=== PATIENT | female | born 1935 | race Caucasian/White ===

== ENCOUNTER → 2017-01-10 | Outpatient (REF) | payer MEDICARE, OTHER ==
[~2017-01-10] MED LIST: ALPR0.5T3 PO; ASPI81TA85 PO; ATOR1TAB19 PO; CELL250C PO; CITRTAB15 PO; CLON0.5T PO; CYCL10TA PO; EXEL4.6D TD; FOLI1TAB4 PO; FURO40TA2 PO; GABA-279 PO; ICAPCAP PO; KETO0.5S15 OD; META1TAB19 PO; MULT1TAB8 PO; PANT40TA2 PO; PIOG15TA3 PO; POLYOPD OU; SERT25TA PO; TRAM50TA2 PO
[2017-01-10 12:25] LABS: BASO % 0.7 % (0.0-1.0); EOS # 0.1 K/mm3 (0.0-0.50); EOS % 3.2 % (0.0-3.0); LARGE UNSTAINED CELL # 0.1 K/mm3 (0.0-0.4); LARGE UNSTAINED CELL % 1.7 % (0.0-4.0); LYMPH # 1.3 K/mm3 (1.5-4.5); LYMPH % 29.2 % (24.0-44.0); MEAN CORPUSCULAR HEMOGLOBIN 29.5 pg (27.0-33.0); MEAN CORPUSCULAR HGB CONC 32.2 g/dl (32.0-36.5); MEAN CORPUSCULAR VOLUME 91.7 fl (80.0-96.0); MONO # 0.4 K/mm3 (0.0-0.8); MONO % 8.1 % (0.0-5.0); NEUTROPHILS # 2.5 K/mm3 (1.8-7.7); NEUTROPHILS % 57.1 % (36.0-66.0); PLATELET COUNT, AUTOMATED 200 k/mm3 (150-450); RED CELL DISTRIBUTION WIDTH 13.8 % (11.5-14.5); WHITE BLOOD COUNT 4.3 K/mm3 (4.0-10.0)
[2017-01-10 14:49] LABS: ALBUMIN 3.8 GM/DL (3.2-5.2); ALBUMIN/GLOBULIN RATIO 1.06 (1.00-1.93); BILIRUBIN,TOTAL 0.4 MG/DL (0.2-1.0); CALCIUM LEVEL 8.9 MG/DL (8.8-10.2); CREATININE FOR GFR 1.25 MG/DL (0.55-1.02); GLOMERULAR FILTRATION RATE 43.7 (>32); POTASSIUM SERUM 3.9 MEQ/L (3.5-5.1); TOTAL PROTEIN 7.4 GM/DL (6.4-8.2)
== END ==
LOC: M SFHCADAM 08:13
PROVIDERS: ATTEND Physician Assistant Medical
DX: K21.9 Gastro-esophageal reflux disease without esophagitis (principal); E78.2 Mixed hyperlipidemia; E11.9 Type 2 diabetes mellitus without complications

== ENCOUNTER 2017-03-02 16:59 | Emergency (ER) | payer MEDICARE, BC, OTHER ==
[~2017-03-02 16:59] MED LIST changes: -CELL250C PO; -CLON0.5T PO; -META1TAB19 PO; -SERT25TA PO
[2017-03-02] MEDS ORDERED: CLON0.5T PO (17:38)
[2017-03-02] MEDS ORDERED: SERT25TA PO (17:38)
[2017-03-02] MEDS ORDERED: CELL250C PO (17:39)
[2017-03-02] MEDS ORDERED: META1TAB19 PO (17:40)
--- NOTE | 2017-03-02 18:04 | REP ---
CT Head without contrast HISTORY: Fall COMPARISON: 05/16/2015 Areas of decreased attenuation are present in the periventricular white matter. This represents small-vessel ischemic disease. There is no intraparenchymal hemorrhage, acute infarct, mass or midline shift. The ventricular system and cortical sulci are dilated consistent with moderate volume loss. There is no extra cerebral collection. There is no fracture. The visualized sinuses are clear. IMPRESSION: 1. Small vessel ischemic disease. 2. Moderate volume loss. Signed by Ernesto Son MD 03/02/2017 05:55 P
--- NOTE | 2017-03-02 18:12 | REP ---
CT CERVICAL SPINE WITHOUT CONTRAST: HISTORY: Fall. There is no acute fracture. Disc bulges are present at the C3-4 and C4-5 levels. Disc bulges with associated osteophyte formation are present at the C5-6 and C6-7 levels. There is minimal narrowing of the spinal canal. Uncinate process and or facet hypertrophy are present at the C3-4 through C7-T1 levels. These findings produce minimal to moderate narrowing of the neural foramina. The C5-6 through C7-T1 intervertebral discs are decreased in height consistent with disc degeneration. There are 2 mm of anterior subluxation of C7 on T1. IMPRESSION: 1. There is no acute fracture. 2. There is cervical spondylosis at the C3-4 through C7-T1 levels. Signed by Ernesto Son MD 03/02/2017 06:25 P
--- NOTE | 2017-03-02 18:57 | REP ---
THORACIC SPINE, THREE VIEWS: HISTORY: Fall. There is no acute fracture or subluxation. There is loss of height at several lower thoracic intervertebral discs. Osteophytes are present throughout the lumbar spine. The bony structure is osteopenic. IMPRESSION: There is no acute fracture or subluxation. Signed by Ernesto Son MD 03/02/2017 07:01 P
--- NOTE | 2017-03-02 18:59 | REP ---
PARTIAL LUMBAR SPINE, THREE VIEWS: HISTORY: Fall. There is no acute fracture. The intervertebral discs are decreased in height consistent with disc degeneration. Osteophytes are present throughout the lumbar spine. There is sclerosis of the L3-4 through L5-S1 facets. There are 8 mm of grade 1 spondylolisthesis of L4 on L5. IMPRESSION: Degenerative change as described above. Signed by Ernesto Son MD 03/02/2017 07:01 P
--- NOTE | 2017-03-02 19:00 | REP ---
RIGHT ELBOW, FOUR VIEWS: HISTORY: Fall. There is no acute fracture or dislocation. The joint space is normal in appearance. Osteophytes are present on the ulna. IMPRESSION: Degenerative change as described above. Signed by Ernesto Son MD 03/02/2017 07:01 P
[2017-03-02] MEDS ORDERED: NORCO 5/325MG TABLET (BULK FOR ED) PO ONE (19:15)
[2017-03-02 19:32] VITALS: BP 170/86
== END 2017-03-02 19:44 | disposition home or self-care (01) ==
LOC: M ED 16:59
DX: S09.90XA Unspecified injury of head, initial encounter (principal); S40.022A Contusion of left upper arm, initial encounter; S50.02XA Contusion of left elbow, initial encounter; W19.XXXA Unspecified fall, initial encounter; Y92.099 Unspecified place in other non-institutional residence as the place of occurrence of the external cause; Y93.9 Activity, unspecified; Y99.9 Unspecified external cause status; M47.812 Spondylosis without myelopathy or radiculopathy, cervical region; M47.813 Spondylosis without myelopathy or radiculopathy, cervicothoracic region; M51.36 Other intervertebral disc degeneration, lumbar region; M43.16 Spondylolisthesis, lumbar region; M25.78 Osteophyte, vertebrae; I25.2 Old myocardial infarction; Z86.73 Personal history of transient ischemic attack (TIA), and cerebral infarction without residual deficits; M19.90 Unspecified osteoarthritis, unspecified site; M32.9 Systemic lupus erythematosus, unspecified; Z79.82 Long term (current) use of aspirin; Z79.899 Other long term (current) drug therapy; Z88.2 Allergy status to sulfonamides

== ENCOUNTER → 2017-07-12 | Outpatient (REF) | payer MEDICARE, OTHER ==
[2017-07-12 20:07] LABS: ALBUMIN 3.6 GM/DL (3.2-5.2); ALBUMIN/GLOBULIN RATIO 1.03 (1.00-1.93); ALKALINE PHOSPHATASE 74 U/L (45-117); ALT/SGPT 21 U/L (12-78); ANION GAP 8 MEQ/L (8-16); AST/SGOT 22 U/L (7-37); BILIRUBIN,TOTAL 0.4 MG/DL (0.2-1.0); BLOOD UREA NITROGEN 16 MG/DL (7-18); CALCIUM LEVEL 8.5 MG/DL (8.8-10.2); CARBON DIOXIDE LEVEL 30 MEQ/L (21-32); CHLORIDE LEVEL 104 MEQ/L (98-107); CHOLESTEROL LEVEL 190 MG/DL (<200); CREATININE FOR GFR 1.05 MG/DL (0.55-1.02); GLOMERULAR FILTRATION RATE 53.3 (>32); GLUCOSE, FASTING 81 MG/DL (83-110); HDL CHOLESTEROL 50 MG/DL (>40); LDL CHOLESTEROL 104.6 MG/DL (<100); NON-HDL-C 140 MG/DL; POTASSIUM SERUM 3.8 MEQ/L (3.5-5.1); SODIUM LEVEL 142 MEQ/L (136-145); TOTAL PROTEIN 7.1 GM/DL (6.4-8.2); TRIGLYCERIDES LEVEL 177 MG/DL (<150)
[2017-07-12 20:24] LABS: ESTIMATED AVERAGE GLUCOSE 117 MG/DL (60-110); HEMOGLOBIN A1c 5.7 %
== END ==
LOC: M SFHCADAM 11:47
DX: E11.9 Type 2 diabetes mellitus without complications (principal); E78.2 Mixed hyperlipidemia; E03.9 Hypothyroidism, unspecified
CPT/HCPCS: 84443

== ENCOUNTER 2018-02-22 18:26 | Emergency (ER) | payer MEDICARE, BC, OTHER, MEDICAID ==
[2018-02-22 19:13] LABS: BASO # 0.1 10^3/uL (0.0-0.2); BASO % 0.9 % (0.0-1.0); EOS # 0.1 10^3/uL (0.0-0.50); EOS % 2.2 % (0.0-3.0); HEMOGLOBIN 10.8 g/dl (12.0-15.5); IMMATURE GRANULOCYTE % 0.4 % (0-3.0); LYMPH # 1.4 10^3/uL (1.5-4.5); LYMPH % 25.3 % (24.0-44.0); MEAN CORPUSCULAR HEMOGLOBIN 29.3 pg (27.0-33.0); MEAN CORPUSCULAR HGB CONC 31.8 g/dl (32.0-36.5); MEAN CORPUSCULAR VOLUME 92.4 fl (80.0-96.0); MONO # 0.5 10^3/uL (0.0-0.8); MONO % 8.3 % (0.0-5.0); NEUTROPHILS # 3.5 10^3/uL (1.8-7.7); NEUTROPHILS % 62.9 % (36.0-66.0); PLATELET COUNT, AUTOMATED 184 10^3/uL (150-450); RED BLOOD COUNT 3.68 10^6/uL (4.00-5.40); RED CELL DISTRIBUTION WIDTH 13.8 % (11.5-14.5); WHITE BLOOD COUNT 5.6 10^3/uL (4.0-10.0)
[2018-02-22 19:24] LABS: INR 0.98; PROTHROMBIN TIME 13.1 SECONDS (12.1-14.4)
[2018-02-22 19:25] LABS: PARTIAL THROMBOPLASTIN TIME 27.9 SECONDS (25.4-37.6)
[2018-02-22 19:37] LABS: ALBUMIN 3.7 GM/DL (3.2-5.2); ALBUMIN/GLOBULIN RATIO 1.03 (1.00-1.93); ALKALINE PHOSPHATASE 76 U/L (45-117); ALT/SGPT 23 U/L (12-78); ANION GAP 7 MEQ/L (8-16); AST/SGOT 20 U/L (7-37); BILIRUBIN,DIRECT 0.1 MG/DL (0.0-0.2); BILIRUBIN,TOTAL 0.3 MG/DL (0.2-1.0); BLOOD UREA NITROGEN 30 MG/DL (7-18); CALCIUM LEVEL 8.7 MG/DL (8.8-10.2); CARBON DIOXIDE LEVEL 29 MEQ/L (21-32); CHLORIDE LEVEL 107 MEQ/L (98-107); CK-MB VALUE MASS 5.4 NG/ML (<3.6); CPK CREATINE PHOSPHOKINASE 171 U/L (26-192); CREATININE FOR GFR 1.31 MG/DL (0.55-1.30); GLOMERULAR FILTRATION RATE 41.3 (>32); GLUCOSE, FASTING 99 MG/DL (70-100); LIPASE 83 U/L (73-393); MB/CK RELATIVE INDEX 3.15 (< OR =4); POTASSIUM SERUM 3.8 MEQ/L (3.5-5.1); SODIUM LEVEL 143 MEQ/L (136-145); TOTAL PROTEIN 7.3 GM/DL (6.4-8.2); TROPONIN I < 0.02 NG/ML (< 0.10)
== END 2018-02-22 21:43 | disposition home or self-care (01) ==
LOC: M ED 18:26
DX: R07.89 Other chest pain (principal); R29.6 Repeated falls; E11.9 Type 2 diabetes mellitus without complications; I10 Essential (primary) hypertension; K21.9 Gastro-esophageal reflux disease without esophagitis; F41.9 Anxiety disorder, unspecified; E03.9 Hypothyroidism, unspecified; F03.90 Unspecified dementia, unspecified severity, without behavioral disturbance, psychotic disturbance, mood disturbance, and anxiety; R56.9 Unspecified convulsions; M06.9 Rheumatoid arthritis, unspecified; Z79.82 Long term (current) use of aspirin; Z88.2 Allergy status to sulfonamides
CPT/HCPCS: 71046

== ENCOUNTER → 2018-04-14 | Outpatient (CLI) | payer MEDICARE, OTHER | LOC: M RAD 11:04 | DX: I73.9 Peripheral vascular disease, unspecified (principal); R29.6 Repeated falls; S09.0XXA Injury of blood vessels of head, not elsewhere classified, initial encounter; F02.80 Dementia in other diseases classified elsewhere, unspecified severity, without behavioral disturbance, psychotic disturbance, mood disturbance, and anxiety; X58.XXXA Exposure to other specified factors, initial encounter; Y93.89 Activity, other specified | CPT/HCPCS: 70450 ==

== ENCOUNTER 2018-05-16 15:01 | Inpatient (IN) | payer MEDICARE, OTHER ==
[2018-05-16 18:57] LABS: BASO % 0.3 % (0.0-1.0); EOS # 0.2 10^3/uL (0.0-0.50); EOS % 1.7 % (0.0-3.0); HEMATOCRIT 33.9 % (36.0-47.0); HEMOGLOBIN 10.8 g/dl (12.0-15.5); IMMATURE GRANULOCYTE % 0.3 % (0-3.0); LYMPH # 0.5 10^3/uL (1.5-4.5); LYMPH % 6.3 % (24.0-44.0); MEAN CORPUSCULAR HEMOGLOBIN 29.6 pg (27.0-33.0); MEAN CORPUSCULAR HGB CONC 31.9 g/dl (32.0-36.5); MEAN CORPUSCULAR VOLUME 92.9 fl (80.0-96.0); MONO # 0.6 10^3/uL (0.0-0.8); MONO % 6.5 % (0.0-5.0); NEUTROPHILS # 7.3 10^3/uL (1.8-7.7); NEUTROPHILS % 84.9 % (36.0-66.0); PLATELET COUNT, AUTOMATED 214 10^3/uL (150-450); RED BLOOD COUNT 3.65 10^6/uL (4.00-5.40); RED CELL DISTRIBUTION WIDTH 14.2 % (11.5-14.5); WHITE BLOOD COUNT 8.6 10^3/uL (4.0-10.0)
[2018-05-16 19:35] LABS: ALBUMIN 3.3 GM/DL (3.2-5.2); ALBUMIN/GLOBULIN RATIO 0.83 (1.00-1.93); ALKALINE PHOSPHATASE 79 U/L (45-117); ALT/SGPT 20 U/L (12-78); ANION GAP 11 MEQ/L (8-16); AST/SGOT 22 U/L (7-37); BILIRUBIN,DIRECT 0.2 MG/DL (0.0-0.2); BILIRUBIN,TOTAL 0.5 MG/DL (0.2-1.0); BLOOD UREA NITROGEN 24 MG/DL (7-18); CALCIUM LEVEL 8.6 MG/DL (8.8-10.2); CARBON DIOXIDE LEVEL 28 MEQ/L (21-32); CHLORIDE LEVEL 99 MEQ/L (98-107); CPK CREATINE PHOSPHOKINASE 76 U/L (26-192); CREATININE FOR GFR 1.26 MG/DL (0.55-1.30); FREE T4 1.06 NG/DL (0.76-1.46); GLOMERULAR FILTRATION RATE 43.1 (>32); GLUCOSE, FASTING 102 MG/DL (70-100); LIPASE 1270 U/L (73-393); MB/CK RELATIVE INDEX 1.84 (< OR =4); NT-PRO BNP 1473 PG/ML (<450); POTASSIUM SERUM 3.4 MEQ/L (3.5-5.1); SODIUM LEVEL 138 MEQ/L (136-145); TOTAL PROTEIN 7.3 GM/DL (6.4-8.2); TROPONIN I < 0.02 NG/ML (< 0.10)
[2018-05-16] MEDS: NS 500 ML IV (20:15)
[2018-05-16] MEDS ORDERED: ISOVUE-370 76% 100ML VIAL (Q9967) As Ordered (20:31)
[2018-05-16 20:38] LABS: KETONE, URINE AUTO RFX NEGATIVE (NEGATIVE); LEUKOCYTE ESTERASE UR AUTO RFX NEGATIVE (NEGATIVE); NITRITE, URINE AUTO RFX NEGATIVE (NEGATIVE); RBC, URINE AUTO RFX 2 /HPF (0-3); SPECIFIC GRAVITY UR AUTO RFX 1.009 (1.002-1.035); SQUAM EPITHELIAL CELL UR AURFX 0 /HPF (0-6); WBC, URINE AUTO RFX 0 /HPF (0-3)
[2018-05-16] MEDS ORDERED: ACETAMINOPHEN 500 MG TAB PO (21:00)
[2018-05-16] MEDS: ACETAMINOPHEN 325 MG TAB PO (21:02)
[2018-05-16 21:34] LABS: INFLUENZA A AMPLIFICATION NEGATIVE (NEGATIVE); INFLUENZA B AMPLIFICATION NEGATIVE (NEGATIVE)
[2018-05-16] MEDS ORDERED: MORPHINE 4 MG/ML 1ML VIAL/SYRINGE (J2270) IV (23:45)
[2018-05-17 00:28] LABS: ANION GAP 10 MEQ/L (8-16); BLOOD UREA NITROGEN 21 MG/DL (7-18); CALCIUM LEVEL 8.1 MG/DL (8.8-10.2); CARBON DIOXIDE LEVEL 25 MEQ/L (21-32); CHLORIDE LEVEL 103 MEQ/L (98-107); CREATININE FOR GFR 1.21 MG/DL (0.55-1.30); GLOMERULAR FILTRATION RATE 45.1 (>32); GLUCOSE, FASTING 103 MG/DL (70-100); POTASSIUM SERUM 3.1 MEQ/L (3.5-5.1); SODIUM LEVEL 138 MEQ/L (136-145)
[2018-05-17] MEDS: clonazePAM 1 MG TAB PO ×2 (01:06→20:40)
[2018-05-17] MEDS: GABAPENTIN 100 MG CAP PO ×2 (01:06→20:40)
[2018-05-17] MEDS ORDERED: DEXTROSE 50% 50 ML SYRINGE IV (01:15)
[2018-05-17] MEDS ORDERED: GLUCAGON FOR INJ 1 MG VIAL (J1610) SC (01:15)
[2018-05-17] MEDS ORDERED: GLUCOSE 4 GM CHEW TABLET PO (01:15)
[2018-05-17 05:32] LABS: BASO % 0.5 % (0.0-1.0); EOS # 0.1 10^3/uL (0.0-0.50); EOS % 1.8 % (0.0-3.0); HEMOGLOBIN 9.4 g/dl (12.0-15.5); IMMATURE GRANULOCYTE % 0.2 % (0-3.0); LYMPH # 0.8 10^3/uL (1.5-4.5); LYMPH % 12.3 % (24.0-44.0); MEAN CORPUSCULAR HEMOGLOBIN 29.5 pg (27.0-33.0); MEAN CORPUSCULAR HGB CONC 32.4 g/dl (32.0-36.5); MEAN CORPUSCULAR VOLUME 90.9 fl (80.0-96.0); MONO # 0.5 10^3/uL (0.0-0.8); MONO % 8.4 % (0.0-5.0); NEUTROPHILS # 4.7 10^3/uL (1.8-7.7); NEUTROPHILS % 76.8 % (36.0-66.0); PLATELET COUNT, AUTOMATED 200 10^3/uL (150-450); RED BLOOD COUNT 3.19 10^6/uL (4.00-5.40); RED CELL DISTRIBUTION WIDTH 14.2 % (11.5-14.5); WHITE BLOOD COUNT 6.2 10^3/uL (4.0-10.0)
[2018-05-17 05:51] LABS: ANION GAP 8 MEQ/L (8-16); BLOOD UREA NITROGEN 20 MG/DL (7-18); CALCIUM LEVEL 8.4 MG/DL (8.8-10.2); CARBON DIOXIDE LEVEL 28 MEQ/L (21-32); CHLORIDE LEVEL 103 MEQ/L (98-107); CREATININE FOR GFR 1.09 MG/DL (0.55-1.30); GLOMERULAR FILTRATION RATE 50.9 (>32); GLUCOSE, FASTING 90 MG/DL (70-100); POTASSIUM SERUM 3.2 MEQ/L (3.5-5.1); SODIUM LEVEL 139 MEQ/L (136-145)
[2018-05-17] MEDS: HumaLOG INSULIN (NovoLOG) PER UNIT SC ×4 (07:30→20:05)
[2018-05-17] MEDS: ACETAMINOPHEN TAB 650MG DOSE (2X325MG) PO (08:29)
[2018-05-17] MEDS: SERTRALINE HCL 25 MG TABLET PO ×3 (09:00→20:40)
[2018-05-17] MEDS: PROPRANOLOL 60 MG LA CAP PO (09:00)
[2018-05-17] MEDS: ENOXAPARIN 30 MG/0.3 ML SYR (J1650) SC (09:31)
[2018-05-17] MEDS: FOLIC ACID 1 MG TAB PO (09:31)
[2018-05-17] MEDS: METAXALONE 400 MG 1/2 TAB PO (09:31)
[2018-05-17] MEDS: ATORVASTATIN 10 MG TAB PO (09:31)
[2018-05-17] MEDS: clonazePAM 0.5 MG TAB PO (09:35)
[2018-05-17] MEDS: FUROSEMIDE 40 MG TAB PO (09:35)
[2018-05-17] MEDS: CALCIUM/VITAMIN D 500 MG TAB PO ×2 (09:35→20:39)
[2018-05-17] MEDS: SENOKOT S TAB PO ×2 (09:35→19:42)
[2018-05-17] MEDS: PANTOPRAZOLE 40MG TAB (PROTONIX) PO (09:36)
[2018-05-17 11:29] LABS: ANION GAP 10 MEQ/L (8-16); BLOOD UREA NITROGEN 21 MG/DL (7-18); CALCIUM LEVEL 8.6 MG/DL (8.8-10.2); CARBON DIOXIDE LEVEL 27 MEQ/L (21-32); CHLORIDE LEVEL 103 MEQ/L (98-107); GLOMERULAR FILTRATION RATE 45.6 (>32); GLUCOSE, FASTING 104 MG/DL (70-100); LIPASE 1108 U/L (73-393); POTASSIUM SERUM 3.3 MEQ/L (3.5-5.1); SODIUM LEVEL 140 MEQ/L (136-145)
[2018-05-17 12:41] LABS: BEDSIDE GLUCOSE 115 MG/DL (83-110)
[2018-05-17] MEDS: POTASSIUM CHLORIDE 10 MEQ SR TABLET PO (13:03)
[2018-05-17] MEDS: FLUBLOK(EGG FREE)(QUAD)INFLUENZA VACC 0.5ML SYRINGE (90682)18YRS&OLDER IM (15:42)
[2018-05-17 16:47] LABS: BEDSIDE GLUCOSE 116 MG/DL (83-110)
[2018-05-17 18:21] LABS: ANION GAP 9 MEQ/L (8-16); BLOOD UREA NITROGEN 20 MG/DL (7-18); CALCIUM LEVEL 8.8 MG/DL (8.8-10.2); CARBON DIOXIDE LEVEL 28 MEQ/L (21-32); CHLORIDE LEVEL 103 MEQ/L (98-107); CREATININE FOR GFR 1.29 MG/DL (0.55-1.30); GLOMERULAR FILTRATION RATE 41.9 (>32); GLUCOSE, FASTING 123 MG/DL (70-100); POTASSIUM SERUM 3.7 MEQ/L (3.5-5.1); SODIUM LEVEL 140 MEQ/L (136-145)
[2018-05-17] MEDS: ONDANSETRON 4MG/2ML VIAL (J2405) IV (20:00)
[2018-05-17 20:03] LABS: BEDSIDE GLUCOSE 126 MG/DL (83-110)
[2018-05-17] MEDS: METAXALONE 800 MG TABLET PO (20:39)
[2018-05-17] MEDS: RIVASTIGMINE 13.3 MG/24 HR TD (20:39)
[2018-05-17] MEDS: DYAZIDE 37.5/25 CAP (TRIAM/HCTZ) PO (20:41)
[2018-05-17] MEDS: ACETAMINOPHEN 500 MG TAB PO (20:47)
[2018-05-18] MEDS: ACETAMINOPHEN TAB 650MG DOSE (2X325MG) PO ×2 (00:40→09:33)
[2018-05-18] MEDS: HumaLOG INSULIN (NovoLOG) PER UNIT SC ×4 (06:41→19:58)
[2018-05-18 06:42] LABS: BEDSIDE GLUCOSE 98 MG/DL (83-110)
[2018-05-18 07:05] LABS: BASO % 0.6 % (0.0-1.0); EOS # 0.1 10^3/uL (0.0-0.50); EOS % 2.4 % (0.0-3.0); HEMATOCRIT 29.4 % (36.0-47.0); HEMOGLOBIN 9.3 g/dl (12.0-15.5); IMMATURE GRANULOCYTE % 0.6 % (0-3.0); LYMPH # 1.1 10^3/uL (1.5-4.5); LYMPH % 21.7 % (24.0-44.0); MEAN CORPUSCULAR HEMOGLOBIN 29.4 pg (27.0-33.0); MEAN CORPUSCULAR HGB CONC 31.6 g/dl (32.0-36.5); MONO # 0.4 10^3/uL (0.0-0.8); MONO % 8.9 % (0.0-5.0); NEUTROPHILS # 3.3 10^3/uL (1.8-7.7); NEUTROPHILS % 65.8 % (36.0-66.0); PLATELET COUNT, AUTOMATED 242 10^3/uL (150-450); RED BLOOD COUNT 3.16 10^6/uL (4.00-5.40); RED CELL DISTRIBUTION WIDTH 14.1 % (11.5-14.5); WHITE BLOOD COUNT 4.9 10^3/uL (4.0-10.0)
[2018-05-18 07:31] LABS: ALBUMIN 2.5 GM/DL (3.2-5.2); ALBUMIN/GLOBULIN RATIO 0.63 (1.00-1.93); ALKALINE PHOSPHATASE 70 U/L (45-117); ALT/SGPT 17 U/L (12-78); ANION GAP 8 MEQ/L (8-16); AST/SGOT 18 U/L (7-37); BILIRUBIN,TOTAL 0.2 MG/DL (0.2-1.0); BLOOD UREA NITROGEN 19 MG/DL (7-18); CALCIUM LEVEL 8.4 MG/DL (8.8-10.2); CARBON DIOXIDE LEVEL 27 MEQ/L (21-32); CHLORIDE LEVEL 108 MEQ/L (98-107); CREATININE FOR GFR 1.17 MG/DL (0.55-1.30); GLOMERULAR FILTRATION RATE 46.9 (>32); GLUCOSE, FASTING 95 MG/DL (70-100); LIPASE 969 U/L (73-393); POTASSIUM SERUM 3.7 MEQ/L (3.5-5.1); SODIUM LEVEL 143 MEQ/L (136-145); TOTAL PROTEIN 6.5 GM/DL (6.4-8.2)
[2018-05-18] MEDS: SENOKOT S TAB PO ×2 (09:00→19:53)
[2018-05-18] MEDS: FUROSEMIDE 40 MG TAB PO (09:31)
[2018-05-18] MEDS: PANTOPRAZOLE 40MG TAB (PROTONIX) PO (09:31)
[2018-05-18] MEDS: CALCIUM/VITAMIN D 500 MG TAB PO ×2 (09:31→19:52)
[2018-05-18] MEDS: SERTRALINE HCL 25 MG TABLET PO ×3 (09:32→19:53)
[2018-05-18] MEDS: clonazePAM 0.5 MG TAB PO (09:32)
[2018-05-18] MEDS: FOLIC ACID 1 MG TAB PO (09:32)
[2018-05-18] MEDS: ATORVASTATIN 10 MG TAB PO (09:32)
[2018-05-18] MEDS: METAXALONE 400 MG 1/2 TAB PO (09:33)
[2018-05-18] MEDS: PROPRANOLOL 60 MG LA CAP PO (09:36)
[2018-05-18] MEDS: ENOXAPARIN 30 MG/0.3 ML SYR (J1650) SC (09:37)
[2018-05-18 12:20] LABS: BEDSIDE GLUCOSE 120 MG/DL (83-110)
[2018-05-18] MEDS ORDERED: traMADol 50 MG TAB As Ordered (12:44)
[2018-05-18] MEDS: traMADol 50 MG TAB PO (12:52)
[2018-05-18 16:19] LABS: BEDSIDE GLUCOSE 116 MG/DL (83-110)
[2018-05-18 19:41] LABS: BEDSIDE GLUCOSE 147 MG/DL (83-110)
[2018-05-18] MEDS: DYAZIDE 37.5/25 CAP (TRIAM/HCTZ) PO (19:52)
[2018-05-18] MEDS: GABAPENTIN 100 MG CAP PO (19:52)
[2018-05-18] MEDS: clonazePAM 1 MG TAB PO (19:52)
[2018-05-18] MEDS: ACETAMINOPHEN 500 MG TAB PO (19:53)
[2018-05-18] MEDS: METAXALONE 800 MG TABLET PO (19:53)
[2018-05-18] MEDS: RIVASTIGMINE 13.3 MG/24 HR TD (19:54)
[2018-05-19] MEDS: ACETAMINOPHEN TAB 650MG DOSE (2X325MG) PO (06:19)
[2018-05-19 06:21] LABS: BEDSIDE GLUCOSE 88 MG/DL (83-110)
[2018-05-19] MEDS: HumaLOG INSULIN (NovoLOG) PER UNIT SC ×4 (06:46→21:00)
[2018-05-19 08:19] LABS: BASO % 0.9 % (0.0-1.0); EOS # 0.2 10^3/uL (0.0-0.50); EOS % 3.8 % (0.0-3.0); HEMATOCRIT 32.3 % (36.0-47.0); HEMOGLOBIN 10.2 g/dl (12.0-15.5); IMMATURE GRANULOCYTE % 0.4 % (0-3.0); LYMPH % 21.1 % (24.0-44.0); MEAN CORPUSCULAR HEMOGLOBIN 29.6 pg (27.0-33.0); MEAN CORPUSCULAR HGB CONC 31.6 g/dl (32.0-36.5); MEAN CORPUSCULAR VOLUME 93.6 fl (80.0-96.0); MONO # 0.4 10^3/uL (0.0-0.8); MONO % 7.8 % (0.0-5.0); PLATELET COUNT, AUTOMATED 311 10^3/uL (150-450); RED BLOOD COUNT 3.45 10^6/uL (4.00-5.40); RED CELL DISTRIBUTION WIDTH 13.9 % (11.5-14.5); WHITE BLOOD COUNT 4.5 10^3/uL (4.0-10.0)
[2018-05-19 08:40] LABS: LIPASE 1048 U/L (73-393)
[2018-05-19] MEDS: SENOKOT S TAB PO ×2 (09:00→21:00)
[2018-05-19] MEDS ORDERED: traMADol 50 MG TAB PO (09:00)
[2018-05-19] MEDS: PROPRANOLOL 60 MG LA CAP PO (09:00)
[2018-05-19] MEDS: ENOXAPARIN 30 MG/0.3 ML SYR (J1650) SC (10:07)
[2018-05-19] MEDS: METAXALONE 400 MG 1/2 TAB PO (10:08)
[2018-05-19] MEDS: FUROSEMIDE 40 MG TAB PO (10:09)
[2018-05-19] MEDS: ATORVASTATIN 10 MG TAB PO (10:09)
[2018-05-19] MEDS: SERTRALINE HCL 25 MG TABLET PO ×3 (10:09→21:07)
[2018-05-19] MEDS: CALCIUM/VITAMIN D 500 MG TAB PO ×2 (10:09→21:00)
[2018-05-19] MEDS: FOLIC ACID 1 MG TAB PO (10:10)
[2018-05-19] MEDS: PANTOPRAZOLE 40MG TAB (PROTONIX) PO (10:10)
[2018-05-19] MEDS: clonazePAM 0.5 MG TAB PO (10:11)
[2018-05-19] MEDS: traMADol 50 MG TAB PO (10:12)
[2018-05-19 11:48] LABS: BEDSIDE GLUCOSE 88 MG/DL (83-110)
[2018-05-19 16:44] LABS: BEDSIDE GLUCOSE 102 MG/DL (83-110)
[2018-05-19 20:53] LABS: BEDSIDE GLUCOSE 132 MG/DL (83-110)
[2018-05-19] MEDS: DYAZIDE 37.5/25 CAP (TRIAM/HCTZ) PO (20:59)
[2018-05-19] MEDS: GABAPENTIN 100 MG CAP PO (21:00)
[2018-05-19] MEDS: clonazePAM 1 MG TAB PO (21:00)
[2018-05-19] MEDS: ACETAMINOPHEN 500 MG TAB PO (21:01)
[2018-05-19] MEDS: METAXALONE 800 MG TABLET PO (21:06)
[2018-05-19] MEDS: RIVASTIGMINE 13.3 MG/24 HR TD (21:09)
[2018-05-20 07:14] LABS: BASO % 0.7 % (0.0-1.0); EOS # 0.2 10^3/uL (0.0-0.50); EOS % 4.1 % (0.0-3.0); HEMATOCRIT 33.4 % (36.0-47.0); HEMOGLOBIN 10.5 g/dl (12.0-15.5); IMMATURE GRANULOCYTE % 0.4 % (0-3.0); LYMPH # 1.1 10^3/uL (1.5-4.5); LYMPH % 24.9 % (24.0-44.0); MEAN CORPUSCULAR HEMOGLOBIN 28.9 pg (27.0-33.0); MEAN CORPUSCULAR HGB CONC 31.4 g/dl (32.0-36.5); MONO # 0.3 10^3/uL (0.0-0.8); MONO % 6.6 % (0.0-5.0); NEUTROPHILS # 2.9 10^3/uL (1.8-7.7); NEUTROPHILS % 63.3 % (36.0-66.0); PLATELET COUNT, AUTOMATED 315 10^3/uL (150-450); RED BLOOD COUNT 3.63 10^6/uL (4.00-5.40); RED CELL DISTRIBUTION WIDTH 13.7 % (11.5-14.5); WHITE BLOOD COUNT 4.6 10^3/uL (4.0-10.0)
[2018-05-20 07:37] LABS: ALKALINE PHOSPHATASE 74 U/L (45-117); ALT/SGPT 18 U/L (12-78); ANION GAP 7 MEQ/L (8-16); AST/SGOT 16 U/L (7-37); BILIRUBIN,TOTAL 0.3 MG/DL (0.2-1.0); BLOOD UREA NITROGEN 23 MG/DL (7-18); CALCIUM LEVEL 9.1 MG/DL (8.8-10.2); CARBON DIOXIDE LEVEL 30 MEQ/L (21-32); CHLORIDE LEVEL 103 MEQ/L (98-107); CREATININE FOR GFR 1.06 MG/DL (0.55-1.30); GLOMERULAR FILTRATION RATE 52.6 (>32); GLUCOSE, FASTING 103 MG/DL (70-100); POTASSIUM SERUM 3.6 MEQ/L (3.5-5.1); SODIUM LEVEL 140 MEQ/L (136-145)
[2018-05-20 07:38] LABS: ALBUMIN 2.8 GM/DL (3.2-5.2); ALBUMIN/GLOBULIN RATIO 0.62 (1.00-1.93); LIPASE 930 U/L (73-393); TOTAL PROTEIN 7.3 GM/DL (6.4-8.2)
[2018-05-20] MEDS: SENOKOT S TAB PO (09:00)
[2018-05-20] MEDS: ATORVASTATIN 10 MG TAB PO (09:35)
[2018-05-20] MEDS: PROPRANOLOL 60 MG LA CAP PO (09:35)
[2018-05-20] MEDS: clonazePAM 0.5 MG TAB PO (09:35)
[2018-05-20] MEDS: SERTRALINE HCL 25 MG TABLET PO ×2 (09:36→15:17)
[2018-05-20] MEDS: METAXALONE 400 MG 1/2 TAB PO (09:36)
[2018-05-20] MEDS: traMADol 50 MG TAB PO (09:36)
[2018-05-20] MEDS: PANTOPRAZOLE 40MG TAB (PROTONIX) PO (09:36)
[2018-05-20] MEDS: FUROSEMIDE 40 MG TAB PO (09:38)
[2018-05-20] MEDS: FOLIC ACID 1 MG TAB PO (09:38)
[2018-05-20] MEDS: ENOXAPARIN 30 MG/0.3 ML SYR (J1650) SC (09:38)
[2018-05-20] MEDS: CALCIUM/VITAMIN D 500 MG TAB PO (09:38)
[2018-05-20] MEDS: HumaLOG INSULIN (NovoLOG) PER UNIT SC ×2 (09:39→13:31)
[2018-05-20 11:36] LABS: BEDSIDE GLUCOSE 104 MG/DL (83-110)
[2018-05-20] MEDS: ACETAMINOPHEN TAB 650MG DOSE (2X325MG) PO (15:17)
[2018-05-20 16:50] LABS: BEDSIDE GLUCOSE 118 MG/DL (83-110)
== END 2018-05-20 17:10 | disposition home or self-care (01) | DRG 440 ==
LOC: M MS4PR 05-17 02:45 → M ED 15:01 → M ED INP 22:56
PROVIDERS: Hospitalist
DX: K85.90 Acute pancreatitis without necrosis or infection, unspecified (principal); M32.9 Systemic lupus erythematosus, unspecified; I10 Essential (primary) hypertension; F32.9 Major depressive disorder, single episode, unspecified; E78.5 Hyperlipidemia, unspecified; G25.0 Essential tremor; R29.6 Repeated falls; E11.9 Type 2 diabetes mellitus without complications; E78.00 Pure hypercholesterolemia, unspecified; F03.90 Unspecified dementia, unspecified severity, without behavioral disturbance, psychotic disturbance, mood disturbance, and anxiety; Z90.710 Acquired absence of both cervix and uterus; Z90.49 Acquired absence of other specified parts of digestive tract; Z85.51 Personal history of malignant neoplasm of bladder; Z79.82 Long term (current) use of aspirin; Z79.891 Long term (current) use of opiate analgesic; Z79.899 Other long term (current) drug therapy; Z88.2 Allergy status to sulfonamides

== ENCOUNTER → 2018-07-13 | Outpatient (CLI) | payer MEDICARE, OTHER, BC ==
[~2018-07-13] MED LIST changes: +ACET500T15 PO; +ARTI99.0 OU; +AZAT50TA2 PO; +CALC600T3 PO; +CALCD50TA PO; +CELL250C PO; +CLON0.5T8 PO; +FOLI1TAB11 PO; -FOLI1TAB4 PO; +GABA-1171 PO; -GABA-279 PO; +MECL-68 PO; +META1TAB19 PO; +NAME5TAB13 PO; -PANT40TA2 PO; +PANT40TA3 PO; -PIOG15TA3 PO; +PIOG1TAB36 PO; +PROP60CA PO; +PROP60TA14 PO; +RIVA1DIS3 TD; +SERT25TA PO; +TRIA37.5 PO
[2018-07-13 19:50] LABS: ALBUMIN 3.9 GM/DL (3.2-5.2); ALT/SGPT 23 U/L (12-78); AMYLASE 51 U/L (25-115); BILIRUBIN,TOTAL 0.3 MG/DL (0.2-1.0); BLOOD UREA NITROGEN 24 MG/DL (7-18); C REACTIVE PROTEIN QUANTITATIV < 0.30 MG/DL (0.00-0.30); CALCIUM LEVEL 9.1 MG/DL (8.8-10.2); CARBON DIOXIDE LEVEL 32 MEQ/L (21-32); CHLORIDE LEVEL 103 MEQ/L (98-107); CREATININE FOR GFR 1.29 MG/DL (0.55-1.30); GLOMERULAR FILTRATION RATE 41.9 (>32); GLUCOSE, FASTING 109 MG/DL (70-100); LIPASE 108 U/L (73-393); POTASSIUM SERUM 3.9 MEQ/L (3.5-5.1); RHEUMATOID FACTOR QUANT < 10.0 IU/ML (<15.0); SODIUM LEVEL 140 MEQ/L (136-145); TOTAL PROTEIN 7.7 GM/DL (6.4-8.2); URIC ACID 7.1 MG/DL (2.6-6.0)
[2018-07-13 19:55] LABS: BASO # 0.1 10^3/uL (0.0-0.2); BASO % 0.9 % (0.0-1.0); EOS # 0.2 10^3/uL (0.0-0.50); EOS % 2.8 % (0.0-3.0); HEMATOCRIT 37.5 % (36.0-47.0); HEMOGLOBIN 11.5 g/dl (12.0-15.5); LYMPH # 1.6 10^3/uL (1.5-4.5); MEAN CORPUSCULAR HEMOGLOBIN 28.8 pg (27.0-33.0); MEAN CORPUSCULAR HGB CONC 30.7 g/dl (32.0-36.5); MONO # 0.6 10^3/uL (0.0-0.8); MONO % 10.1 % (0.0-5.0); NEUTROPHILS # 3.9 10^3/uL (1.8-7.7); NEUTROPHILS % 60.9 % (36.0-66.0); PLATELET COUNT, AUTOMATED 225 10^3/uL (150-450); RED BLOOD COUNT 3.99 10^6/uL (4.00-5.40); WHITE BLOOD COUNT 6.4 10^3/uL (4.0-10.0)
[2018-07-13 20:46] LABS: ERYTHROCYTE SEDIMENTATION RATE 38 mm/hr (0-30)
[2018-07-18 00:07] LABS: ANTI DOUBLE STRAND-DNA AB >300 IU/mL (0-9); ANTINUCLEAR ANTIBODIES DIRECT Positive (Negative); CYCLIC CITRULLINATED PEPTIDE 9 units (0-19); RNP ANTIBODIES <0.2 AI (0.0-0.9); SJOGREN'S ANTI SS-A <0.2 AI (0.0-0.9); SJOGREN'S ANTI SS-B <0.2 AI (0.0-0.9); SMITH ANTIBODIES <0.2 AI (0.0-0.9)
== END ==
LOC: M LABDRWAD 15:26
PROVIDERS: ATTEND Internal Medicine Rheumatology
DX: K85.30 Drug induced acute pancreatitis without necrosis or infection (principal); M32.19 Other organ or system involvement in systemic lupus erythematosus

== ENCOUNTER → 2018-08-15 | Outpatient (REF) | payer MEDICARE, OTHER, BC ==
[2018-08-15 09:58] LABS: BASO % 0.9 % (0.0-1.0); EOS # 0.1 10^3/uL (0.0-0.50); EOS % 2.1 % (0.0-3.0); HEMATOCRIT 36.2 % (36.0-47.0); HEMOGLOBIN 11.1 g/dl (12.0-15.5); LYMPH % 21.9 % (24.0-44.0); MEAN CORPUSCULAR HEMOGLOBIN 28.8 pg (27.0-33.0); MEAN CORPUSCULAR HGB CONC 30.7 g/dl (32.0-36.5); MONO # 0.3 10^3/uL (0.0-0.8); MONO % 7.6 % (0.0-5.0); NEUTROPHILS # 2.9 10^3/uL (1.8-7.7); NEUTROPHILS % 67.3 % (36.0-66.0); PLATELET COUNT, AUTOMATED 189 10^3/uL (150-450); RED BLOOD COUNT 3.85 10^6/uL (4.00-5.40); WHITE BLOOD COUNT 4.3 10^3/uL (4.0-10.0)
[2018-08-15 10:43] LABS: ALBUMIN 3.7 GM/DL (3.2-5.2); BILIRUBIN,TOTAL 0.4 MG/DL (0.2-1.0); CALCIUM LEVEL 9.1 MG/DL (8.8-10.2); CREATININE FOR GFR 1.06 MG/DL (0.55-1.30); FREE T4 0.79 NG/DL (0.76-1.46); GLOMERULAR FILTRATION RATE 52.6 (>32); POTASSIUM SERUM 3.7 MEQ/L (3.5-5.1); THYROID STIMULATING HORMONE 3.7 uIU/ML (0.358-3.740); TOTAL 25(OH) VITAMIN D 27.3 NG/ML (30.0-100.0)
== END ==
PROVIDERS: ATTEND Physician Assistant Medical
DX: E03.9 Hypothyroidism, unspecified (principal); E11.9 Type 2 diabetes mellitus without complications; E66.01 Morbid (severe) obesity due to excess calories; E78.2 Mixed hyperlipidemia

== ENCOUNTER → 2018-08-22 | Outpatient (REF) | payer MEDICARE, OTHER, BC ==
[2018-08-22 12:10] LABS: BASO # 0.1 10^3/uL (0.0-0.2); BASO % 1.3 % (0.0-1.0); EOS # 0.1 10^3/uL (0.0-0.50); HEMATOCRIT 35.6 % (36.0-47.0); LYMPH # 1.3 10^3/uL (1.5-4.5); LYMPH % 27.9 % (24.0-44.0); MEAN CORPUSCULAR HEMOGLOBIN 28.7 pg (27.0-33.0); MEAN CORPUSCULAR HGB CONC 30.9 g/dl (32.0-36.5); MONO # 0.5 10^3/uL (0.0-0.8); MONO % 9.9 % (0.0-5.0); NEUTROPHILS # 2.7 10^3/uL (1.8-7.7); NEUTROPHILS % 57.7 % (36.0-66.0); PLATELET COUNT, AUTOMATED 199 10^3/uL (150-450); RED BLOOD COUNT 3.83 10^6/uL (4.00-5.40); WHITE BLOOD COUNT 4.7 10^3/uL (4.0-10.0)
[2018-08-22 12:43] LABS: HEMOGLOBIN A1c 6.1 %
[2018-08-22 12:56] LABS: ALBUMIN 3.7 GM/DL (3.2-5.2); BILIRUBIN,TOTAL 0.5 MG/DL (0.2-1.0); CALCIUM LEVEL 8.9 MG/DL (8.8-10.2); CHOLESTEROL RISK RATIO 2.611 (<5); CREATININE FOR GFR 1.08 MG/DL (0.55-1.30); FREE T4 0.82 NG/DL (0.76-1.46); GLOMERULAR FILTRATION RATE 51.5 (>32); POTASSIUM SERUM 3.9 MEQ/L (3.5-5.1); THYROID STIMULATING HORMONE 3.87 uIU/ML (0.358-3.740); TOTAL 25(OH) VITAMIN D 30.5 NG/ML (30.0-100.0); TOTAL PROTEIN 7.2 GM/DL (6.4-8.2)
== END ==
PROVIDERS: ATTEND Physician Assistant Medical
DX: F03.90 Unspecified dementia, unspecified severity, without behavioral disturbance, psychotic disturbance, mood disturbance, and anxiety (principal); E11.9 Type 2 diabetes mellitus without complications; E66.01 Morbid (severe) obesity due to excess calories; E55.9 Vitamin D deficiency, unspecified; E78.2 Mixed hyperlipidemia

== ENCOUNTER 2018-10-08 11:37 | Inpatient (IN) | payer MEDICARE, BC, OTHER, MEDICAID ==
[~2018-10-08] VITALS: Ht 160 cm; Wt 79.4 kg
[~2018-10-08 11:37] MED LIST changes: -META1TAB19 PO; +META400T PO; -SERT25TA PO; +SERT25TA85 PO
[2018-10-08] MEDS ORDERED: NS 1,000 ML IV SCH (11:41)
[2018-10-08] MEDS ORDERED: NS 500 ML IV ONE ×2 (11:45→13:00)
[2018-10-08 12:07] LABS: BASO % 0.1 % (0.0-1.0); EOS % 0.1 % (0.0-3.0); HEMATOCRIT 37.7 % (36.0-47.0); LYMPH % 2.2 % (24.0-44.0); MEAN CORPUSCULAR HEMOGLOBIN 28.9 pg (27.0-33.0); MEAN CORPUSCULAR HGB CONC 31.8 g/dl (32.0-36.5); MEAN CORPUSCULAR VOLUME 90.8 fl (80.0-96.0); MONO # 0.4 10^3/uL (0.0-0.8); MONO % 4.2 % (0.0-5.0); NEUTROPHILS % 93.1 % (36.0-66.0); PLATELET COUNT, AUTOMATED 202 10^3/uL (150-450); RED BLOOD COUNT 4.15 10^6/uL (4.00-5.40); WHITE BLOOD COUNT 9.7 10^3/uL (4.0-10.0)
[2018-10-08] MEDS ORDERED: ONDANSETRON 4MG/2ML VIAL (J2405) IV ONE (12:15)
[2018-10-08 12:32] LABS: LYMPH # 0.2 10^3/uL (1.5-4.5)
[2018-10-08 12:48] LABS: ALBUMIN 4.1 GM/DL (3.2-5.2); BILIRUBIN,DIRECT 0.2 MG/DL (0.0-0.2); BILIRUBIN,TOTAL 0.5 MG/DL (0.2-1.0); CALCIUM LEVEL 9.4 MG/DL (8.8-10.2); CREATININE FOR GFR 1.44 MG/DL (0.55-1.30); GLOMERULAR FILTRATION RATE 36.9 (>32); POTASSIUM SERUM 4.1 MEQ/L (3.5-5.1); TOTAL PROTEIN 7.7 GM/DL (6.4-8.2)
[2018-10-08] MEDS ORDERED: CALC600T2 PO (13:20)
[2018-10-08] MEDS ORDERED: PRESCAP6 PO (13:20)
[2018-10-08] MEDS ORDERED: ACET1TAB55 PO (13:20)
[2018-10-08] MEDS ORDERED: TYLE325T5 PO (13:20)
[2018-10-08] MEDS ORDERED: GABA-843 PO (13:20)
[2018-10-08] MEDS ORDERED: WOMETAB4 PO (13:20)
[2018-10-08] MEDS ORDERED: ASPI81CH48 PO (13:20)
[2018-10-08] MEDS ORDERED: ONDANSETRON 4MG/2ML VIAL (J2405) IV PRN (18:00)
--- NOTE | 2018-10-08 18:07 | ECGEPIP ---
Stationary ECG Study [facility] - ED Test Date: 2018-10-08 Pat Name: JASEN CLEMONS Department: Room: - Gender: F Button Reclaimer: alysia : 1935 Requested By: Karime Davies Order Number: [id number] Reading MD: Karime Davies Measurements Intervals [place] Rate: 107 P: 35 WA: 173 QRS: -68 QRSD: 65 T: 34 QT: 330 QTc: 441 Interpretive Statements SINUS TACHYCARDIA PATTERN CONSISTENT WITH PULMONARY DISEASE LEFT ANTERIOR FASCICULAR BLOCK INFERIOR MYOCARDIAL INFARCTION, PROBABLY OLD INCREASED RATE 05/16/18 Electronically Signed On 10-08-2018 18:06:49 EDT by Karime Davies
[2018-10-08] MEDS: LR 1,000 ML IV SCH (18:30)
[2018-10-08 20:05] VITALS: BP 158/73
[2018-10-08] MEDS: GABAPENTIN 300 MG CAP PO SCH (20:34)
[2018-10-08] MEDS: clonazePAM 0.5 MG TAB PO SCH (20:34)
[2018-10-08] MEDS: SERTRALINE HCL 25 MG TABLET PO SCH (20:34)
[2018-10-08] MEDS: ACETAMINOPHEN 325 MG TAB PO SCH (22:26)
[2018-10-09] MEDS: LR 1,000 ML IV SCH ×2 (01:42→08:54)
[2018-10-09 06:00] VITALS: BP 131/59
[2018-10-09] MEDS: ACETAMINOPHEN 325 MG TAB PO PRN (06:17)
[2018-10-09 06:21] LABS: HEMATOCRIT 33.3 % (36.0-47.0); HEMOGLOBIN 10.1 g/dl (12.0-15.5); MEAN CORPUSCULAR HEMOGLOBIN 28.4 pg (27.0-33.0); MEAN CORPUSCULAR HGB CONC 30.3 g/dl (32.0-36.5); MEAN CORPUSCULAR VOLUME 93.5 fl (80.0-96.0); PLATELET COUNT, AUTOMATED 159 10^3/uL (150-450); RED BLOOD COUNT 3.56 10^6/uL (4.00-5.40); WHITE BLOOD COUNT 5.2 10^3/uL (4.0-10.0)
[2018-10-09 06:45] LABS: BILIRUBIN,TOTAL 0.3 MG/DL (0.2-1.0); CALCIUM LEVEL 8.5 MG/DL (8.8-10.2); CREATININE FOR GFR 1.23 MG/DL (0.55-1.30); GLOMERULAR FILTRATION RATE 44.3 (>32); POTASSIUM SERUM 3.8 MEQ/L (3.5-5.1); TOTAL PROTEIN 6.4 GM/DL (6.4-8.2)
[2018-10-09] MEDS: clonazePAM 0.5 MG TAB PO SCH ×3 (08:53→21:22)
[2018-10-09] MEDS: ATORVASTATIN 10 MG TAB PO SCH (08:53)
[2018-10-09] MEDS: SERTRALINE HCL 25 MG TABLET PO SCH ×3 (08:53→21:22)
[2018-10-09] MEDS: PANTOPRAZOLE 40MG INJ (PROTONIX) (C9113) IV SCH (08:54)
[2018-10-09] MEDS: ENOXAPARIN 30 MG/0.3 ML SYR (J1650) SC SCH (08:55)
[2018-10-09] MEDS ORDERED: PROPRANOLOL 60 MG LA CAP PO SCH (09:00)
--- NOTE | 2018-10-09 10:22 | IPNPDOC ---
Subjective Date Seen The patient was seen on 10/09/18. Subjective Chief Complaint/HPI Pts dgt at bedside. Pt tolerating clears, sleeping now. She has no had any loose stools since being in the ED. General: Reports: ROS Unobtainable Objective Physical Examination General Exam: Positive: No Acute Distress (asleep) Chest Exam: Positive: Clear to auscultation, Normal air movement Heart Exam: Positive: Rate Normal, Normal S1, Normal S2 Abdomen Exam: Positive: Normal bowel sounds, Soft Extremity Exam: Negative: Edema Assessment /Plan Problems (1) Norovirus Status: Acute Response to Treatment: Stable, Improving Discussed With: Nurse, Patient Problem Specific Plan: Monitor Clinically, Repeat Labs Problem Text: Will advance diet as tolerated, d/c IVF if tolerate diet. Anticipate d/c back to [facility] tomorrow. (2) Dehydration Status: Acute Response to Treatment: Stable, Improving Problem Specific Plan: Monitor Clinically, Repeat Labs Problem Text: Cont IVF, d/c if cont to tolerate diet with advancing. Plan/VTE VTE Prophylaxis Ordered?: Yes VS, I&O, 24H, [facility] Vital Signs/I&O Vital Signs Date Time Temp Pulse Resp B/P (MAP) Pulse Ox O2 Delivery O2 Flow Rate FiO2 10/09/18 06:00 97.8 76 18 131/59 (83) 94 10/08/18 19:46 Room Air I&O- Last 24 Hours up to 6 AM 10/09/18 06:00 Intake Total 2730 ml Output Total 300 ml Balance 2430 ml Laboratory Data 24H LABS Laboratory Tests 2 10/08/18 11:55: Immature Granulocyte % (Auto) 0.3, White Blood Count 9.7, Red Blood Count 4.15, Hemoglobin 12.0, Hematocrit 37.7, Mean Corpuscular Volume 90.8, Mean Corpuscular Hemoglobin 28.9, Mean Corpuscular Hemoglobin Concent 31.8L, Red Cell Distribution Width 14.4, Platelet Count 202, Neutrophils (%) (Auto) 93.1H, Lymphocytes (%) (Auto) 2.2L, Monocytes (%) (Auto) 4.2, Eosinophils (%) (Auto) 0.1, Basophils (%) (Auto) 0.1, Neutrophils # (Auto) 9.0H, Lymphocytes # (Auto) 0.2L, Monocytes # (Auto) 0.4, Eosinophils # (Auto) 0.0, Basophils # (Auto) 0.0, Nucleated Red Blood Cells % (auto) 0.0, Anion Gap 9, Glomerular Filtration Rate 36.9, Calcium Level 9.4, Aspartate Amino Transf (AST/SGOT) 25, Alanine Aminotr ansferase (ALT/SGPT) 21, Alkaline Phosphatase 75, Total Bilirubin 0.5, Direct Bilirubin 0.2, Total Protein 7.7, Albumin 4.1, Albumin/Globulin Ratio 1.14, Lipase 116 10/09/18 06:01: Nucleated Red Blood Cells % (auto) 0.0, Anion Gap 5L, Glomerular Filtration Rate 44.3, Calcium Level 8.5L, Aspartate Amino Transf (AST/SGOT) 23, Alanine Aminotransferase (ALT/SGPT) 17, Alkaline Phosphatase 58, Total Bilirubin 0.3, Total Protein 6.4, Albumin 3.0#L, Albumin/Globulin Ratio 0.88L, Blood Urea Nitrogen 20H, Creatinine 1.23, Sodium Level 143, Potassium Level 3.8, Chloride Level 109H, Carbon Dioxide Level 29 CBC/BMP Laboratory Tests 10/08/18 11:55 Red Blood Count 4.15, Mean Corpuscular Volume 90.8, Mean Corpuscular Hemoglobin 28.9, Mean Corpuscular Hemoglobin Concent 31.8 L, Red Cell Distribution Width 14.4, Neutrophils (%) (Auto) 93.1 H, Lymphocytes (%) (Auto) 2.2 L, Monocytes (%) (Auto) 4.2, Eosinophils (%) (Auto) 0.1, Basophils (%) (Auto) 0.1, Neutrophils # (Auto) 9.0 H, Lymphocytes # (Auto) 0.2 L, Monocytes # (Auto) 0.4, Eosinophils # (Auto) 0.0, Basophils # (Auto) 0.0 10/09/18 06:01 Red Blood Count 3.56 L, Mean Corpuscular Volume 93.5, Mean Corpuscular Hemoglobin 28.4, Mean Corpuscular Hemoglobin Concent 30.3 L, Red Cell Distr ibution Width 14.6 H, Calcium Level 8.5 L, Aspartate Amino Transf (AST/SGOT) 23, Alanine Aminotransferase (ALT/SGPT) 17, Alkaline Phosphatase 58, Total Bilirubin 0.3, Total Protein 6.4, Albumin 3.0 #L Microbiology Microbiology 10/08/18 Gastrointestinal Tract Panel (PCR) - Final, Complete Norovirus CHENG DIAS PA-C Oct 09, 2018 10:22
[2018-10-09 14:00] VITALS: BP 128/61
[2018-10-09] MEDS ORDERED: FUROSEMIDE 20 MG TAB PO ONE (18:45)
[2018-10-09] MEDS ORDERED: METOPROLOL TART 25 MG TABLET PO ONE (18:45)
[2018-10-09] MEDS: GABAPENTIN 300 MG CAP PO SCH (21:23)
[2018-10-09] MEDS: ACETAMINOPHEN 325 MG TAB PO SCH (21:23)
[2018-10-10 02:00] VITALS: BP 130/63
[2018-10-10 06:00] VITALS: BP 159/89
[2018-10-10] MEDS: ENOXAPARIN 30 MG/0.3 ML SYR (J1650) SC SCH (09:32)
[2018-10-10] MEDS: ACETAMINOPHEN 325 MG TAB PO PRN (09:34)
[2018-10-10] MEDS: ATORVASTATIN 10 MG TAB PO SCH (09:34)
[2018-10-10] MEDS: SERTRALINE HCL 25 MG TABLET PO SCH (09:34)
[2018-10-10] MEDS: PANTOPRAZOLE 40MG INJ (PROTONIX) (C9113) IV SCH (09:34)
[2018-10-10] MEDS: clonazePAM 0.5 MG TAB PO SCH (09:34)
--- NOTE | 2018-10-10 09:47 | DSES ---
DATE OF ADMISSION: 10/08/2018 DATE OF DISCHARGE: 10/10/18 PRIMARY CARE PROVIDER: Jocelyn Sanchez PA-C HISTORY: This is an 83-year-old female patient a resident of [facility] who presented to [facility] emergency room after suffering from loose stools. She was admitted to the hospital for norovirus with dehydration. During her hospitalization, she has remained medically stable. Her diarrhea has resolved. She is tolerating a regular diet. Her IV fluids have been discontinued. She has been seen by physical therapy who feels as though she safe to return to her previous living situation. DISCHARGE DIAGNOSES: 1. Norovirus. 2. Dehydration. DISCHARGE MEDICATIONS: - acetaminophen 325 mg before bed. - acetaminophen 325 mg every 4 hours as needed for pain - aspirin 81 mg daily - atorvastatin 10 mg daily - calcium 600 mg, vitamin D 200, one tablet twice a day. - clonazepam 0.5 mg by mouth three times a day - folic acid 1 mg by mouth daily - furosemide 40 mg daily - gabapentin 300 mg by mouth nightly - meclizine 25 mg by mouth three times a day as needed for dizziness. - metaxalone 400 mg by mouth three times a day - multivitamin one tablet daily - Protonix 40 mg daily - artifical tears, one drop each eye every 4 hours as needed for dry eyes. - Pressor Vision two capsules by mouth daily. - Rivastigmine 13.3 mg topically daily at night. - sertraline 25 mg by mouth three times a day - tramadol 50 mg by mouth daily as needed for pain. DISCHARGE PLAN: Followup as previously scheduled with her primary care provider. Her activity should be as tolerated. Her diet should be regular. MTDD
== END 2018-10-10 12:50 | DRG 392 ==
LOC: EDBD 11:37 → M ED 11:37 → M ED INP 17:42 → M MS5PR 20:00
PROVIDERS: ADMIT Family Medicine; ATTEND Family Medicine
DX: A08.11 Acute gastroenteropathy due to Norwalk agent (principal); E86.0 Dehydration; Z79.899 Other long term (current) drug therapy; Z79.82 Long term (current) use of aspirin; E11.9 Type 2 diabetes mellitus without complications; I10 Essential (primary) hypertension; E66.01 Morbid (severe) obesity due to excess calories; F03.90 Unspecified dementia, unspecified severity, without behavioral disturbance, psychotic disturbance, mood disturbance, and anxiety; K21.9 Gastro-esophageal reflux disease without esophagitis; F41.9 Anxiety disorder, unspecified; E78.5 Hyperlipidemia, unspecified; M06.9 Rheumatoid arthritis, unspecified; E55.9 Vitamin D deficiency, unspecified; E03.9 Hypothyroidism, unspecified

== ENCOUNTER → 2019-02-07 | Outpatient (CLI) | payer MEDICARE, BC, OTHER, MEDICAID ==
[~2019-02-07] MED LIST changes: +ACET-907 PO; +ACET-908 PO; +ACET1TAB55 PO; -ARTI99.0 OU; +ARTIDRO2 OU; +ASPI1CHW3 PO; +ASPI81CH48 PO; +CALC-239 PO; +CALC600T2 PO; +CLON0.5T17 PO; +CLON0.5T2 PO; -CLON0.5T8 PO; +GABA-843 PO; +LASI40TA9 PO; -MECL-68 PO; +MECL-86 PO; +MECL1TAB31 PO; +MILKSUS3 PO; +MULTCAP PO; +OCUVTAB4 PO; +PERCOCET PO; +PRESCAP6 PO; +PROTPAK PO; +SERT-138 PO; +TYLE325T5 PO; +WOMETAB4 PO; +[UNRECOGNIZED DRUG - CODE] TD
--- NOTE | 2019-02-12 18:25 | SLEEP ---
DATE OF PROCEDURE: 02/07/2019 REFERRING PHYSICIAN: Dr. Bradford INTERPRETATION: Overnight polysomnography was performed for evaluation of suspected obstructive sleep apnea syndrome. A total of 8 hours and 23 minutes of data was reviewed with total sleep time 419.5 minutes with reduced sleep efficiency. No stage N3 sleep was recorded. EEG remained normal throughout. EKG revealed frequent premature ventricular contractions (PVCs) and premature atrial contractions (PACs). Mean heart rate during sleep was 60 beats per minute. Severe snoring was observed. Respiratory disturbance index was 26 per hour. The mean oxygen saturation during the study was 89% with minimum oxygen saturation 80% during respiratory events. Respiratory effort related arousal index was 16.4 per hour, but there were no significant periodic limb movements of sleep. CONCLUSION: Moderately severe obstructive sleep apnea syndrome. RECOMMENDATIONS: Overnight polysomnography for titration of positive airway pressure is recommended. Exercise caution while operating motor vehicles and heavy machinery. Avoid sedatives and alcohol intake.
== END ==
LOC: M SLEEP 19:09
PROVIDERS: ATTEND Psychiatry & Neurology Neurology
DX: G47.30 Sleep apnea, unspecified (principal)

== ENCOUNTER → 2019-03-20 | Outpatient (CLI) | payer MEDICARE, BC, OTHER, MEDICAID ==
--- NOTE | 2019-04-09 09:19 | SLEEP ---
DATE OF STUDY: 03/20/2019 REFERRING PHYSICIAN: Dr. Wes Bradford INTERPRETATION: Overnight polysomnography was performed for titration of positive airway pressure for obstructive sleep apnea syndrome. A total 7 hours and 34 minutes of data was reviewed with excellent sleep efficiency and short sleep onset latency. Electroencephalogram (EEG) remained normal throughout. Suppression of stage N3 sleep was noted and capital rapid eye movement (REM) sleep was decreased. Respiratory disturbance index was 1.9 per hour and the mean oxygen saturation was 90% throughout this study. Before the study, the patient was fit with a ResMed Mirage standard size nasal mask and C-PAP titration was initiated at 4 cm of water pressure and titrated to 6 cm of water pressure which was sufficient for the patient's obstructive sleep apnea syndrome. There were no significant respiratory effort related arousals, respiratory events or periodic limb movements of sleep during the study. Snoring resolved. CONCLUSIONS: 1. Obstructive sleep apnea syndrome. 2. Successful trial of C-PAP at 6 cm of water pressure with suggested mask. RECOMMENDATION: Nightly use of C-PAP at 6 cm of water pressure with suggested mask.
== END ==
LOC: M SLEEP 19:18
PROVIDERS: ATTEND Psychiatry & Neurology Neurology
DX: G47.33 Obstructive sleep apnea (adult) (pediatric) (principal)

== ENCOUNTER 2019-03-26 22:38 | Emergency (ER) | payer MEDICARE, BC, OTHER, MEDICAID ==
[~2019-03-26] VITALS: Ht 157.5 cm; Wt 81.8 kg
[~2019-03-26 22:38] MED LIST changes: -ACET-907 PO; -ACET-908 PO; -ASPI1CHW3 PO; -CALC-239 PO; -CLON0.5T17 PO; -CLON0.5T2 PO; +CLON0.5T8 PO; -LASI40TA9 PO; +MECL-68 PO; -MECL-86 PO; -MECL1TAB31 PO; -MILKSUS3 PO; -MULTCAP PO; -OCUVTAB4 PO; -PERCOCET PO; -PROTPAK PO; -SERT-138 PO; -[UNRECOGNIZED DRUG - CODE] TD
[2019-03-27 00:19] LABS: BASO % 0.6 % (0.0-1.0); EOS # 0.1 10^3/uL (0.0-0.5); EOS % 2.1 % (0.0-3.0); HEMATOCRIT 33.5 % (36.0-47.0); HEMOGLOBIN 10.6 g/dl (12.0-15.5); LYMPH # 1.2 10^3/uL (1.5-5.0); LYMPH % 18.6 % (24.0-44.0); MEAN CORPUSCULAR HEMOGLOBIN 29.1 pg (27.0-33.0); MEAN CORPUSCULAR HGB CONC 31.6 g/dl (32.0-36.5); MONO # 0.6 10^3/uL (0.0-0.8); MONO % 10.3 % (0.0-5.0); NEUTROPHILS # 4.2 10^3/uL (1.5-8.5); NEUTROPHILS % 67.6 % (36.0-66.0); PLATELET COUNT, AUTOMATED 199 10^3/uL (150-450); RED BLOOD COUNT 3.64 10^6/uL (4.00-5.40); WHITE BLOOD COUNT 6.2 10^3/uL (4.0-10.0)
[2019-03-27 00:22] LABS: INR 1.1; PARTIAL THROMBOPLASTIN TIME 24.7 SECONDS (25.0-38.4); PROTHROMBIN TIME 13.9 SECONDS (11.8-14.0)
--- NOTE | 2019-03-27 00:36 | REPVR ---
PROCEDURE INFORMATION: Exam: CT Head Without Contrast Exam date and time: 03/26/2019 11:24 PM Clinical history: 83 years old, female; Injury or trauma; Fall; Initial encounter; Concussion / head injury; Additional info: Syncope TECHNIQUE: Imaging protocol: Computed tomography of the head without contrast. Axial, coronal and sagittal reformatted images were created and reviewed. Radiation optimization: All CT scans at this facility use at least one of these dose optimization techniques: automated exposure control; mA and/or kV adjustment per patient size (includes targeted exams where dose is matched to clinical indication); or iterative reconstruction. COMPARISON: CT Head without contrast 04/14/2018 11:16 AM FINDINGS: Brain: Patchy areas of hypoattenuation in the periventricular and subcortical white matter, consistent with chronic small vessel ischemic disease. No CT evidence of acute intracranial hemorrhage or acute territorial infarction. No significant mass effect or midline shift. Basal cisterns patent. Ventricles: Prominence of the cortical sulci, cisterns and ventricular system, consistent with cerebral and cerebellar volume loss. Bones/joints: No acute osseous abnormality. Sinuses: Minimal ethmoid mucosal thickening. Mastoid air cells: Minimal opacification of the right mastoid air cells. Soft tissues: Grossly unremarkable. Vasculature: Calcific atherosclerotic disease in the cavernous internal carotid arteries, as well as the vertebro-basilar system. IMPRESSION: 1. No CT evidence of acute intracranial pathology. 2. Additional findings, as above. Electronically signed by: Arnav Golden On 03/27/2019 00:36:37 AM
[2019-03-27 00:40] LABS: BLOOD UREA NITROGEN 36 MG/DL (7-18); CALCIUM LEVEL 8.9 MG/DL (8.8-10.2); CARBON DIOXIDE LEVEL 27 MEQ/L (21-32); CHLORIDE LEVEL 104 MEQ/L (98-107); CK-MB VALUE MASS 4.3 NG/ML (<3.6); CPK CREATINE PHOSPHOKINASE 207 U/L (26-192); CREATININE FOR GFR 1.62 MG/DL (0.55-1.30); GLOMERULAR FILTRATION RATE 32.2 (>32); GLUCOSE, FASTING 118 MG/DL (70-100); MB/CK RELATIVE INDEX 2.08 (< OR =4); SODIUM LEVEL 141 MEQ/L (136-145); TROPONIN I < 0.02 NG/ML (< 0.10)
--- NOTE | 2019-03-27 00:44 | REPVR ---
PROCEDURE INFORMATION: Exam: CT Cervical Spine Without Contrast Exam date and time: 03/26/2019 11:24 PM Clinical history: 83 years old, female; Injury or trauma; Fall; Initial encounter; Concussion /head injury; Additional info: Syncope TECHNIQUE: Imaging protocol: Computed tomography images of the cervical spine without contrast. Axial, coronal and sagittal reformatted images were created and reviewed. Radiation optimization: All CT scans at this facility use at least one of these dose optimization techniques: automated exposure control; mA and/or kV adjustment per patient size (includes targeted exams where dose is matched to clinical indication); or iterative reconstruction. COMPARISON: CT Spine,cervical w/o contrast 03/02/2017 5:40 PM FINDINGS: Vertebrae: Osteopenia. Exaggeration of the normal cervical lordosis. Mild retrolisthesis of C5 on C6 and anterolisthesis of C7 on T1. Alignment otherwise anatomic. Dextroscoliosis. No CT evidence of acute fracture, dislocation or subluxation. Vertebral body heights maintained. Discs/Spinal canal/Neural foramina: Multilevel degenerative changes, characterized by disc space narrowing, osteophytosis and uncovertebral and facet joint hypertrophy. Multilevel spinal canal and neural foraminal narrowing. Soft tissues: Grossly unremarkable. Lungs: Grossly unremarkable. IMPRESSION: 1. No CT evidence of acute cervical spine traumatic injury. 2. Additional findings, as above. Electronically signed by: Arnav Golden On 03/27/2019 00:44:02 AM
[2019-03-27 02:30] VITALS: BP 148/68
--- NOTE | 2019-03-27 07:54 | REP ---
Portable chest, 12:00 a.m., single AP view with the patient semi upright: Comparison is 05/16/2018. The lung baum are clear. The cardiac size is normal. The valerio, mediastinum, and skeletal structures are unremarkable. Impression: Negative portable chest. Electronically Signed by Grupo Cline MD 03/27/2019 07:45 A
--- NOTE | 2019-03-27 17:39 | ECGEPIP ---
[facility] - ED Test Date: 2019-03-26 Pat Name: JASEN CLEMONS Department: Room: - Gender: Female Research Intern: myra : 1935 Requested By: MINDY Marr Order Number: [id number] Reading MD: Karime Davies Measurements Intervals [place] Rate: 74 P: 22 MD: 183 QRS: -43 QRSD: 76 T: 29 QT: 387 QTc: 432 Interpretive Statements SINUS RHYTHM WITH SINUS ARRHYTHMIA MARKED LEFT AXIS DEVIATION LOW QRS VOLTAGE IN PRECORDIAL LEADS POSSIBLE ANTERIOR MYOCARDIAL INFARCTION, PROBABLY OLD LAFB DECREASED RATE 10/08/18 Electronically Signed on 03-27-2019 17:39:13 EDT by Karime Davies
== END 2019-03-27 03:28 | disposition home or self-care (01) ==
LOC: M ED 22:38
DX: F03.90 Unspecified dementia, unspecified severity, without behavioral disturbance, psychotic disturbance, mood disturbance, and anxiety (principal); W19.XXXA Unspecified fall, initial encounter; Y92.129 Unspecified place in nursing home as the place of occurrence of the external cause; Z88.2 Allergy status to sulfonamides; Z91.018 Allergy to other foods; Z79.899 Other long term (current) drug therapy

== ENCOUNTER → 2019-04-12 | Outpatient (CLI) | payer MEDICARE, BC, OTHER, MEDICAID ==
--- NOTE | 2019-04-12 17:03 | REP ---
Lumbar spine five views: There are no comparisons. There is grade 1 compression deformity of the L1 vertebral body. No retropulsed fragments are identified. There is degenerative disc disease throughout the lumbar spine. Vertebral body heights are otherwise normal. There is no spondylolysis. There is grade 1 anterolisthesis of the L4 vertebral body, likely degenerative. There is facet osteoarthritis. The sacroiliac articulations are unremarkable. Impression: Grade 1 L1 vertebral body compression without retropulsed fragments. Degenerative disc disease throughout the lumbar spine. Degenerative grade 1 L4 anterolisthesis. Facet osteoarthritis. Electronically Signed by Grupo Cline MD 04/12/2019 04:54 P
--- NOTE | 2019-04-12 17:05 | REP ---
AP pelvis: Mineralization is normal. The sacroiliac articulations are unremarkable. There is bilateral hip osteoarthritis. There is no fracture or dislocation. Right hip two views: There is osteoarthritis. Mineralization is normal. There are no calcifications. There is no femoral head deformity. Left hip two views: There is osteoarthritis, more advanced than on the right. There is no fracture or dislocation. No femoral head deformity. Mineralization is normal. Electronically Signed by Grupo Cline MD 04/12/2019 04:57 P
== END ==
LOC: M RAD 15:40
PROVIDERS: ATTEND Family Medicine
DX: M16.0 Bilateral primary osteoarthritis of hip (principal); M51.36 Other intervertebral disc degeneration, lumbar region; M25.551 Pain in right hip; M25.552 Pain in left hip; R29.898 Other symptoms and signs involving the musculoskeletal system

== ENCOUNTER → 2019-04-12 | Outpatient (REF) | payer MEDICARE, OTHER, MEDICAID ==
[~2019-04-12] MED LIST changes: +ACET-907 PO; +ACET-908 PO; +ASPI81CH44 PO; +CALC-239 PO; +LASI40TA9 PO; +MULTCAP PO; +OCUVTAB4 PO; +PERCOCET PO; +PROTPAK PO; +SERT-138 PO; +[UNRECOGNIZED DRUG - CODE] TD
[2019-04-12 17:31] LABS: BASO # 0.1 10^3/uL (0.0-0.2); BASO % 0.9 % (0.0-1.0); EOS # 0.1 10^3/uL (0.0-0.5); EOS % 1.6 % (0.0-3.0); HEMATOCRIT 34.4 % (36.0-47.0); HEMOGLOBIN 10.7 g/dl (12.0-15.5); LYMPH # 0.9 10^3/uL (1.5-5.0); LYMPH % 13.6 % (24.0-44.0); MEAN CORPUSCULAR HEMOGLOBIN 28.5 pg (27.0-33.0); MEAN CORPUSCULAR HGB CONC 31.1 g/dl (32.0-36.5); MEAN CORPUSCULAR VOLUME 91.5 fl (80.0-96.0); MONO # 0.7 10^3/uL (0.0-0.8); MONO % 9.6 % (0.0-5.0); NEUTROPHILS % 73.7 % (36.0-66.0); PLATELET COUNT, AUTOMATED 283 10^3/uL (150-450); RED BLOOD COUNT 3.76 10^6/uL (4.00-5.40); WHITE BLOOD COUNT 6.8 10^3/uL (4.0-10.0)
[2019-04-12 17:41] LABS: C REACTIVE PROTEIN QUANTITATIV 3.92 MG/DL (0.00-0.30); CALCIUM LEVEL 9.1 MG/DL (8.8-10.2); CREATININE FOR GFR 1.17 MG/DL (0.55-1.30); GLOMERULAR FILTRATION RATE 46.8 (>32); MAGNESIUM LEVEL 2.2 MG/DL (1.8-2.4); POTASSIUM SERUM 4.1 MEQ/L (3.5-5.1)
[2019-04-12 18:11] LABS: APPEARANCE, URINE CLEAR (CLEAR); BACTERIA, URINE AUTO NEGATIVE (NEGATIVE); BILIRUBIN, URINE AUTO NEGATIVE (NEGATIVE); BLOOD, URINE BLOOD NEGATIVE (NEGATIVE); COLOR, URINE STRAW (YELLOW); GLUCOSE, URINE (UA) AUTO NEGATIVE (NEGATIVE); KETONE, URINE AUTO NEGATIVE (NEGATIVE); LEUKOCYTE ESTERASE, URINE AUTO NEGATIVE (NEGATIVE); NITRITE, URINE AUTO NEGATIVE (NEGATIVE); PROTEIN, URINE AUTO NEGATIVE (NEGATIVE); RBC, URINE AUTO 0 /HPF (0-3); SPECIFIC GRAVITY URINE AUTO 1.006 (1.002-1.035); SQUAMOUS EPITHELIAL CELL UR AU 0 /HPF (0-6); UROBILINOGEN, URINE AUTO 0.2 mg/dL (0.0-2.0); WBC, URINE AUTO 0 /HPF (0-3)
[2019-04-12 18:34] LABS: ERYTHROCYTE SEDIMENTATION RATE 63 mm/hr (0-30)
== END ==
LOC: M SFHCPLAZ 14:53
PROVIDERS: ATTEND Family Medicine
DX: M79.10 Myalgia, unspecified site (principal); R29.6 Repeated falls; R29.898 Other symptoms and signs involving the musculoskeletal system; N39.0 Urinary tract infection, site not specified; E11.9 Type 2 diabetes mellitus without complications; Z23 Encounter for immunization
CPT/HCPCS: 36415; 80048; 81001; 82550; 82607; 83735; 85025; 85652; 86140; 90471; 90682; G0463

== ENCOUNTER 2019-04-16 17:03 | Inpatient (IN) | payer MEDICARE, BC, OTHER, MEDICAID ==
[~2019-04-16] VITALS: Ht 160 cm; Wt 78.4 kg
[~2019-04-16 17:03] MED LIST changes: -ACET-907 PO; -ACET-908 PO; -ASPI81CH44 PO; -CALC-239 PO; -LASI40TA9 PO; -MULTCAP PO; -OCUVTAB4 PO; -PERCOCET PO; -PROTPAK PO; -SERT-138 PO; -[UNRECOGNIZED DRUG - CODE] TD
[2019-04-16] MEDS ORDERED: CALC-239 PO (18:27)
[2019-04-16] MEDS ORDERED: META400T PO (18:27)
[2019-04-16] MEDS ORDERED: MULTCAP PO (18:27)
[2019-04-16] MEDS ORDERED: SERT-138 PO (18:27)
[2019-04-16] MEDS ORDERED: ACET-907 PO (18:27)
[2019-04-16] MEDS ORDERED: LASI40TA9 PO (18:27)
[2019-04-16] MEDS ORDERED: ATOR1TAB19 PO (18:27)
[2019-04-16] MEDS ORDERED: PROTPAK PO (18:27)
[2019-04-16] MEDS ORDERED: TRAM50TA2 PO (18:27)
[2019-04-16] MEDS ORDERED: ACET-908 PO (18:27)
[2019-04-16] MEDS ORDERED: GABA-843 PO (18:27)
[2019-04-16] MEDS ORDERED: CLON0.5T8 PO (18:27)
[2019-04-16] MEDS ORDERED: MECL-68 PO (18:27)
[2019-04-16] MEDS ORDERED: ASPI81CH44 PO (18:27)
[2019-04-16] MEDS ORDERED: [UNRECOGNIZED DRUG - CODE] TD (18:27)
[2019-04-16] MEDS ORDERED: FOLI1TAB11 PO (18:30)
[2019-04-16] MEDS ORDERED: ARTIDRO2 OU (18:34)
[2019-04-16] MEDS ORDERED: OCUVTAB4 PO (18:34)
[2019-04-16] MEDS ORDERED: traMADol 50 MG TAB PO ONE (19:45)
[2019-04-16 19:57] LABS: BASO # 0.1 10^3/uL (0.0-0.2); BASO % 0.9 % (0.0-1.0); EOS # 0.2 10^3/uL (0.0-0.5); HEMATOCRIT 32.9 % (36.0-47.0); HEMOGLOBIN 10.2 g/dl (12.0-15.5); LYMPH # 1.1 10^3/uL (1.5-5.0); LYMPH % 20.1 % (24.0-44.0); MEAN CORPUSCULAR HEMOGLOBIN 28.2 pg (27.0-33.0); MEAN CORPUSCULAR VOLUME 90.9 fl (80.0-96.0); MONO # 0.5 10^3/uL (0.0-0.8); MONO % 9.1 % (0.0-5.0); NEUTROPHILS # 3.5 10^3/uL (1.5-8.5); NEUTROPHILS % 66.5 % (36.0-66.0); PLATELET COUNT, AUTOMATED 290 10^3/uL (150-450); RED BLOOD COUNT 3.62 10^6/uL (4.00-5.40); WHITE BLOOD COUNT 5.3 10^3/uL (4.0-10.0)
[2019-04-16 20:03] LABS: CALCIUM LEVEL 8.9 MG/DL (8.8-10.2); CREATININE FOR GFR 1.1 MG/DL (0.55-1.30); GLOMERULAR FILTRATION RATE 50.3 (>32); POTASSIUM SERUM 4.1 MEQ/L (3.5-5.1)
[2019-04-16] MEDS ORDERED: MAALOX 30 ML SUSP *UDC PO PRN (21:30)
[2019-04-16] MEDS ORDERED: POLYVINYL ALCOHOL OPHTH SOLN 15 ML(LIQUITEARS) OU PRN (21:30)
[2019-04-16] MEDS ORDERED: ACETAMINOPHEN TAB 650MG DOSE (2X325MG) PO PRN (21:30)
[2019-04-16] MEDS ORDERED: MOM 30ML SUSPENSION UDC PO PRN (21:30)
[2019-04-16] MEDS ORDERED: MECLIZINE 25 MG TABLET PO PRN (21:30)
--- NOTE | 2019-04-16 21:40 | HPEPDOC ---
General Date of Admission 04/16/19 Date of Service: Apr 16, 2019 Primary Care Physician: CHENG DIAS PA-C Chief Complaint The patient is a 84-year-old female admitted with a reason for visit of Back Pain. Source: Patient, Family Exam Limitations: No limitations Timing/Duration: Other (since yesterday) Severity: Severe Associated Symptoms: Other (, difficulty ambulation, back pain) Home Medications Scheduled Aspirin (Aspirin) 81 Mg Tab.chew, 81 MG PO DAILY, (Reported) Atorvastatin Calcium (Atorvastatin Calcium) 10 Mg Tablet, 10 MG PO DAILY, (Reported) Calcium Carbonate/Vitamin D3 (Calcium 600-Vit D3 200 Tablet) 1 Each Tablet, 1 TAB PO BID, (Reported) Clonazepam (Clonazepam) 0.5 Mg Tablet, 0.5 MG PO TID, (Reported) Folic Acid (Folic Acid) 1 Mg Tablet, 1 MG PO DAILY, (Reported) Furosemide (Lasix) 40 Mg Tablet, 40 MG PO DAILY, (Reported) Gabapentin (Gabapentin) 300 Mg Capsule, 300 MG PO QHS, (Reported) Metaxalone (Metaxalone) 400 Mg Tablet, 400 MG PO TID, (Reported) Multivitamin (Multivitamins) 1 Each Capsule, 1 CAP PO DAILY, (Reported) Pantoprazole Sodium (Protonix) 40 Mg Granpkt.dr, 40 MG PO DAILY, (Reported) Rivastigmine (Exelon) 13.3 Mg/24 Hr Patch.td24, 13.3 MG TD QHS, (Reported) Sertraline HCl (Sertraline HCl) 100 Mg Tablet, 100 MG PO QHS, (Reported) Vit A/Vit C/Vit E/Zinc/Copper (Preservision Areds Tablet) 1 Each Tablet, 1 TAB PO DAILY, (Reported) Scheduled PRN Acetaminophen (Tylenol) 325 Mg Tablet, 650 MG PO Q4H PRN for PAIN, (Reported) Meclizine HCl (Meclizine HCl) 25 Mg Tablet, 25 MG PO TID PRN for DIZZINESS, (Reported) Polyvinyl Alcohol (Artificial Tears) 15 Ml Drops, 1 DROP OU Q4H PRN for DRY EYES, (Reported) Tramadol HCl (Tramadol HCl) 50 Mg Tablet, 50 MG PO DAILY PRN for PAIN, (Reported) Allergies Coded Allergies: Sulfa (Sulfonamide Antibiotics) (Verified Allergy, Unknown, 10/08/18) Lettuce (Verified Adverse Reaction, Mild, diarrhea, 10/08/18) Past Medical History Medical History Type 2 diabetes mellitus, hyperlipidemia, SLE bladder cancer, dementia Surgical History Appendectomy, hysterectomy, cholecystectomy, oriented, cystectomy Family History Significant Family History: No pertinent family hx Social History * Smoker: Denies Alcohol: Denies Drugs: denies A-FIB/CHADSVASC A-FIB History Current/History of A-Fib/PAF?: No Review of Systems Constitutional: Denies: Chills, Fever, Malaise, Night Sweats, Weakness, Fatigue, Weight Loss, Lethargy, Other Eyes: Denies: Pain, Vision change, Conjunctivae inflammation, Eyelid inflammation, Redness, Other ENT: Denies: Head Aches, Ear Pain, Dysphagia, Sinus Congestion, Post Nasal Drip, Sore Throat, Epistaxis, Other Symptoms Skin: Denies: Rash, Lesions, Jaundice, Bruising, Itching, Dry, Breakdown, Nail Changes, Other Pulmonary: Denies: Dyspnea, Cough, Pleuritic Chest Pain, Other Symptoms Cardiovascular: Denies: Chest Pain, Palpitations, Orthopnea, Paroxysmal Noc. Dyspnea, Edema, Lt Headedness, Other Symptoms Gastrointestinal: Denies: Nausea, Vomiting, Abdominal Pain, Diarrhea, Constip ation, Melena, Hematochezia, Other Symptoms Genitourinary: Denies: Dysuria, Frequency, Incontinence, Hematuria, Retention, Other Symptoms Hematologic: Denies: Bruising, Bleeding Excessively, Petecchia, Purpura, Enlarged Lymph Nodes, Other Hematologic Musculoskeletal: Reports: Back Pain, Other Symptoms Neurological: Denies: Weakness, Numbness, Incoordination, Change in speech, Confusion, Seizures, Other Symptoms Psych: Denies: Mood Normal, Anxiety, Depression, Memory Issues, Thoughts of Self Harm, Anger, Thoughts of Harming Other, Other Psych Physical Examination General Exam: Positive: Alert, Cooperative Eye Exam: Positive: PERRLA, Conjunctiva & lids normal ENT Exam: Positive: Atraumatic, Mucous membr. moist/pink Neck Exam: Positive: Supple Chest Exam: Positive: Clear to auscultation, Normal air movement Heart Exam: Positive: Rate Normal, Normal S1, Normal S2 Abdomen Exam: Positive: Normal bowel sounds, Soft Extremity Exam: Positive: Normal pulses Skin Exam: Positive: Nl turgor and temperature Neuro Exam: Positive: Strength at 5/5 X4 ext, Sensation Intact Psych Exam: Positive: Mental status NL, Mood NL, Oriented x 3 Vital Signs Vital Signs Date Time Temp Pulse Resp B/P (MAP) Pulse Ox O2 Delivery O2 Flow Rate FiO2 04/16/19 20:18 61 16 169/72 (104) 95 Room Air 04/16/19 17:25 98.1 Laboratory Data Labs 24H Laboratory Tests 2 04/16/19 18:14: Immature Granulocyte % (Auto) 0.4, White Blood Count 5.3, Red Blood Count 3.62L, Hemoglobin 10.2L, Hematocrit 32.9L, Mean Corpuscular Volume 90.9, Mean Corpu scular Hemoglobin 28.2, Mean Corpuscular Hemoglobin Concent 31.0L, Red Cell Distribution Width 14.6H, Platelet Count 290, Neutrophils (%) (Auto) 66.5H, Lymphocytes (%) (Auto) 20.1L, Monocytes (%) (Auto) 9.1H, Eosinophils (%) (Auto) 3.0, Basophils (%) (Auto) 0.9, Neutrophils # (Auto) 3.5, Lymphocytes # (Auto) 1.1L, Monocytes # (Auto) 0.5, Eosinophils # (Auto) 0.2, Basophils # (Auto) 0.1, Nucleated Red Blood Cells % (auto) 0.0, Anion Gap 6L, Glomerular Filtration Rate 50.3, Blood Urea Nitrogen 17, Creatinine 1.10, Sodium Level 140, Potassium Level 4.1, Chloride Level 103, Carbon Dioxide Level 31, Calcium Level 8.9 CBC/BMP Laboratory Tests 04/16/19 18:14 Red Blood Count 3.62 L, Mean Corpuscular Volume 90.9, Mean Corpuscular Hemoglobin 28.2, Mean Corpuscular Hemoglobin Concent 31.0 L, Red Cell Distribution Width 14.6 H, Neutrophils (%) (Auto) 66.5 H, Lymphocytes (%) (Auto) 20.1 L, Monocytes (%) (Auto) 9.1 H, Eosinophils (%) (Auto) 3.0, Basophils (%) (Auto) 0.9, Neutrophils # (Auto) 3.5, Lymphocytes # (Auto) 1.1 L, Monocytes # (Auto) 0.5, Eosinophils # (Auto) 0.2, Basophils # (Auto) 0.1, Calcium Level 8.9 Problems (1) Vertebral compression fracture Status: Acute Problem Text: 84 years old white female who resides at [facility] assisted- living facility, but lately she has developed severe back pain and has been unable to take care of for activities of daily living secondary to back pain. She is has difficulty ambulation and was brought in by family for possible admission to higher level of care facility. Patient offers only complains of back pain, no nausea, vomiting, chest pain, shortness of breath, etc. Admit to [facility] floor CT LS spine without contrast Continue all home meds Social work consult for placement in her level of care Discussed with patient and patient's family at the bedside and I agree with the plan DVT prophylaxis with Lovenox Carb consistent diet (2) Diabetes Status: Chronic Problem Text: Diabetes mellitus by history Ingested blood sugar every before meals and at bedtime with coverage (3) Hyperlipidemia Status: Chronic Problem Text: Continue home meds Plan / VTE VTE Prophylaxis Ordered?: Yes VITOR STEWART MD Apr 16, 2019 21:40
[2019-04-16] MEDS ORDERED: GLUCOSE 4 GM CHEW TABLET PO PRN (21:45)
[2019-04-16] MEDS ORDERED: DEXTROSE 50% 50 ML SYRINGE IV PRN (21:45)
[2019-04-16] MEDS ORDERED: GLUCAGON FOR INJ 1 MG VIAL (J1610) SC PRN (21:45)
--- NOTE | 2019-04-16 22:45 | REPVR ---
PROCEDURE INFORMATION: Exam: CT Lumbar Spine Without Contrast Exam date and time: 04/16/2019 9:42 PM Clinical history: 84 years old, female; Low back pain TECHNIQUE: Imaging protocol: Computed tomography images of the lumbar spine without contrast. Radiation optimization: All CT scans at this facility use at least one of these dose optimization techniques: automated exposure control; mA and/or kV adjustment per patient size (includes targeted exams where dose is matched to clinical indication); or iterative reconstruction. COMPARISON: CR Spine. Lumbosacral, complete 04/12/2019 3:57 PM FINDINGS: Vertebrae: Moderate L1 compression fracture, likely chronic. Grade 1 anterolisthesis of L4 on L5. Remainder demonstrate preserved height and AP alignment. Moderate prevertebral osteophytosis. There are bilateral facet joint degenerative changes Discs/Spinal canal/Neural foramina: Central canal stenosis greatest at L4-L5, severe. Soft tissues: Unremarkable. IMPRESSION: 1. Moderate L1 compression fracture is most likely chronic. 2. Central canal stenosis greatest at L4-L5, severe. MRI may be considered. Electronically signed by: Papo Flores On 04/16/2019 22:44:39 PM
[2019-04-16 22:59] VITALS: BP 140/79
[2019-04-17] MEDS ORDERED: PERCOCET 5MG/325MG TAB PO ONE (00:15)
[2019-04-17] MEDS ORDERED: BACLOFEN 10 MG TAB PO ONE (02:45)
[2019-04-17] MEDS ORDERED: MORPHINE 10 MG/ML 1ML VIAL (J2270) IV ONE (05:15)
[2019-04-17 06:00] VITALS: BP 131/79
[2019-04-17] MEDS: HumaLOG INSULIN (NovoLOG) PER UNIT SC SCH ×4 (07:30→21:00)
--- NOTE | 2019-04-17 08:20 | REP ---
Single view chest: 04/17/2019. Indication: Chest pain. Comparison: 02/22/2019. Findings: The lungs are clear. There is no pneumothorax or significant pleural effusion. Atherosclerotic tortuous aorta is redemonstrated. Heart size remains stable and borderline prominent. Impression: No acute cardiopulmonary process. Electronically Signed by Geraldo Nunez DO 04/17/2019 08:11 A
[2019-04-17 08:41] LABS: HEMATOCRIT 33.1 % (36.0-47.0); HEMOGLOBIN 10.5 g/dl (12.0-15.5); MEAN CORPUSCULAR HEMOGLOBIN 28.4 pg (27.0-33.0); MEAN CORPUSCULAR HGB CONC 31.7 g/dl (32.0-36.5); MEAN CORPUSCULAR VOLUME 89.5 fl (80.0-96.0); PLATELET COUNT, AUTOMATED 276 10^3/uL (150-450); WHITE BLOOD COUNT 5.5 10^3/uL (4.0-10.0)
[2019-04-17] MEDS: OCUVITE 1 TAB PO SCH (09:00)
[2019-04-17] MEDS: ASPIRIN 81 MG CHEW TABLET PO SCH (09:00)
[2019-04-17] MEDS: FUROSEMIDE 40 MG TAB PO SCH (09:00)
[2019-04-17] MEDS: clonazePAM 0.5 MG TAB PO SCH ×3 (09:00→21:56)
[2019-04-17] MEDS: DOCUSATE SODIUM 100 MG CAP PO SCH ×2 (09:00→21:56)
[2019-04-17] MEDS: FOLIC ACID 1 MG TAB PO SCH (09:00)
[2019-04-17] MEDS: ATORVASTATIN 10 MG TAB PO SCH (09:01)
[2019-04-17] MEDS: ENOXAPARIN 30 MG/0.3 ML SYR (J1650) SC SCH (09:01)
[2019-04-17] MEDS: PANTOPRAZOLE 40MG TAB (PROTONIX) PO SCH (09:01)
[2019-04-17 09:26] LABS: CALCIUM LEVEL 9.2 MG/DL (8.8-10.2); CHOLESTEROL RISK RATIO 3.288 (<5); CREATININE FOR GFR 1.03 MG/DL (0.55-1.30); GLOMERULAR FILTRATION RATE 54.2 (>32); POTASSIUM SERUM 3.5 MEQ/L (3.5-5.1); THYROID STIMULATING HORMONE 6.85 uIU/ML (0.358-3.740)
[2019-04-17 10:43] LABS: FREE T4 0.97 NG/DL (0.76-1.46)
[2019-04-17] MEDS: traMADol 50 MG TAB PO PRN (12:18)
[2019-04-17 14:00] VITALS: BP 156/88
[2019-04-17] MEDS: PERCOCET 5MG/325MG TAB PO PRN ×2 (15:58→23:29)
--- NOTE | 2019-04-17 18:34 | CR ---
DATE OF CONSULTATION: 04/17/2019 REASON FOR CONSULTATION: Compression fracture of the lumbar spine. HISTORY OF PRESENT ILLNESS: She is an 84-year-old female who complains of back pain, admitted through the emergency room as was transferred from [facility]. She describes the onset of pain and soreness from a fall. She says it was about three weeks ago or so. Going back in the record, you can see that there is a emergency room visit on 03/26/2019 and they did x-rays and CAT scans of her neck and her head. They did not address her lumbar spine according to the patient. She had significant discomfort, pain and soreness in her back, and difficulty to ambulate. She was just using a rolling walker, trying to get to her living room from the bed at the [place] but had persisting troubles with pain and soreness and then had an x-ray done again 04/12/2019 of the lumbar spine and that x-ray showed a compression fracture of L1 and some spondylolisthesis of L4-5 grade 1, quite a bit of degenerative changes in the posterior facet joints. Because of the persistent soreness, she represented to the emergency room again yesterday. A lumbar spine CT scan showed what appears to be again the compression fracture as noted at L1 and the radiologist felt that it looked chronic and not acute. There was still some listhesis noted at L4-5. Because of the pain and soreness and the fracture, she was admitted to the hospital and orthopedics was consulted. She complains of soreness and pain at the base of the lumbar spine ever since her fall. She does not complain of tingling or numbness into her lower extremities, although she says sometimes her feet feel like ice cubes and there is some achiness into both of her buttocks and outside aspects of both of her hips. She has been moving her bowels and has been voiding. No loss of bowel or bladder function has been noted. So I was asked to see her for this issue. Her other medical history is significant for some mild dementia and a history of type 2 diabetes, hypercholesterolemia, lupus, and a history of bladder cancer. PAST SURGICAL HISTORY: Appendectomy, hysterectomy, cholecystectomy, and ovarian cystectomy. Her medications are atorvastatin, clonazepam, folate, furosemide, gabapentin, metaxalone, multivitamin, pantoprazole, rivastigmine, sertraline, and vitamins. ALLERGIES: SULFA and LETTUCE. SOCIAL HISTORY: She does not smoke or drink alcohol excessively. Again, she lives at [facility]. She has a supportive family. REVIEW OF SYSTEMS: Otherwise per the history of present illness. When I examined her, an elderly, pleasant female lying in her bed when I examine her today. Her vital signs show a temperature of 98.3, a pulse of 77, respirations of 19, blood pressure 156/88, pulse oximetry of 94%. HEENT examination is benign. She can elevate her arms up overhead without obvious deformity, pain or soreness to her upper extremities. Lumbar spine examination on logrolling, I could palpate base of the lumbar spine tenderness. She could do a straight leg raise bilaterally. She could flex and extend her hips and I could flex and extend and internally and externally rotate her hips without obvious irritability or pain into her groins. She could flex and extend her knees, dorsiflex and plantar flex her ankles, and sensory testing was intact to light touch and I could palpate pulses. There was no obvious motor weakness noted in her lower extremities. LABORATORY STUDIES: Showed a white blood count of 5.5, hematocrit of 33.1, and platelets of 276. Her chemistries were unremarkable. She had an elevated TSH. Urinalysis on 04/12/2019 was benign. She had remote immunology back in July of 2018 that was positive for an TOVA. IMAGING STUDIES: I reviewed her x-rays of the lumbar spine showing the compression fracture of L1, some listhesis of L4-5. This was confirmed with a CT scan and compared to x-rays of the lumbar spine going back in her record 03/02/2017, I am not seeing a superior end-plate fracture of L1 back two years ago. IMPRESSION: This is an elderly, pleasant female with an acute onset of back pain with what appears to be an acute onset of back pain from a fall with x-rays showing an L1 superior end-plate compression fracture. It was not evident there on x-rays done two years earlier. Associated with her acute lumbar fracture is lower down severe stenosis of L4-5 with some listhesis. I would recommend we obtain a lumbar corset brace and have the therapist try to mobilize her, but we should get an MR scan with stir imaging to understand the acuity of this fracture as whether or not she would be amenable to any other treatment if it is a relatively acute fracture. So we will order an MR with stir images, a brace, and have the therapist work with her. She did mention to me that she is not interested in any surgical intervention at all regarding her back, but she may be a candidate for potential pain service visit and possibly an epidural may relieve some of the symptoms if they are due to the spinal stenosis that may be have been exacerbated from her fall. We will evaluate that after we get the other studies.
[2019-04-17] MEDS: MORPHINE 4 MG/ML 1ML VIAL/SYRINGE (J2270) IV PRN ×2 (18:36→21:57)
--- NOTE | 2019-04-17 19:16 | IPNPDOC ---
Date Seen The patient was seen on 04/17/19. Progress Note SUBJECTIVE: Patient appeared comfortable at rest but reported significant lower back pain with any movement. Afebrile overnight. Stated that she did not sleep well due to pain. IV morphine added in AM. OBJECTIVE PHYSICAL EXAMINATION: VITAL SIGNS: Please see below. General: No acute distress, Alert Eyes: Normal sclera, EOMI, BERNICE HENT: Atraumatic, neck supple, moist mucous membranes Cardiovascular: Normal rate, normal rhythm. No murmurs appreciated. Pulmonary: Clear to auscultation b/l, no wheezing GI: Soft, nontender, nondistended Skin: Warm and dry Neuro: CN grossly intact. No focal deficits. Strengths equal b/l. Psych: oriented x 3 LABORATORY DATA, IMAGING STUDIES, MICROBIOLOGY: Please see below. DVT prophylaxis ordered?: Antoniox ASSESSMENT AND PLAN: 1. L1 compression fracture - s/p Fall several weeks prior. - Ortho consulted. to get MR with stir image to evaluate acuity. - Appreciated assistance. To also get a lumbar corset brace and c/w PT. - Patient does not wish to undergo surgical intervention at this time. - Consider pain management consult for possible epidural if pain is still uncontrolled. 2. Central canal stenosis, worst at L4/L5 - To get MR of spine. Ortho following. - Consider pain management with possible epidural. 3. DM - diabetic diet. - ISS coverage. 4. HLD - c/w statin DISPOSITION: Was at assisted living facility but may need higher level of care. To be determine with CW following PT evaluation. VS, I&O, 24H, Fishbone Vital Signs/I&O Vital Signs Date Time Temp Pulse Resp B/P (MAP) Pulse Ox O2 Delivery O2 Flow Rate FiO2 04/17/19 18:36 17 04/17/19 14:00 98.3 77 156/88 (110) 94 04/16/19 22:55 Room Air I&O- Last 24 Hours up to 6 AM 04/17/19 06:00 Intake Total 250 ml Output Total 300 ml Balance -50 ml Laboratory Data 24H LABS Laboratory Tests 2 04/17/19 07:45: Nucleated Red Blood Cells % (auto) 0.0, Anion Gap 5L, Glomerular Filtration Rate 54.2, Calcium Level 9.2, Triglycerides Level 128, LDL Cholesterol 93, Total Cholesterol 171, Non-HDL Cholesterol (LDL + VLDL) 119, Total HDL Cholesterol 52, Cholesterol/HDL Ratio 3.288, Thyroid Stimulating Hormone (TSH) 6.850H, Free Thyroxine 0.97 04/17/19 11:26: Bedside Glucose (Misc Panel) 122H 04/17/19 16:27: Bedside Glucose (Misc Panel) 82L CBC/BMP Laboratory Tests 04/17/19 07:45 Red Blood Count 3.70 L, Mean Corpuscular Volume 89.5, Mean Corpuscular Hemoglobin 28.4, Mean Corpuscular Hemoglobin Concent 31.7 L, Red Cell Dist ribution Width 14.6 H TYESHA GOMEZ MD Apr 17, 2019 19:16
--- NOTE | 2019-04-17 21:44 | REPVR ---
PROCEDURE INFORMATION: Exam: MR Lumbar Spine Without Contrast. Exam date and time: 04/17/2019 9:00 PM Clinical history: 84 years old, female; Injury or trauma; Fall; Follow-up exam; Fracture, traumatic injury; Not specified; First lumbar vertebra; Injury date: Unknown; Additional info: With stir; Evaluate l1 FX for acuity TECHNIQUE: Imaging protocol: Multiplanar magnetic resonance images of the lumbar spine without intravenous contrast. COMPARISON: CT Spine, lumbar w/o contrast 04/16/2019 9:34 PM FINDINGS: Vertebrae: There is minimal edema signal within the superior and inferior endplates of L1 that are likely associated with degenerative disc disease. The anterior wedge fracture deformity of L1 with approximately 50% loss of vertebral body height appears chronic. There is mild posterior protrusion of the L1 superior endplate resulting in minimal effacement of the anterior thecal sac. No impingement of the lower thoracic spinal cord is present. The conus terminates at the level of the L1 inferior endplate. Spinal cord: The there is an indeterminate low signal focus, measuring 3.5 mm within the anterior epidural space at the level of the T11 mid body on sagittal image 9 of series 301 that abuts and slightly indents the anterior surface of the lower thoracic cord. The lesion is indeterminate and may represent an extruded disc fragment or other extra medullary spinal lesions. Levels: T11-T12: Mild posterior broad-based disc bulge. T12-L1: Mild posterior broad-based disc bulge. L1-L2: Mild posterior broad-based disc bulge and bilateral facet hypertrophy. L2-L3: Posterior broad-based disc protrusion, bilateral facet hypertrophy and ligamentum flavum thickening resulting in mild spinal stenosis. No focal disc protrusion or nerve impingement. L3-L4: Disc space height loss. Minimal anterolisthesis of L3. Posterior broad-based disc protrusion, bilateral facet hypertrophy and ligamentum flavum thickening resulting in moderate spinal stenosis. Mild bilateral lateral recess stenosis. L4-L5: Decreased disc signal. Posterior broad-based disc bulge. Grade 1 anterolisthesis of L4 with disc uncovering. Bilateral facet hypertrophy. No focal disc protrusion seen on sagittal images. Axial scans were not obtained through the L4-L5 disc space level. L5-S1: Mild posterior broad-based disc bulge and bilateral facet hypertrophy. No focal disc protrusion seen on sagittal images. Axial scans were not obtained at the L5-S1 disc space. Sacrum/coccyx: Bone marrow edema signal is present in the region of the visualized portions of the right first and second sacral segments (sagittal STIR images 12 and 13). Consider MRI of the sacrum as clinically indicated. Other bones/joints: No acute fracture. Soft tissues: Unremarkable. IMPRESSION: 1. Chronic anterior wedge fracture deformity of the L1 with approximately 50% loss of anterior vertebral body height and mild retropulsion of the superior endplate resulting in minimal effacement of the anterior thecal sac. 2. Degenerative spondylosis of the lower thoracic and lumbar spine. 3. Indeterminate bone marrow edema signal within the visualized portions of the right first and second sacral segments. This may be secondary to trauma, infection, neoplasm, or edema associated with sacroiliac joint arthritis. Consider MRI of the sacrum as clinically indicated. 4. Tiny indeterminate low signal lesion within the anterior epidural space, abutting and indenting the anterior surface of the lower thoracic spinal cord at the level of the T11 vertebral body. This may represent a tiny extruded disc fragment or other extra medullary spinal lesion. Electronically signed by: Adolfo Barros On 04/17/2019 21:44:37 PM
[2019-04-17] MEDS: GABAPENTIN 300 MG CAP PO SCH (21:56)
[2019-04-17] MEDS: SERTRALINE 100 MG TAB PO SCH (21:56)
[2019-04-17 22:00] VITALS: BP 150/78
[2019-04-17] MEDS: RIVASTIGMINE TD SCH (22:37)
[2019-04-17] MEDS ORDERED: ONDANSETRON 4MG/2ML VIAL (J2405) IV ONE (23:30)
[2019-04-18 06:00] VITALS: BP 145/78
[2019-04-18 06:33] LABS: HEMATOCRIT 33.7 % (36.0-47.0); HEMOGLOBIN 10.6 g/dl (12.0-15.5); MEAN CORPUSCULAR HEMOGLOBIN 27.7 pg (27.0-33.0); MEAN CORPUSCULAR HGB CONC 31.5 g/dl (32.0-36.5); MEAN CORPUSCULAR VOLUME 88.2 fl (80.0-96.0); PLATELET COUNT, AUTOMATED 285 10^3/uL (150-450); RED BLOOD COUNT 3.82 10^6/uL (4.00-5.40); WHITE BLOOD COUNT 6.1 10^3/uL (4.0-10.0)
[2019-04-18 06:55] LABS: CALCIUM LEVEL 8.8 MG/DL (8.8-10.2); CREATININE FOR GFR 1.09 MG/DL (0.55-1.30); GLOMERULAR FILTRATION RATE 50.8 (>32); POTASSIUM SERUM 3.6 MEQ/L (3.5-5.1)
[2019-04-18] MEDS: HumaLOG INSULIN (NovoLOG) PER UNIT SC SCH ×4 (07:30→21:16)
[2019-04-18] MEDS: DOCUSATE SODIUM 100 MG CAP PO SCH ×3 (09:00→21:15)
[2019-04-18] MEDS: FUROSEMIDE 40 MG TAB PO SCH (09:25)
[2019-04-18] MEDS: ASPIRIN 81 MG CHEW TABLET PO SCH (09:25)
[2019-04-18] MEDS: OCUVITE 1 TAB PO SCH (09:25)
[2019-04-18] MEDS: PANTOPRAZOLE 40MG TAB (PROTONIX) PO SCH (09:26)
[2019-04-18] MEDS: clonazePAM 0.5 MG TAB PO SCH ×3 (09:26→21:15)
[2019-04-18] MEDS: ENOXAPARIN 30 MG/0.3 ML SYR (J1650) SC SCH (09:26)
[2019-04-18] MEDS: ATORVASTATIN 10 MG TAB PO SCH (09:26)
[2019-04-18] MEDS: FOLIC ACID 1 MG TAB PO SCH (09:26)
[2019-04-18] MEDS: PERCOCET 5MG/325MG TAB PO PRN ×3 (09:35→21:28)
[2019-04-18] MEDS: traMADol 50 MG TAB PO PRN (11:40)
[2019-04-18 14:00] VITALS: BP 136/74
--- NOTE | 2019-04-18 15:49 | IPNPDOC ---
Date Seen The patient was seen on 04/18/19. Progress Note SUBJECTIVE: Patient still appear uncomfortable but think that her pain is slightly better controlled with the morphine. Waiting for back brace to work with PT today. No other complaints apart from persistent pain. Sleeping better reportedly. OBJECTIVE PHYSICAL EXAMINATION: VITAL SIGNS: Please see below. General: Mild distress, Alert Eyes: Normal sclera, EOMI, BERNICE HENT: Atraumatic, neck supple Cardiovascular: Normal rate, normal rhythm. Pulmonary: Clear to auscultation b/l, no wheezing GI: Soft, nontender, nondistended MSK: tenderness to palpation mid lower lumbar. reduced ROM due to pain. Skin: Warm and dry Neuro: CN grossly intact. No focal deficits. Strengths equal b/l. Psych: oriented x 3 LABORATORY DATA, IMAGING STUDIES, MICROBIOLOGY: Please see below. DVT prophylaxis ordered?: Lovenox Lumbar spine MRI- IMPRESSION: 1. Chronic anterior wedge fracture deformity of the L1 with approximately 50% loss of anterior vertebral body height and mild retropulsion of the superior endplate resulting in minimal effacement of the anterior thecal sac. 2. Degenerative spondylosis of the lower thoracic and lumbar spine. 3. Indeterminate bone marrow edema signal within the visualized portions of the right first and second sacral segments. This may be secondary to trauma, infection, neoplasm, or edema associated with sacroiliac joint arthritis. Consider MRI of the sacrum as clinically indicated. 4. Tiny indeterminate low signal lesion within the anterior epidural space, abutting and indenting the anterior surface of the lower thoracic spinal cord at the level of the T11 vertebral body. This may represent a tiny extruded disc fragment or other extra medullary spinal lesion. Sacral MRI- Pending ASSESSMENT AND PLAN: 1. L1 compression fracture - s/p Fall several weeks prior. - Ortho following. - Lumbar MRI noted, appear to be chronic wedge fracture. - Appreciated assistance. To also get a lumbar corset brace and c/w PT. - Pain management consult for possible epidural or medication adjustment. 2. Central canal stenosis, worst at L4/L5 - To get MR of spine. Ortho following. - Consider pain management with possible epidural. 3. DM - diabetic diet. - ISS coverage. 4. HLD - c/w statin 5. Sacral edema - noted in lumbar spine MRI. - MRI of lower spine to assess sacrum pending. DISPOSITION: Was at assisted living facility but may need higher level of care. To be determine with CW following PT evaluation. VS, I&O, 24H, Fishbone Vital Signs/I&O Vital Signs Date Time Temp Pulse Resp B/P (MAP) Pulse Ox O2 Delivery O2 Flow Rate FiO2 04/18/19 14:00 98.0 81 17 136/74 (94) 96 2.0 04/16/19 22:55 Room Air I&O- Last 24 Hours up to 6 AM 04/18/19 06:00 Intake Total 780 ml Output Total 1325 ml Balance -545 ml Laboratory Data 24H LABS Laboratory Tests 2 04/17/19 16:27: Bedside Glucose (Misc Panel) 82L 04/18/19 06:23: Nucleated Red Blood Cells % (auto) 0.0, Anion Gap 5L, Glomerular Filtration Rate 50.8, Calcium Level 8.8 CBC/BMP Laboratory Tests 04/18/19 06:23 TYESHA GOMEZ MD Apr 18, 2019 15:49
[2019-04-18] MEDS: SERTRALINE 100 MG TAB PO SCH (21:15)
[2019-04-18] MEDS: GABAPENTIN 300 MG CAP PO SCH (21:15)
[2019-04-18] MEDS: RIVASTIGMINE TD SCH (21:17)
[2019-04-18] MEDS ORDERED: PROHANCE 279.3MG/ML 5ML VIAL (A9576) As Ordered ONE (21:47)
[2019-04-18 22:00] VITALS: BP 131/78
[2019-04-19 06:00] VITALS: BP 119/81
[2019-04-19] MEDS: ASPIRIN 81 MG CHEW TABLET PO SCH (08:11)
[2019-04-19] MEDS: ENOXAPARIN 30 MG/0.3 ML SYR (J1650) SC SCH (08:11)
[2019-04-19] MEDS: HumaLOG INSULIN (NovoLOG) PER UNIT SC SCH ×4 (08:11→21:00)
[2019-04-19] MEDS: clonazePAM 0.5 MG TAB PO SCH ×3 (08:11→21:26)
[2019-04-19] MEDS: OCUVITE 1 TAB PO SCH (08:12)
[2019-04-19] MEDS: DOCUSATE SODIUM 100 MG CAP PO SCH ×2 (08:12→21:27)
[2019-04-19] MEDS: FUROSEMIDE 40 MG TAB PO SCH (08:13)
[2019-04-19] MEDS: PANTOPRAZOLE 40MG TAB (PROTONIX) PO SCH (08:13)
[2019-04-19] MEDS: traMADol 50 MG TAB PO PRN (08:13)
[2019-04-19] MEDS: ATORVASTATIN 10 MG TAB PO SCH (08:13)
[2019-04-19] MEDS: FOLIC ACID 1 MG TAB PO SCH (08:13)
--- NOTE | 2019-04-19 09:35 | REP ---
MRI sacrum: 04/18/2019. Indication: Sacral pain. Comparison: None. Technique: Multiplanar short and long TR sequences of the sacrum were performed without IV IV contrast. Findings: Diminished T1 and elevated T2 signal is present within the bilateral sacral ala. There is corresponding gadolinium enhancement. Sacrococcygeal alignment remains stable. The sacral plexus is unremarkable. Impression: Findings most consistent with bilateral sacral ala fractures. Nuclear medicine study could be performed for further evaluation. Electronically Signed by Geraldo Nunez DO 04/19/2019 09:27 A
[2019-04-19] MEDS: PERCOCET 5MG/325MG TAB PO PRN ×2 (11:49→21:29)
[2019-04-19 14:00] VITALS: BP 128/63
--- NOTE | 2019-04-19 15:29 | CR.PDOC ---
[facility] Pain Clinic Consultation General Date of Consultation: 04/19/19 Chief Complaint The patient is a 84-year-old female admitted with a reason for visit of Vertebral Compression Fracture. History of Present Illness 84-year-old female with a history of compression fracture and head pain. Cur rently being treated with Percocet 05/325 one tablet every 4 hours as needed for pain, morphine 1 mg IV every 3 hours as needed. Per patient report this is been ineffective in relieving her pain. She reports increased pain with movement of her head. Home Medications Scheduled Aspirin (Aspirin) 81 Mg Tab.chew, 81 MG PO DAILY, (Reported) Atorvastatin Calcium (Atorvastatin Calcium) 10 Mg Tablet, 10 MG PO DAILY, (Reported) Calcium Carbonate/Vitamin D3 (Calcium 600-Vit D3 200 Tablet) 1 Each Tablet, 1 TAB PO BID, (Reported) Clonazepam (Clonazepam) 0.5 Mg Tablet, 0.5 MG PO TID, (Reported) Folic Acid (Folic Acid) 1 Mg Tablet, 1 MG PO DAILY, (Reported) Furosemide (Lasix) 40 Mg Tablet, 40 MG PO DAILY, (Reported) Gabapentin (Gabapentin) 300 Mg Capsule, 300 MG PO QHS, (Reported) Metaxalone (Metaxalone) 400 Mg Tablet, 400 MG PO TID, (Reported) Multivitamin (Multivitamins) 1 Each Capsule, 1 CAP PO DAILY, (Reported) Pantoprazole Sodium (Protonix) 40 Mg Granpkt.dr, 40 MG PO DAILY, (Reported) Rivastigmine (Exelon) 13.3 Mg/24 Hr Patch.td24, 13.3 MG TD QHS, (Reported) Sertraline HCl (Sertraline HCl) 100 Mg Tablet, 100 MG PO QHS, (Reported) Vit A/Vit C/Vit E/Zinc/Copper (Preservision Areds Tablet) 1 Each Tablet, 1 TAB PO DAILY, (Reported) Scheduled PRN Acetaminophen (Tylenol) 325 Mg Tablet, 650 MG PO Q4H PRN for PAIN, (Reported) Meclizine HCl (Meclizine HCl) 25 Mg Tablet, 25 MG PO TID PRN for DIZZINESS, (Reported) Polyvinyl Alcohol (Artificial Tears) 15 Ml Drops, 1 DROP OU Q4H PRN for DRY EYES, (Reported) Tramadol HCl (Tramadol HCl) 50 Mg Tablet, 50 MG PO DAILY PRN for PAIN, (Reported) Allergies Coded Allergies: Sulfa (Sulfonamide Antibiotics) (Verified Allergy, Unknown, 04/16/19) Lettuce (Verified Adverse Reaction, Mild, diarrhea, 04/16/19) Social History Social History Denies tobacco, alcohol, or illicit substance abuse. Review of Systems Subjective Constitutional: Denies: chills, fever HEENT: Reports: head aches; Denies: vision problems Pulmonary: Denies: shortness of breath Cardiovascular: Denies: chest pain Gastrointestinal: Reports: normal bowel movements; Denies: abdominal pain, constipation, diarrhea Physical Examination Physical Examination Vital Signs/I&O Vital Signs Date Time Temp Pulse Resp B/P (MAP) Pulse Ox O2 Delivery O2 Flow Rate FiO2 04/19/19 13:09 2.0 04/19/19 12:19 17 04/19/19 11:49 98.7 90 119/81 94 Nasal Cannula I&O- Last 24 Hours up to 6 AM 04/19/19 06:00 Intake Total 220 ml Output Total 700 ml Balance -480 ml General Exam: Positive: alert, attentive Chest Exam: Positive: Clear to auscultation Heart Exam: Positive: Regular rate and rhythm Laboratory Data Labs 24H Laboratory Tests 2 04/18/19 16:30: Bedside Glucose (Misc Panel) 98 04/18/19 20:33: Bedside Glucose (Misc Panel) 285H FSBS Laboratory Tests Test 04/18/19 16:30 04/18/19 20:33 Range/Units Bedside Glucose (Misc Panel) 98 285 83-110 MG/DL Assessment 84-year-old female with compression fractures and a history of chronic head pain. Given presenting symptoms and results of physical examination recommended Percocet 5/325 one or 2 tablets every 4 hours as needed for pain, and orthopedic consult for a potential neck brace and/or cervical collar as patient states she experiences increased head pain with movement. Recommendation and Plan Thank you Dr. Ryder, for allowing us to participate in the care of your patient. Should you have any questions we will be glad to discuss this with you at any time please contact us here at the pain center at [phone]. ABIDA CHUNG Apr 19, 2019 15:29
[2019-04-19] MEDS: MORPHINE 4 MG/ML 1ML VIAL/SYRINGE (J2270) IV PRN ×2 (15:30→19:10)
--- NOTE | 2019-04-19 20:13 | IPNPDOC ---
Date Seen The patient was seen on 04/19/19. Progress Note SUBJECTIVE: Patient has her brace in place this morning. Still in significant pain with any movement. No other complaints apart from pain. Seen by Dr. Lantigua from pain clinic. OBJECTIVE PHYSICAL EXAMINATION: VITAL SIGNS: Please see below. General: Mild distress, Alert Eyes: Normal sclera, EOMI, BERNICE HENT: Atraumatic, neck supple Cardiovascular: Normal rate, normal rhythm. Pulmonary: Clear to auscultation b/l, no wheezing GI: Soft, nontender, nondistended MSK: tenderness to palpation mid lower lumbar. reduced ROM due to pain. Skin: Warm and dry Neuro: CN grossly intact. No focal deficits. Strengths equal b/l. Psych: oriented x 3 LABORATORY DATA, IMAGING STUDIES, MICROBIOLOGY: Please see below. DVT prophylaxis ordered?: Lovenox Lumbar spine MRI- IMPRESSION: 1. Chronic anterior wedge fracture deformity of the L1 with approximately 50% loss of anterior vertebral body height and mild retropulsion of the superior endplate resulting in minimal effacement of the anterior thecal sac. 2. Degenerative spondylosis of the lower thoracic and lumbar spine. 3. Indeterminate bone marrow edema signal within the visualized portions of the right first and second sacral segments. This may be secondary to trauma, infection, neoplasm, or edema associated with sacroiliac joint arthritis. Consider MRI of the sacrum as clinically indicated. 4. Tiny indeterminate low signal lesion within the anterior epidural space, abutting and indenting the anterior surface of the lower thoracic spinal cord at the level of the T11 vertebral body. This may represent a tiny extruded disc fragment or other extra medullary spinal lesion. Sacral MRI- Pending ASSESSMENT AND PLAN: 1. L1 compression fracture - s/p Fall several weeks prior. - Ortho following. - Lumbar MRI noted, appear to be chronic wedge fracture. - Appreciated assistance. To also get a lumbar corset brace and c/w PT. - Pain management consulted. Recommended Percocet PRN for pain along with neck brace and or cervical collar for pain with head movement. 2. Central canal stenosis, worst at L4/L5 - To get MR of spine. Ortho following. - Consider pain management with possible epidural. 3. DM - diabetic diet. - ISS coverage. 4. HLD - c/w statin 5. Sacral ala fractures - Pain control. Ortho also following. DISPOSITION: Was at assisted living facility but may need higher level of care. To be determine with CW following PT evaluation. VS, I&O, 24H, Fishbone Vital Signs/I&O Vital Signs Date Time Temp Pulse Resp B/P (MAP) Pulse Ox O2 Delivery O2 Flow Rate FiO2 04/19/19 19:10 98.4 100 18 128/63 98 Nasal Cannula 2.0 I&O- Last 24 Hours up to 6 AM 04/19/19 05:59 Intake Total 220 ml Output Total 375 ml Balance -155 ml Laboratory Data 24H LABS Laboratory Tests 2 04/18/19 20:33: Bedside Glucose (Misc Panel) 285H 04/19/19 07:39: Bedside Glucose (Misc Panel) 106 04/19/19 12:54: Bedside Glucose (Misc Panel) 106 TYESHA GOMEZ MD Apr 19, 2019 20:12
[2019-04-19] MEDS: SERTRALINE 100 MG TAB PO SCH (21:26)
[2019-04-19] MEDS: GABAPENTIN 300 MG CAP PO SCH (21:26)
[2019-04-19] MEDS: RIVASTIGMINE TD SCH (21:27)
[2019-04-19 22:00] VITALS: BP 104/54
[2019-04-20 06:00] VITALS: BP 126/71
[2019-04-20] MEDS: PERCOCET 5MG/325MG TAB PO PRN ×2 (06:58→18:49)
[2019-04-20 07:03] LABS: HEMATOCRIT 33.8 % (36.0-47.0); HEMOGLOBIN 10.3 g/dl (12.0-15.5); MEAN CORPUSCULAR HEMOGLOBIN 27.8 pg (27.0-33.0); MEAN CORPUSCULAR HGB CONC 30.5 g/dl (32.0-36.5); MEAN CORPUSCULAR VOLUME 91.1 fl (80.0-96.0); PLATELET COUNT, AUTOMATED 247 10^3/uL (150-450); RED BLOOD COUNT 3.71 10^6/uL (4.00-5.40); WHITE BLOOD COUNT 5.9 10^3/uL (4.0-10.0)
[2019-04-20 07:41] LABS: CREATININE FOR GFR 1.25 MG/DL (0.55-1.30); GLOMERULAR FILTRATION RATE 43.4 (>32); POTASSIUM SERUM 3.8 MEQ/L (3.5-5.1)
[2019-04-20] MEDS: DOCUSATE SODIUM 100 MG CAP PO SCH ×2 (10:11→21:48)
[2019-04-20] MEDS: FUROSEMIDE 40 MG TAB PO SCH (10:11)
[2019-04-20] MEDS: ASPIRIN 81 MG CHEW TABLET PO SCH (10:11)
[2019-04-20] MEDS: ATORVASTATIN 10 MG TAB PO SCH (10:11)
[2019-04-20] MEDS: clonazePAM 0.5 MG TAB PO SCH ×3 (10:11→21:48)
[2019-04-20] MEDS: ENOXAPARIN 30 MG/0.3 ML SYR (J1650) SC SCH (10:12)
[2019-04-20] MEDS: FOLIC ACID 1 MG TAB PO SCH (10:12)
[2019-04-20] MEDS: OCUVITE 1 TAB PO SCH (10:15)
[2019-04-20] MEDS: HumaLOG INSULIN (NovoLOG) PER UNIT SC SCH ×4 (10:15→21:00)
[2019-04-20] MEDS: PANTOPRAZOLE 40MG TAB (PROTONIX) PO SCH (10:15)
--- NOTE | 2019-04-20 14:16 | IPNPDOC ---
Date Seen The patient was seen on 04/20/19. Progress Note SUBJECTIVE: Patient think that the new pain regimen has improved her pain but still pers istent with movement. No other complaints apart from pain. OBJECTIVE PHYSICAL EXAMINATION: VITAL SIGNS: Please see below. General: Mild distress, Alert Eyes: Normal sclera, EOMI, BERNICE HENT: Atraumatic, neck supple Cardiovascular: Normal rate, normal rhythm. Pulmonary: Clear to auscultation b/l, no wheezing GI: Soft, nontender, nondistended MSK: tenderness to palpation mid lower lumbar. reduced ROM due to pain, back brace in place. Skin: Warm and dry Neuro: CN grossly intact. No focal deficits. Strengths equal b/l. Psych: oriented x 3 LABORATORY DATA, IMAGING STUDIES, MICROBIOLOGY: Please see below. DVT prophylaxis ordered?: Lovenox Lumbar spine MRI- IMPRESSION: 1. Chronic anterior wedge fracture deformity of the L1 with approximately 50% loss of anterior vertebral body height and mild retropulsion of the superior endplate resulting in minimal effacement of the anterior thecal sac. 2. Degenerative spondylosis of the lower thoracic and lumbar spine. 3. Indeterminate bone marrow edema signal within the visualized portions of the right first and second sacral segments. This may be secondary to trauma, infection, neoplasm, or edema associated with sacroiliac joint arthritis. Consider MRI of the sacrum as clinically indicated. 4. Tiny indeterminate low signal lesion within the anterior epidural space, abutting and indenting the anterior surface of the lower thoracic spinal cord at the level of the T11 vertebral body. This may represent a tiny extruded disc fragment or other extra medullary spinal lesion. Sacral MRI- Pending ASSESSMENT AND PLAN: 1. L1 compression fracture - s/p Fall several weeks prior. - Ortho following. - Lumbar MRI noted, appear to be chronic wedge fracture. - Appreciated assistance. c/w lumbar corset brace and PT. - Pain management consulted. Recommended Percocet PRN for pain along with neck brace and or cervical collar for pain with head movement. 2. Central canal stenosis, worst at L4/L5 - To get MR of spine. Ortho following. - Consider pain management with possible epidural. 3. DM - diabetic diet. - ISS coverage. 4. HLD - c/w statin 5. Sacral ala fractures - Pain control. Ortho also following. DISPOSITION: Was at assisted living facility but may need higher level of care, likely Rehab vs. [facility]. VS, I&O, 24H, Fishbone Vital Signs/I&O Vital Signs Date Time Temp Pulse Resp B/P (MAP) Pulse Ox O2 Delivery O2 Flow Rate FiO2 04/20/19 08:00 2.0 04/20/19 07:28 20 99 Nasal Cannula 04/20/19 06:00 97.9 80 126/71 (89) I&O- Last 24 Hours up to 6 AM 04/20/19 06:00 Intake Total 300 ml Output Total 500 ml Balance -200 ml Laboratory Data 24H LABS Laboratory Tests 2 04/19/19 21:11: Bedside Glucose (Misc Panel) 133H 04/20/19 06:49: Nucleated Red Blood Cells % (auto) 0.0, Anion Gap 5L, Glomerular Filtration Rate 43.4, Calcium Level 9.0 04/20/19 11:49: Bedside Glucose (Misc Panel) 89 CBC/BMP Laboratory Tests 04/20/19 06:49 TYESHA GOMEZ MD Apr 20, 2019 14:16
[2019-04-20 14:24] VITALS: BP 103/48
[2019-04-20] MEDS: SERTRALINE 100 MG TAB PO SCH (21:48)
[2019-04-20] MEDS: MORPHINE 4 MG/ML 1ML VIAL/SYRINGE (J2270) IV PRN (21:48)
[2019-04-20] MEDS: GABAPENTIN 300 MG CAP PO SCH (21:48)
[2019-04-20] MEDS: RIVASTIGMINE TD SCH (21:48)
[2019-04-20 22:00] VITALS: BP 136/62
[2019-04-20] MEDS: traMADol 50 MG TAB PO PRN (23:34)
[2019-04-21 06:00] VITALS: BP 120/58
[2019-04-21] MEDS: MORPHINE 4 MG/ML 1ML VIAL/SYRINGE (J2270) IV PRN (06:27)
[2019-04-21] MEDS: HumaLOG INSULIN (NovoLOG) PER UNIT SC SCH ×4 (07:30→21:00)
[2019-04-21] MEDS: clonazePAM 0.5 MG TAB PO SCH ×3 (08:58→21:40)
[2019-04-21] MEDS: ASPIRIN 81 MG CHEW TABLET PO SCH (08:58)
[2019-04-21] MEDS: DOCUSATE SODIUM 100 MG CAP PO SCH ×2 (08:58→21:40)
[2019-04-21] MEDS: PANTOPRAZOLE 40MG TAB (PROTONIX) PO SCH (08:58)
[2019-04-21] MEDS: FOLIC ACID 1 MG TAB PO SCH (08:58)
[2019-04-21] MEDS: OCUVITE 1 TAB PO SCH (08:58)
[2019-04-21] MEDS: ATORVASTATIN 10 MG TAB PO SCH (08:58)
[2019-04-21] MEDS: FUROSEMIDE 40 MG TAB PO SCH (08:58)
[2019-04-21] MEDS: PERCOCET 5MG/325MG TAB PO PRN ×3 (08:58→21:53)
[2019-04-21] MEDS: ENOXAPARIN 30 MG/0.3 ML SYR (J1650) SC SCH (08:59)
[2019-04-21 14:00] VITALS: BP 122/56
--- NOTE | 2019-04-21 15:43 | IPNPDOC ---
Date Seen The patient was seen on 04/21/19. Progress Note SUBJECTIVE: Patient reports that her back doesn't bother her as much anymore, mostly her neck and head. Although head and neck pain is chronic from previous falls a long time ago, neck seems worse now. Neck brace that was brought did not fit, waiting for a new brace. OBJECTIVE PHYSICAL EXAMINATION: VITAL SIGNS: Please see below. General: Mild distress, Alert Eyes: Normal sclera, EOMI, BERNICE HENT: Atraumatic, neck supple Cardiovascular: Normal rate, normal rhythm. Pulmonary: Clear to auscultation b/l, no wheezing GI: Soft, nontender, nondistended MSK: tenderness to palpation mid lower lumbar. reduced ROM due to pain, back brace in place. Skin: Warm and dry Neuro: CN grossly intact. No focal deficits. Strengths equal b/l. Psych: oriented x 3 LABORATORY DATA, IMAGING STUDIES, MICROBIOLOGY: Please see below. DVT prophylaxis ordered?: Lovenox Lumbar spine MRI- IMPRESSION: 1. Chronic anterior wedge fracture deformity of the L1 with approximately 50% loss of anterior vertebral body height and mild retropulsion of the superior endplate resulting in minimal effacement of the anterior thecal sac. 2. Degenerative spondylosis of the lower thoracic and lumbar spine. 3. Indeterminate bone marrow edema signal within the visualized portions of the right first and second sacral segments. This may be secondary to trauma, infection, neoplasm, or edema associated with sacroiliac joint arthritis. Consider MRI of the sacrum as clinically indicated. 4. Tiny indeterminate low signal lesion within the anterior epidural space, abutting and indenting the anterior surface of the lower thoracic spinal cord at the level of the T11 vertebral body. This may represent a tiny extruded disc fragment or other extra medullary spinal lesion. Sacral MRI- Pending ASSESSMENT AND PLAN: 1. L1 compression fracture - s/p Fall several weeks prior. - Ortho following. - Lumbar MRI noted, appear to be chronic wedge fracture. - Appreciated assistance. c/w lumbar corset brace and PT. - Pain management consulted. Recommended Percocet PRN for pain along with neck brace and or cervical collar for pain with head movement. 2. Central canal stenosis, worst at L4/L5 - Pain control. Seen by pain management. 3. DM - diabetic diet. - ISS coverage. 4. HLD - c/w statin 5. Sacral ala fractures - Pain control. Ortho also following. 6. Neck pain - previous head/neck pain post trauma in the past but neck has been bothering her more in the past few days. - Repeat CT cervical spine. DISPOSITION: Was at assisted living facility but may need higher level of care, likely Rehab vs. [facility]. VS, I&O, 24H, Fishbone Vital Signs/I&O Vital Signs Date Time Temp Pulse Resp B/P (MAP) Pulse Ox O2 Delivery O2 Flow Rate FiO2 04/21/19 14:24 19 Nasal Cannula 1.0 04/21/19 14:00 98.2 88 122/56 (78) 98 I&O- Last 24 Hours up to 6 AM 04/21/19 06:00 Intake Total 600 ml Output Total 500 ml Balance 100 ml Laboratory Data 24H LABS Laboratory Tests 2 04/20/19 16:32: Bedside Glucose (Misc Panel) 91 04/20/19 20:55: Bedside Glucose (Misc Panel) 147H 04/21/19 11:29: Bedside Glucose (Misc Panel) 108 TYESHA GOMEZ MD Apr 21, 2019 15:43
--- NOTE | 2019-04-21 16:25 | REP ---
CT study of the cervical spine without contrast: History: Persistent neck pain. History of trauma. Comparison CT study March 26, 2019. Technique: Helical scanning is acquired and overlapping 2 mm high resolution axial images were generated and reviewed at bone and soft tissue window settings. Coronal and sagittal multiplanar re-formations images are generated. CT findings: There is no evidence of cervical spine element fracture. No skull base fracture is seen. Cervical vertebral body heights are preserved. Alignment is normal. Facet joints are normally aligned bilaterally at each cervical level on multiplanar re-formations images. There is no evidence of intraspinal or paraspinal hematoma. No extra vertebral abnormality is seen. There are fairly extensive degenerative spondylosis changes again noted with degenerative disc disease most pronounced at C5-6 C6-7 and C7-T1. Osteoarthritic facet hypertrophy is noted in the mid cervical spine most pronounced on the left at C4-5 and C5-6. 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 These findings are unchanged. There is mild vascular calcification. Impression: Moderate degenerative spondylosis changes. Otherwise negative CT study of the cervical spine without contrast. No fracture seen. Electronically Signed by Greg Mata MD 04/21/2019 04:16 P
[2019-04-21] MEDS: GABAPENTIN 300 MG CAP PO SCH (21:40)
[2019-04-21] MEDS: RIVASTIGMINE TD SCH (21:40)
[2019-04-21] MEDS: SERTRALINE 100 MG TAB PO SCH (21:40)
[2019-04-21 22:00] VITALS: BP 134/62
[2019-04-22 06:00] VITALS: BP 134/65
[2019-04-22] MEDS: HumaLOG INSULIN (NovoLOG) PER UNIT SC SCH ×4 (07:30→21:00)
[2019-04-22] MEDS: DOCUSATE SODIUM 100 MG CAP PO SCH ×2 (08:52→21:00)
[2019-04-22] MEDS: FUROSEMIDE 40 MG TAB PO SCH (08:53)
[2019-04-22] MEDS: PANTOPRAZOLE 40MG TAB (PROTONIX) PO SCH (08:53)
[2019-04-22] MEDS: ATORVASTATIN 10 MG TAB PO SCH (08:53)
[2019-04-22] MEDS: clonazePAM 0.5 MG TAB PO SCH ×3 (08:53→21:13)
[2019-04-22] MEDS: FOLIC ACID 1 MG TAB PO SCH (08:53)
[2019-04-22] MEDS: ASPIRIN 81 MG CHEW TABLET PO SCH (08:53)
[2019-04-22] MEDS: OCUVITE 1 TAB PO SCH (08:53)
[2019-04-22] MEDS: ENOXAPARIN 30 MG/0.3 ML SYR (J1650) SC SCH (08:54)
[2019-04-22] MEDS: PERCOCET 5MG/325MG TAB PO PRN ×2 (09:09→14:39)
[2019-04-22 10:00] VITALS: BP 130/64
[2019-04-22 14:00] VITALS: BP 129/66
--- NOTE | 2019-04-22 15:45 | IPNPDOC ---
Date Seen The patient was seen on 04/22/19. Progress Note SUBJECTIVE: Patient reports that her back doesn't bother her as much anymore, mostly her neck and head. Although head and neck pain is chronic from previous falls a long time ago, neck seems worse now. Neck brace that was brought did not fit, waiting for a new brace. OBJECTIVE PHYSICAL EXAMINATION: VITAL SIGNS: Please see below. General: Mild distress, Alert Eyes: Normal sclera, EOMI, BERNICE HENT: Atraumatic, neck supple Cardiovascular: Normal rate, normal rhythm. Pulmonary: Clear to auscultation b/l, no wheezing GI: Soft, nontender, nondistended MSK: tenderness to palpation mid lower lumbar. reduced ROM due to pain, back brace in place. Skin: Warm and dry Neuro: CN grossly intact. No focal deficits. Strengths equal b/l. Psych: oriented x 3 LABORATORY DATA, IMAGING STUDIES, MICROBIOLOGY: Please see below. DVT prophylaxis ordered?: Lovenox Lumbar spine MRI- IMPRESSION: 1. Chronic anterior wedge fracture deformity of the L1 with approximately 50% loss of anterior vertebral body height and mild retropulsion of the superior endplate resulting in minimal effacement of the anterior thecal sac. 2. Degenerative spondylosis of the lower thoracic and lumbar spine. 3. Indeterminate bone marrow edema signal within the visualized portions of the right first and second sacral segments. This may be secondary to trauma, infection, neoplasm, or edema associated with sacroiliac joint arthritis. Consider MRI of the sacrum as clinically indicated. 4. Tiny indeterminate low signal lesion within the anterior epidural space, abutting and indenting the anterior surface of the lower thoracic spinal cord at the level of the T11 vertebral body. This may represent a tiny extruded disc fragment or other extra medullary spinal lesion. Sacral MRI- Findings most consistent with bilateral sacral ala fractures. Nuclear medicine study could be performed for further evaluation. ASSESSMENT AND PLAN: 1. L1 compression fracture - s/p Fall several weeks prior. - Ortho following. - Lumbar MRI noted, appear to be chronic wedge fracture. - Appreciated assistance. c/w lumbar corset brace and PT. - Pain management consulted. Recommended Percocet PRN for pain along with neck brace and or cervical collar for pain with head movement. 2. Central canal stenosis, worst at L4/L5 - Pain control. Seen by pain management. 3. DM - diabetic diet. - ISS coverage. 4. HLD - c/w statin 5. Sacral ala fractures - Pain control. Ortho also following. 6. Neck pain - previous head/neck pain post trauma in the past but neck has been bothering her more in the past few days. - Repeat CT cervical spine with moderate degenerative disc disease but no acute fractures. - Cervical collar obtained does not fit and cannot finger any fitting device at this time. Will see if nursing staff can help. DISPOSITION: Was at assisted living facility but may need higher level of care, likely Rehab vs. [facility]. VS, I&O, 24H, Fishbone Vital Signs/I&O Vital Signs Date Time Temp Pulse Resp B/P (MAP) Pulse Ox O2 Delivery O2 Flow Rate FiO2 04/22/19 15:09 19 Room Air 04/22/19 14:00 96.8 62 129/66 (87) 97 2.0 I&O- Last 24 Hours up to 6 AM 04/22/19 06:00 Intake Total 720 ml Balance 720 ml Laboratory Data 24H LABS Laboratory Tests 2 04/21/19 16:54: Bedside Glucose (Misc Panel) 128H 04/21/19 20:58: Bedside Glucose (Misc Panel) 125H 04/22/19 05:59: Bedside Glucose (Misc Panel) 91 04/22/19 11:42: Bedside Glucose (Misc Panel) 110 TYESHA GOMEZ MD Apr 22, 2019 15:45
[2019-04-22] MEDS: GABAPENTIN 300 MG CAP PO SCH (21:13)
[2019-04-22] MEDS: SERTRALINE 100 MG TAB PO SCH (21:13)
[2019-04-22] MEDS: traMADol 50 MG TAB PO PRN (21:14)
[2019-04-22] MEDS: RIVASTIGMINE TD SCH (21:15)
[2019-04-22 22:00] VITALS: BP 124/57
[2019-04-23] MEDS: PERCOCET 5MG/325MG TAB PO PRN ×3 (00:43→21:45)
[2019-04-23 06:00] VITALS: BP 103/62
[2019-04-23] MEDS: HumaLOG INSULIN (NovoLOG) PER UNIT SC SCH ×4 (07:30→21:00)
[2019-04-23] MEDS: ATORVASTATIN 10 MG TAB PO SCH (08:05)
[2019-04-23] MEDS: FOLIC ACID 1 MG TAB PO SCH (08:05)
[2019-04-23] MEDS: PANTOPRAZOLE 40MG TAB (PROTONIX) PO SCH (08:05)
[2019-04-23] MEDS: clonazePAM 0.5 MG TAB PO SCH ×3 (08:05→21:44)
[2019-04-23] MEDS: OCUVITE 1 TAB PO SCH (08:05)
[2019-04-23] MEDS: ASPIRIN 81 MG CHEW TABLET PO SCH (08:05)
[2019-04-23] MEDS: DOCUSATE SODIUM 100 MG CAP PO SCH ×3 (08:05→21:00)
[2019-04-23] MEDS: FUROSEMIDE 40 MG TAB PO SCH (08:05)
[2019-04-23] MEDS: traMADol 50 MG TAB PO PRN (08:07)
[2019-04-23] MEDS: ENOXAPARIN 30 MG/0.3 ML SYR (J1650) SC SCH (08:09)
[2019-04-23] MEDS ORDERED: PERCOCET PO (11:37)
[2019-04-23 14:00] VITALS: BP 108/62
--- NOTE | 2019-04-23 19:13 | IPNPDOC ---
Date Seen The patient was seen on 04/23/19. Progress Note SUBJECTIVE: Patient neck pain persistent. Did not have a neck collar that fit this morning, looking for replacement. No new complaints. OBJECTIVE PHYSICAL EXAMINATION: VITAL SIGNS: Please see below. General: Mild distress, Alert Eyes: Normal sclera, EOMI, BERNICE HENT: Atraumatic, neck supple Cardiovascular: Normal rate, normal rhythm. Pulmonary: Clear to auscultation b/l, no wheezing GI: Soft, nontender, nondistended MSK: tenderness to palpation mid lower lumbar. reduced ROM due to pain, back brace in place. Skin: Warm and dry Neuro: CN grossly intact. No focal deficits. Strengths equal b/l. Psych: oriented x 3 LABORATORY DATA, IMAGING STUDIES, MICROBIOLOGY: Please see below. DVT prophylaxis ordered?: Lovenox Lumbar spine MRI- IMPRESSION: 1. Chronic anterior wedge fracture deformity of the L1 with approximately 50% loss of anterior vertebral body height and mild retropulsion of the superior endplate resulting in minimal effacement of the anterior thecal sac. 2. Degenerative spondylosis of the lower thoracic and lumbar spine. 3. Indeterminate bone marrow edema signal within the visualized portions of the right first and second sacral segments. This may be secondary to trauma, infection, neoplasm, or edema associated with sacroiliac joint arthritis. Consider MRI of the sacrum as clinically indicated. 4. Tiny indeterminate low signal lesion within the anterior epidural space, abutting and indenting the anterior surface of the lower thoracic spinal cord at the level of the T11 vertebral body. This may represent a tiny extruded disc fragment or other extra medullary spinal lesion. Sacral MRI- Findings most consistent with bilateral sacral ala fractures. Nuclear medicine study could be performed for further evaluation. ASSESSMENT AND PLAN: 1. L1 compression fracture - s/p Fall several weeks prior. - Ortho following. - Lumbar MRI noted, appear to be chronic wedge fracture. - Appreciated assistance. c/w lumbar corset brace and PT. - Pain management consulted. Recommended Percocet PRN for pain along with neck brace and or cervical collar for pain with head movement. 2. Central canal stenosis, worst at L4/L5 - Pain control. Seen by pain management. 3. DM - diabetic diet. - ISS coverage. 4. HLD - c/w statin 5. Sacral ala fractures - Pain control. Ortho also following. 6. Neck pain - previous head/neck pain post trauma in the past but neck has been bothering her more in the past few days. - Repeat CT cervical spine with moderate degenerative disc disease but no acute fractures. - Ortho to also evaluate. DISPOSITION: Plan to go to [facility]. VS, I&O, 24H, Fishbone Vital Signs/I&O Vital Signs Date Time Temp Pulse Resp B/P (MAP) Pulse Ox O2 Delivery O2 Flow Rate FiO2 04/23/19 17:00 16 04/23/19 14:00 98.9 71 108/62 (77) 97 Room Air 04/22/19 14:00 2.0 I&O- Last 24 Hours up to 6 AM 04/23/19 05:59 Intake Total 1380 ml Output Total 0 ml Balance 1380 ml Laboratory Data 24H LABS Laboratory Tests 2 04/22/19 20:46: Bedside Glucose (Misc Panel) 127H 04/23/19 06:04: Bedside Glucose (Misc Panel) 86 04/23/19 11:32: Bedside Glucose (Misc Panel) 90 04/23/19 17:43: Bedside Glucose (Misc Panel) 92 TYESHA GOMEZ MD Apr 23, 2019 19:13
[2019-04-23] MEDS: SERTRALINE 100 MG TAB PO SCH (21:44)
[2019-04-23] MEDS: RIVASTIGMINE TD SCH (21:44)
[2019-04-23] MEDS: GABAPENTIN 300 MG CAP PO SCH (21:44)
[2019-04-23 22:00] VITALS: BP 113/63
[2019-04-24 05:45] LABS: MEAN CORPUSCULAR HEMOGLOBIN 27.4 pg (27.0-33.0); MEAN CORPUSCULAR VOLUME 88.1 fl (80.0-96.0); PLATELET COUNT, AUTOMATED 278 10^3/uL (150-450); RED BLOOD COUNT 3.29 10^6/uL (4.00-5.40); WHITE BLOOD COUNT 4.2 10^3/uL (4.0-10.0)
[2019-04-24 06:00] VITALS: BP 125/64
[2019-04-24 06:09] LABS: CALCIUM LEVEL 8.9 MG/DL (8.8-10.2); CREATININE FOR GFR 0.96 MG/DL (0.55-1.30); GLOMERULAR FILTRATION RATE 58.8 (>32); POTASSIUM SERUM 3.6 MEQ/L (3.5-5.1)
[2019-04-24] MEDS: HumaLOG INSULIN (NovoLOG) PER UNIT SC SCH ×2 (07:30→12:00)
[2019-04-24] MEDS: PANTOPRAZOLE 40MG TAB (PROTONIX) PO SCH (08:43)
[2019-04-24] MEDS: FOLIC ACID 1 MG TAB PO SCH (08:43)
[2019-04-24] MEDS: FUROSEMIDE 40 MG TAB PO SCH (08:43)
[2019-04-24] MEDS: ATORVASTATIN 10 MG TAB PO SCH (08:43)
[2019-04-24] MEDS: OCUVITE 1 TAB PO SCH (08:43)
[2019-04-24] MEDS: ENOXAPARIN 30 MG/0.3 ML SYR (J1650) SC SCH (08:43)
[2019-04-24] MEDS: clonazePAM 0.5 MG TAB PO SCH (08:43)
[2019-04-24] MEDS: DOCUSATE SODIUM 100 MG CAP PO SCH (08:44)
[2019-04-24] MEDS: ASPIRIN 81 MG CHEW TABLET PO SCH (08:44)
--- NOTE | 2019-04-24 14:18 | DS.PDOC ---
Discharge Summary General Date of Admission Apr 18, 2019 at 15:45 Date of Discharge 04/24/19 Discharge Summary PROCEDURES PERFORMED DURING STAY: [None]. ADMITTING DIAGNOSES: 1. Vertebral compression fracture 2. DM 3. HLD DISCHARGE DIAGNOSES: 1. Vertebral compression fracture 2. DM 3. HLD 4. Neck pain COMPLICATIONS/CHIEF COMPLAINT: Vertebral Compression Fracture. HISTORY OF PRESENT ILLNESS: " 84 years old white female who resides at [facility] assisted-living facility, but lately she has developed severe back pain and has been unable to take care of for activities of daily living secondary to back pain. She is has difficulty ambulation and was brought in by family for possible admission to higher level of care facility. Patient offers only complains of back pain, no nausea, vomiting, chest pain, shortness of breath, etc." HOSPITAL COURSE: Patient was seen by orthopedic surgery and pain management during course of hospitalization while working with PT. Lower back complaints seem to no longer be an issue, however, she complained of severe neck and head pain. She reported that she has had many falls and the head pain has been on going for a long time, happened after several falls earlier but has been worse over the past few days after she was reportedly moved too quickly. CT scan of cervical spine shows moderate degnerative disc disease but no fracture or acute pathology. A neck collar was placed and patient is to be discharged to [facility] and to follow up with P MD and Ortho as outpatient. DISCHARGE MEDICATIONS: Please see below. ALLERGIES: Please see below. PHYSICAL EXAMINATION ON DISCHARGE: VITAL SIGNS: Please see below. General: Mild distress, Alert Eyes: Normal sclera, EOMI, BERNICE HENT: Atraumatic, neck supple Cardiovascular: Normal rate, normal rhythm. Pulmonary: Clear to auscultation b/l, no wheezing GI: Soft, nontender, nondistended MSK: tenderness to palpation mid lower lumbar. reduced ROM due to pain. Also pain and reduced ROM in cervical spine. Skin: Warm and dry Neuro: CN grossly intact. No focal deficits. Strengths equal b/l. Psych: oriented x 3 LABORATORY DATA: Please see below. IMAGING: Lumbar spine MRI- IMPRESSION: 1. Chronic anterior wedge fracture deformity of the L1 with approximately 50% loss of anterior vertebral body height and mild retropulsion of the superior endplate resulting in minimal effacement of the anterior thecal sac. 2. Degenerative spondylosis of the lower thoracic and lumbar spine. 3. Indeterminate bone marrow edema signal within the visualized portions of the right first and second sacral segments. This may be secondary to trauma, infection, neoplasm, or edema associated with sacroiliac joint arthritis. Consider MRI of the sacrum as clinically indicated. 4. Tiny indeterminate low signal lesion within the anterior epidural space, abutting and indenting the anterior surface of the lower thoracic spinal cord at the level of the T11 vertebral body. This may represent a tiny extruded disc fragment or other extra medullary spinal lesion. Sacral MRI- Findings most consistent with bilateral sacral ala fractures. Nuclear medicine study could be performed for further evaluation. Cervical CT- Impression: Moderate degenerative spondylosis changes. Otherwise negative CT study of the cervical spine without contrast. No fracture seen. ACTIVITY: [As tolerated]. DIET: Regular DISCHARGE PLAN: f/u PMD and Orthopedic surgery c/w neck brace for now DISPOSITION: [facility]. DISCHARGE INSTRUCTIONS: f/u PMD and Orthopedic surgery c/w neck brace for now ITEMS TO FOLLOWUP ON ON OUTPATIENT: None DISCHARGE CONDITION: [Stable]. TIME SPENT ON DISCHARGE: 35 minutes. Vital Signs/I&Os Vital Signs Date Time Temp Pulse Resp B/P (MAP) Pulse Ox O2 Delivery O2 Flow Rate FiO2 04/24/19 06:00 96.8 80 16 125/64 (84) 96 Room Air 04/22/19 14:00 2.0 I&O- Last 24 Hours up to 6 AM 04/24/19 06:00 Intake Total 1505 ml Output Total 150 ml Balance 1355 ml Laboratory Data Labs 24H Laboratory Tests 2 04/23/19 17:43: Bedside Glucose (Misc Panel) 92 04/23/19 20:45: Bedside Glucose (Misc Panel) 123H 04/24/19 05:27: Nucleated Red Blood Cells % (auto) 0.0, Anion Gap 4L, Glomerular Filtration Rate 58.8, Calcium Level 8.9 04/24/19 11:51: Bedside Glucose (Misc Panel) 94 CBC/BMP Laboratory Tests 04/24/19 05:27 FSBS Laboratory Tests Test 04/23/19 17:43 04/23/19 20:45 04/24/19 11:51 Range/Units Bedside Glucose (Misc Panel) 92 123 94 83-110 MG/DL Discharge Medications Scheduled Aspirin (Aspirin) 81 Mg Tab.chew, 81 MG PO DAILY, (Reported) Atorvastatin Calcium (Atorvastatin Calcium) 10 Mg Tablet, 10 MG PO DAILY, (Reported) Calcium Carbonate/Vitamin D3 (Calcium 600-Vit D3 200 Tablet) 1 Each Tablet, 1 TAB PO BID, (Reported) Clonazepam (Clonazepam) 0.5 Mg Tablet, 0.5 MG PO TID, (Reported) Folic Acid (Folic Acid) 1 Mg Tablet, 1 MG PO DAILY, (Reported) Furosemide (Lasix) 40 Mg Tablet, 40 MG PO DAILY, (Reported) Gabapentin (Gabapentin) 300 Mg Capsule, 300 MG PO QHS, (Reported) Metaxalone (Metaxalone) 400 Mg Tablet, 400 MG PO TID, (Reported) Multivitamin (Multivitamins) 1 Each Capsule, 1 CAP PO DAILY, (Reported) Pantoprazole Sodium (Protonix) 40 Mg Granpkt.dr, 40 MG PO DAILY, (Reported) Rivastigmine (Exelon) 13.3 Mg/24 Hr Patch.td24, 13.3 MG TD QHS, (Reported) Sertraline HCl (Sertraline HCl) 100 Mg Tablet, 100 MG PO QHS, (Reported) Vit A/Vit C/Vit E/Zinc/Copper (Preservision Areds Tablet) 1 Each Tablet, 1 TAB PO DAILY, (Reported) Scheduled PRN Acetaminophen (Tylenol) 325 Mg Tablet, 650 MG PO Q4H PRN for PAIN, (Reported) Meclizine HCl (Meclizine HCl) 25 Mg Tablet, 25 MG PO TID PRN for DIZZINESS, (Reported) Oxycodone/Acetaminophen (Oxycodone-Acetaminophen 5-325) 1 Each Tablet, 1 TAB PO Q4HP PRN for PAIN SCALE 6-10 Polyvinyl Alcohol (Artificial Tears) 15 Ml Drops, 1 DROP OU Q4H PRN for DRY EYES, (Reported) Tramadol HCl (Tramadol HCl) 50 Mg Tablet, 50 MG PO DAILY PRN for PAIN, (Reported) Allergies Coded Allergies: Sulfa (Sulfonamide Antibiotics) (Verified Allergy, Unknown, 04/16/19) Lettuce (Verified Adverse Reaction, Mild, diarrhea, 04/16/19) TYESHA GOMEZ MD Apr 24, 2019 14:18
== END 2019-04-24 13:45 | DRG 552 ==
LOC: M ED 17:03 → EDBD 17:03 → EDSEX 17:03 → M ED INP 17:04 → UNDOADMOB 21:21 → M MSPAV 22:58 → OBSVTOIN 04-18 15:45
PROVIDERS: ADMIT Internal Medicine; ATTEND Student in an Organized Health Care Education/Training Program
DX: S32.010A Wedge compression fracture of first lumbar vertebra, initial encounter for closed fracture (principal); E11.9 Type 2 diabetes mellitus without complications; M54.2 Cervicalgia; M50.30 Other cervical disc degeneration, unspecified cervical region; R26.89 Other abnormalities of gait and mobility; Z79.899 Other long term (current) drug therapy; Z79.82 Long term (current) use of aspirin; Z88.2 Allergy status to sulfonamides; Z91.038 Other insect allergy status; E78.5 Hyperlipidemia, unspecified; F03.90 Unspecified dementia, unspecified severity, without behavioral disturbance, psychotic disturbance, mood disturbance, and anxiety; W18.30XA Fall on same level, unspecified, initial encounter; Y92.009 Unspecified place in unspecified non-institutional (private) residence as the place of occurrence of the external cause

== ENCOUNTER 2019-06-13 18:14 | Emergency (ER) | payer MEDICARE, BC, OTHER, MEDICAID ==
[~2019-06-13] VITALS: Ht 160 cm; Wt 78.6 kg
[~2019-06-13 18:14] MED LIST changes: +ACET-907 PO; +ACET-908 PO; +ASPI81CH44 PO; +CALC-239 PO; +CLON0.5T2 PO; -CLON0.5T8 PO; +LASI40TA9 PO; +MULTCAP PO; +OCUVTAB4 PO; +PERCOCET PO; +PROTPAK PO; +SERT-138 PO; +[UNRECOGNIZED DRUG - CODE] TD
[2019-06-13 18:20] VITALS: BP 151/92
--- NOTE | 2019-06-13 20:40 | REPVR ---
PROCEDURE INFORMATION: Exam: CT Head Without Contrast Exam date and time: 06/13/2019 8:15 PM Age: 84 years old Clinical history: Injury or trauma; Fall; Initial encounter; Blunt trauma (contusions or hematomas); Additional info: Fall at [facility] dinner time RT struck on floor-possibly TECHNIQUE: Imaging protocol: Computed tomography of the head without contrast. Radiation optimization: All CT scans at this facility use at least one of these dose optimization techniques: automated exposure control; mA and/or kV adjustment per patient size (includes targeted exams where dose is matched to clinical indication); or iterative reconstruction. COMPARISON: CT Head without contrast 03/26/2019 11:37 PM FINDINGS: Brain: Decreased attenuation of the supratentorial white matter is likely secondary to chronic microvascular ischemia. No acute intracranial hemorrhage. Ventricles: Ventricular and subarachnoid spaces are age appropriate. Bones/joints: Unremarkable. No acute fracture. Sinuses: Visualized sinuses are unremarkable. No fluid levels. Mastoid air cells: Mild partial opacification of the right mastoid air cells. Soft tissues: Unremarkable. Vasculature: Intracranial vascular calcification. IMPRESSION: No acute intracranial abnormality. Electronically signed by: Papo Flores On 06/13/2019 20:40:20 PM
--- NOTE | 2019-06-13 22:23 | REPVR ---
PROCEDURE INFORMATION: Exam: XR Right Femur Exam date and time: 06/13/2019 8:48 PM Age: 84 years old Clinical history: Pain; Thigh; Right; Additional info: Fall in dining room at [facility], reporting RT hip pain TECHNIQUE: Imaging protocol: XR Right femur. Views: 2 views. COMPARISON: CR Tibia, Fibula lower leg 07/28/2012 12:39 PM FINDINGS: Bones/joints: Osteopenia. There are degenerative changes involving the right hip and right knee. No acute fracture or dislocation. Soft tissues: Unremarkable. Vasculature: Vascular calcification. IMPRESSION: No acute osseous abnormality. Electronically signed by: Papo Flores On 06/13/2019 22:23:02 PM
--- NOTE | 2019-06-13 22:23 | REPVR ---
PROCEDURE INFORMATION: Exam: XR Right Hip with Pelvis when Performed Exam date and time: 06/13/2019 8:48 PM Age: 84 years old Clinical history: Hip pain; Right hip; Additional info: Fall in dining room at [facility], reporting RT hip pain TECHNIQUE: Imaging protocol: XR Right hip with pelvis when performed. Views: 2 or 3 views. COMPARISON: CR HIPS BILAT W-AP PELVIS 04/12/2019 3:57 PM FINDINGS: Bones/joints: Osteopenia. There are degenerative changes involving the lumbar spine, hip joints and sacroiliac joints. No definite acute fracture or dislocation. Soft tissues: Unremarkable. IMPRESSION: Osteopenia without definite acute fracture. If clinical concern persists, CT may be considered. Electronically signed by: Papo Flores On 06/13/2019 22:22:56 PM
== END 2019-06-14 | disposition home or self-care (01) ==
LOC: EDBD 18:14 → M ED 18:14
DX: S00.83XA Contusion of other part of head, initial encounter (principal); S70.01XA Contusion of right hip, initial encounter; W18.39XA Other fall on same level, initial encounter; Y92.89 Other specified places as the place of occurrence of the external cause; I10 Essential (primary) hypertension; F03.90 Unspecified dementia, unspecified severity, without behavioral disturbance, psychotic disturbance, mood disturbance, and anxiety; Z79.899 Other long term (current) drug therapy; Z79.82 Long term (current) use of aspirin; Z88.1 Allergy status to other antibiotic agents; Z88.2 Allergy status to sulfonamides; Z91.018 Allergy to other foods

== ENCOUNTER → 2019-06-22 | Outpatient (REF) | payer MEDICARE, OTHER, MEDICAID ==
[~2019-06-22] MED LIST changes: +ASPI1CHW3 PO; -ASPI81CH44 PO; +CLON0.5T17 PO; -MECL-68 PO; +MECL-86 PO; +MECL1TAB31 PO; +MILKSUS3 PO
[2019-06-22 19:40] LABS: BASO % 0.9 % (0.0-1.0); EOS # 0.2 10^3/uL (0.0-0.5); EOS % 3.4 % (0.0-3.0); HEMATOCRIT 33.5 % (36.0-47.0); HEMOGLOBIN 9.8 g/dl (12.0-15.5); LYMPH # 0.9 10^3/uL (1.5-5.0); LYMPH % 19.8 % (24.0-44.0); MEAN CORPUSCULAR HEMOGLOBIN 25.7 pg (27.0-33.0); MEAN CORPUSCULAR HGB CONC 29.3 g/dl (32.0-36.5); MEAN CORPUSCULAR VOLUME 87.9 fl (80.0-96.0); MONO # 0.6 10^3/uL (0.0-0.8); MONO % 12.1 % (0.0-5.0); NEUTROPHILS % 63.4 % (36.0-66.0); PLATELET COUNT, AUTOMATED 253 10^3/uL (150-450); RED BLOOD COUNT 3.81 10^6/uL (4.00-5.40); WHITE BLOOD COUNT 4.7 10^3/uL (4.0-10.0)
[2019-06-22 20:16] LABS: ALBUMIN 3.5 GM/DL (3.2-5.2); BILIRUBIN,TOTAL 0.3 MG/DL (0.2-1.0); CHOLESTEROL RISK RATIO 3.28 (<5); CREATININE FOR GFR 0.99 MG/DL (0.55-1.30); GLOMERULAR FILTRATION RATE 56.8 (>32); MAGNESIUM LEVEL 1.9 MG/DL (1.8-2.4); PERCENT SATURATION 6.9 % (13.2-45.0); POTASSIUM SERUM 3.6 MEQ/L (3.5-5.1); THYROID STIMULATING HORMONE 3.52 uIU/ML (0.358-3.740); TOTAL 25(OH) VITAMIN D 24.3 NG/ML (30.0-100.0); TOTAL PROTEIN 7.4 GM/DL (6.4-8.2)
== END ==
LOC: M SFHCADAM 15:02
PROVIDERS: ATTEND Physician Assistant Medical
DX: R29.6 Repeated falls (principal); K21.9 Gastro-esophageal reflux disease without esophagitis; F41.9 Anxiety disorder, unspecified; G25.0 Essential tremor; E55.9 Vitamin D deficiency, unspecified; E78.2 Mixed hyperlipidemia; E03.9 Hypothyroidism, unspecified; D64.9 Anemia, unspecified
CPT/HCPCS: 80053; 80061; 82306; 82728; 83550; 83735; 84443; 85025; G0463

== ENCOUNTER 2019-07-09 07:25 | Observation (INO) | payer MEDICARE, BC, OTHER, MEDICAID ==
[~2019-07-09] VITALS: Ht 152.4 cm; Wt 79.5 kg
[~2019-07-09 07:25] MED LIST changes: -ASPI1CHW3 PO; +ASPI81CH44 PO; -CLON0.5T17 PO; +MECL-68 PO; -MECL-86 PO; -MECL1TAB31 PO; -MILKSUS3 PO
--- NOTE | 2019-07-09 08:25 | REPVR ---
PROCEDURE INFORMATION: Exam: CT Cervical Spine Without Contrast Exam date and time: 07/09/2019 7:44 AM Age: 84 years old Clinical indication: Injury or trauma; Fall; Initial encounter; Blunt trauma; Additional info: Fall injury TECHNIQUE: Imaging protocol: Computed tomography images of the cervical spine without contrast. Radiation optimization: All CT scans at this facility use at least one of these dose optimization techniques: automated exposure control; mA and/or kV adjustment per patient size (includes targeted exams where dose is matched to clinical indication); or iterative reconstruction. COMPARISON: CT Spine,cervical w/o contrast 04/21/2019 4:06 PM FINDINGS: Vertebrae: There is 2 mm of grade 1 retrolisthesis of C5 with respect C6. Normal vertebral body alignment is otherwise preserved. Vertebral body heights are within normal limits. Discs/Spinal canal/Neural foramina: There is severe intervertebral disc space loss at C6/7 and T1/T2. There is multilevel facet hypertrophy asymmetric to the left. At C3/4, disc osteophyte complex and moderate facet hypertrophy asymmetric to the left contribute to severe left neural foraminal narrowing. At C5/6, diffuse disc osteophyte complex/uncovering and moderate facet hypertrophy contribute to moderate to severe left neural foraminal narrowing. Soft tissues: Unremarkable. Lungs: Lung apices are normal. IMPRESSION: No acute findings. Electronically signed by: Mary Dickens On 07/09/2019 08:24:47 AM
--- NOTE | 2019-07-09 08:38 | REPVR ---
PROCEDURE INFORMATION: Exam: CT Head Without Contrast Exam date and time: 07/09/2019 7:37 AM Age: 84 years old Clinical indication: Injury or trauma; Fall; Initial encounter; Blunt trauma (contusions or hematomas); Additional info: Fall injury TECHNIQUE: Imaging protocol: Computed tomography of the head without contrast. Radiation optimization: All CT scans at this facility use at least one of these dose optimization techniques: automated exposure control; mA and/or kV adjustment per patient size (includes targeted exams where dose is matched to clinical indication); or iterative reconstruction. COMPARISON: CT Head without contrast 06/13/2019 8:13 PM FINDINGS: Brain: There is no acute intracranial hemorrhage or mass effect. Moderate diffuse volume loss is within the range of normal for patient age. There are small vessel ischemic changes within the periventricular and subcortical white matter, but the normal grace-white matter delineation is maintained. Ventricles: Normal. No ventriculomegaly. Bones/joints: Unremarkable. No acute fracture. Sinuses: Visualized sinuses are unremarkable. No fluid levels. Mastoid air cells: Visualized mastoid air cells are well aerated. Soft tissues: There is right frontal soft tissue injury. IMPRESSION: No acute hemorrhage or calvarial fracture. Electronically signed by: Mary Dickens On 07/09/2019 08:38:49 AM
--- NOTE | 2019-07-09 09:07 | REP ---
Right shoulder: Two views. History: Injury in a fall. Findings: There is cortical irregularity at the surgical neck of the proximal humerus in this osteoporotic patient consistent with nondisplaced surgical neck fracture of the proximal humerus. Glenohumeral and acromioclavicular joints are normally aligned. Mild osteoarthritis is seen at the AC joint. Impression: Cortical irregularity consistent with nondisplaced fracture surgical neck right proximal humerus. Electronically Signed by Greg Mata MD 07/09/2019 08:59 A
[2019-07-09] MEDS ORDERED: CLON0.5T17 PO (09:19)
[2019-07-09] MEDS ORDERED: PANT40TA3 PO (09:25)
[2019-07-09] MEDS ORDERED: PERCOCET 5MG/325MG TAB PO ONE (09:30)
[2019-07-09] MEDS ORDERED: MECL-86 PO (09:32)
[2019-07-09] MEDS ORDERED: MILKSUS3 PO (09:40)
[2019-07-09] MEDS ORDERED: MORPHINE 2 MG/ML 1ML VIAL (J2270) IV PRN (10:00)
[2019-07-09] MEDS ORDERED: ONDANSETRON 4MG/2ML VIAL (J2405) IV ONE (10:00)
[2019-07-09 10:11] LABS: HEMATOCRIT 32.5 % (36.0-47.0); HEMOGLOBIN 9.7 g/dl (12.0-15.5); MEAN CORPUSCULAR HEMOGLOBIN 24.8 pg (27.0-33.0); MEAN CORPUSCULAR HGB CONC 29.8 g/dl (32.0-36.5); MEAN CORPUSCULAR VOLUME 83.1 fl (80.0-96.0); PLATELET COUNT, AUTOMATED 219 10^3/uL (150-450); RED BLOOD COUNT 3.91 10^6/uL (4.00-5.40)
[2019-07-09] MEDS ORDERED: ACETAMINOPHEN TAB 650MG DOSE (2X325MG) PO PRN (10:15)
[2019-07-09] MEDS ORDERED: MOM 30ML SUSPENSION UDC PO PRN (10:15)
[2019-07-09] MEDS ORDERED: DEXTROSE 50% 50 ML SYRINGE IV PRN (10:15)
[2019-07-09] MEDS ORDERED: MECLIZINE 25 MG TABLET PO PRN (10:15)
[2019-07-09] MEDS ORDERED: POLYVINYL ALCOHOL OPHTH SOLN 15 ML(LIQUITEARS) OU PRN (10:15)
[2019-07-09] MEDS ORDERED: GLUCAGON FOR INJ 1 MG VIAL (J1610) SC PRN (10:15)
[2019-07-09] MEDS ORDERED: GLUCOSE 4 GM CHEW TABLET PO PRN (10:15)
--- NOTE | 2019-07-09 10:29 | HPEPDOC ---
General Date of Admission 07/09/19 Date of Service: Jul 09, 2019 Chief Complaint The patient is a 84-year-old female admitted with a reason for visit of Head Injury From Fall/Arm Pain. Source: Patient Exam Limitations: No limitations Timing/Duration: 1-3 hours Severity: Mild Associated Symptoms: Mechanical fall History of Present Illness Patient is 84 years old female with past medical history of hyperlipidemia, hypertension, diabetes mellitus, rheumatoid arthritis, dementia presented hospital after mechanical fall. Patient stated that she stood up from the toilet bent over to put something in garbage and flopped over. Patient denied any loss of consciousness. In emergency room patient was found to have a hematoma of her right forehead area, head CT was negative for acute bleeding. Right shoulder x- ray showed Cortical irregularity consistent with nondisplaced fracture surgical neck right proximal humerus. Patient denied fever, chills, nausea, vomiting, chest pain, palpitations diarrhea or dysuria Home Medications Scheduled Aspirin (Aspirin) 81 Mg Tab.chew, 81 MG PO DAILY, (Reported) Atorvastatin Calcium (Atorvastatin Calcium) 10 Mg Tablet, 10 MG PO DAILY, (Reported) Calcium Carbonate/Vitamin D3 (Calcium 600-Vit D3 200 Tablet) 1 Each Tablet, 1 TAB PO BID, (Reported) Clonazepam (Clonazepam) 0.5 Mg Tab.rapdis, 0.5 MG PO TID, (Reported) Folic Acid (Folic Acid) 1 Mg Tablet, 1 MG PO DAILY, (Reported) Furosemide (Lasix) 40 Mg Tablet, 40 MG PO DAILY, (Reported) Gabapentin (Gabapentin) 300 Mg Capsule, 300 MG PO QHS, (Reported) Metaxalone (Metaxalone) 400 Mg Tablet, 400 MG PO TID, (Reported) Pantoprazole Sodium (Pantoprazole Sodium) 40 Mg Tablet.dr, 40 MG PO DAILY, (Reported) Rivastigmine (Exelon) 13.3 Mg/24 Hr Patch.td24, 13.3 MG TD QHS, (Reported) LEFT BICEP ALTERNATES ARMS EVERY NIGHT Sertraline HCl (Sertraline HCl) 100 Mg Tablet, 100 MG PO QHS, (Reported) Vit A/Vit C/Vit E/Zinc/Copper (Preservision Areds Tablet) 1 Each Tablet, 2 TAB PO DAILY, (Reported) Scheduled PRN Acetaminophen (Tylenol) 325 Mg Tablet, 650 MG PO Q4H PRN for PAIN, (Reported) Magnesium Hydroxide (Milk of Magnesia) 400 Mg/5 Ml Oral.susp, 2,400 MG PO DAILY PRN for CONSTIPATION, (Reported) Meclizine HCl (Meclizine HCl) 25 Mg Tablet, 25 MG PO TIDP PRN for DIZZINESS, (Reported) Polyvinyl Alcohol (Artificial Tears) 15 Ml Drops, 1 DROP OU Q4H PRN for DRY EYES, (Reported) Allergies Coded Allergies: Sulfa (Sulfonamide Antibiotics) (Verified Allergy, Unknown, 04/16/19) Lettuce (Verified Adverse Reaction, Mild, diarrhea, 04/16/19) Past Medical History Medical History Includes chronic anxiety, some mild dementia, hyperlipidemia, glucose intolerance, Sjogren's syndrome. She reports at one time they told her she had lupus, gastroesophageal reflux, vitamin D deficiency, subclinical hypothyroidism, essential tremor. Surgical History She has a remote history of a fibular fracture. She has had bilateral ovarian cysts operated on at the age of 14, also an appendectomy at that time. She has had a hysterectomy, cholecystectomy. She had colonoscopy with polyp removal. She had fracture of the left elbow which was repaired surgically. She has had D and C. She had a urethral tumor removed many years ago. She has had some other bladder surgery. She has had some abdominal hernia repairs. She had cataract surgery on the right and says her vision was not any better afterwards. Family History Father at age 54. Mother at the age of 96 of cancer. She had a daughter that at the age 41 of lung cancer, a son who at the age of 49 of esophageal cancer. Social History * Smoker: Denies Alcohol: Denies Drugs: denies She is . She resides at [facility] A-FIB History Current/History of A-Fib/PAF?: No Current PO Anticoag Therapy: No Review of Systems Constitutional: Denies: Chills, Fever Eyes: Denies: Pain, Vision change ENT: Denies: Head Aches Skin: Reports: Bruising (hematoma of right forehead); Denies: Rash Pulmonary: Denies: Dyspnea, Cough Cardiovascular: Denies: Chest Pain, Palpitations Gastrointestinal: Denies: Nausea, Vomiting Genitourinary: Denies: Dysuria, Frequency Hematologic: Reports: Bruising; Denies: Bleeding Excessively Endocrine: Denies: Polydipsia, Polyphagia Musculoskeletal: Reports: Arm Pain (right arm); Denies: Neck Pain, Back Pain Neurological: Denies: Weakness, Change in speech Psych: Reports: Mood Normal Physical Examination General Exam: Positive: Alert, Cooperative Eye Exam: Positive: PERRLA, EOMI ENT Exam: Negative: Atraumatic (right forehead hematoma) Neck Exam: Negative: Supple, JVD Chest Exam: Positive: Clear to auscultation Heart Exam: Positive: Rate Normal Telemetry: Positive: No significant arrhythmia Abdomen Exam: Positive: Normal bowel sounds Extremity Exam: Negative: Clubbing, Cyanosis Skin Exam: Positive: Nl turgor and temperature Neuro Exam: Positive: Cranial Nerves 3-12 NL, Other (significant essential tremors); Negative: Strength at 5/5 X4 ext (right arm in the sling) Psych Exam: Positive: Mental status NL Vital Signs Vital Signs Date Time Temp Pulse Resp B/P (MAP) Pulse Ox O2 Delivery O2 Flow Rate FiO2 07/09/19 10:00 72 167/96 (119) 93 Room Air 07/09/19 09:31 18 07/09/19 07:38 97.5 Laboratory Data Labs 24H Laboratory Tests 2 07/09/19 09:55: Nucleated Red Blood Cells % (auto) 0.0 07/09/19 09:56: CBC/BMP Laboratory Tests 07/09/19 09:55 Assessment/Plan Patient is 84 years old female with past medical history of hyperlipidemia, hypertension, diabetes mellitus, rheumatoid arthritis, dementia presented hospital after mechanical fall. Patient stated that she stood up from the toilet bent over to put something in garbage and flopped over. Patient denied any loss of consciousness. In emergency room patient was found to have a hematoma of her right forehead area, head CT was negative for acute bleeding. Also patient was found to have nondisplaced right humerus fracture Problems (1) Fall Status: Acute Problem Text: Accidental mechanical fall due to loss of balance CT head negative PT/OT evaluation Fall precaution (2) Diabetes Status: Chronic Problem Text: Diabetes diet, Insulin sliding scale (3) Fracture of humeral head, right, closed Status: Acute Problem Text: Orthopedic surgeon recommended sling Pain management Plan / VTE VTE Prophylaxis Ordered?: Yes CAROLINA SNYDER DO Jul 09, 2019 10:29
[2019-07-09] MEDS ORDERED: amLODIPine 10 MG TAB PO ONE (11:00)
[2019-07-09 11:15] VITALS: BP 146/84
[2019-07-09 11:20] LABS: BLOOD UREA NITROGEN 20 MG/DL (7-18); CALCIUM LEVEL 9.2 MG/DL (8.8-10.2); CARBON DIOXIDE LEVEL 28 MEQ/L (21-32); CHLORIDE LEVEL 103 MEQ/L (98-107); CK-MB VALUE MASS 2.9 NG/ML (<3.6); CPK CREATINE PHOSPHOKINASE 168 U/L (26-192); CREATININE FOR GFR 1.09 MG/DL (0.55-1.30); GLOMERULAR FILTRATION RATE 50.8 (>32); GLUCOSE, FASTING 109 MG/DL (70-100); MB/CK RELATIVE INDEX 1.73 (< OR =4); SODIUM LEVEL 141 MEQ/L (136-145); TROPONIN I < 0.02 NG/ML (< 0.10)
[2019-07-09] MEDS: HumaLOG INSULIN (NovoLOG) PER UNIT SC SCH ×2 (12:00→17:02)
[2019-07-09] MEDS: FOLIC ACID 1 MG TAB PO SCH (12:08)
[2019-07-09] MEDS: OCUVITE 1 TAB PO SCH (12:08)
[2019-07-09] MEDS: FUROSEMIDE 40 MG TAB PO SCH (12:08)
[2019-07-09] MEDS: PANTOPRAZOLE 40MG TAB (PROTONIX) PO SCH (12:08)
[2019-07-09] MEDS: ATORVASTATIN 10 MG TAB PO SCH (12:08)
[2019-07-09] MEDS: ASPIRIN 81 MG CHEW TABLET PO SCH (12:09)
[2019-07-09 14:20] VITALS: BP 121/65
[2019-07-09 20:00] VITALS: BP 133/72
[2019-07-09] MEDS ORDERED: HumaLOG INSULIN (NovoLOG) PER UNIT SC SCH (21:00)
[2019-07-09] MEDS ORDERED: SERTRALINE 100 MG TAB PO SCH (21:00)
[2019-07-09] MEDS ORDERED: GABAPENTIN 300 MG CAP PO SCH (21:00)
[2019-07-09] MEDS: HEPARIN SOD (PORCINE) 5000 UNITS/ML VIAL SC SCH (21:15)
[2019-07-10] MEDS: PERCOCET 5MG/325MG TAB PO PRN ×3 (00:08→12:34)
[2019-07-10 06:55] VITALS: BP 134/82
[2019-07-10 06:55] LABS: HEMATOCRIT 28.7 % (36.0-47.0); HEMOGLOBIN 8.6 g/dl (12.0-15.5); MEAN CORPUSCULAR HEMOGLOBIN 24.9 pg (27.0-33.0); MEAN CORPUSCULAR VOLUME 83.2 fl (80.0-96.0); PLATELET COUNT, AUTOMATED 205 10^3/uL (150-450); RED BLOOD COUNT 3.45 10^6/uL (4.00-5.40); WHITE BLOOD COUNT 5.3 10^3/uL (4.0-10.0)
[2019-07-10 07:16] LABS: CALCIUM LEVEL 8.9 MG/DL (8.8-10.2); CREATININE FOR GFR 1.07 MG/DL (0.55-1.30); GLOMERULAR FILTRATION RATE 51.9 (>32); MAGNESIUM LEVEL 2.1 MG/DL (1.8-2.4); POTASSIUM SERUM 3.6 MEQ/L (3.5-5.1)
[2019-07-10] MEDS: HumaLOG INSULIN (NovoLOG) PER UNIT SC SCH ×2 (07:30→11:50)
[2019-07-10] MEDS ORDERED: amLODIPine 10 MG TAB PO SCH (09:00)
[2019-07-10 09:12] VITALS: BP 134/82
[2019-07-10] MEDS: HEPARIN SOD (PORCINE) 5000 UNITS/ML VIAL SC SCH (09:12)
[2019-07-10] MEDS: OCUVITE 1 TAB PO SCH (09:12)
[2019-07-10] MEDS: ASPIRIN 81 MG CHEW TABLET PO SCH (09:12)
[2019-07-10] MEDS: ATORVASTATIN 10 MG TAB PO SCH (09:12)
[2019-07-10] MEDS: FUROSEMIDE 40 MG TAB PO SCH (09:13)
[2019-07-10] MEDS: FOLIC ACID 1 MG TAB PO SCH (09:13)
[2019-07-10] MEDS: PANTOPRAZOLE 40MG TAB (PROTONIX) PO SCH (09:13)
[2019-07-10] MEDS ORDERED: PERCOCET PO (11:11)
--- NOTE | 2019-07-10 12:41 | DSES ---
DATE OF ADMISSION: 07/09/2018 DATE OF DISCHARGE: 07/10/2019 HISTORY OF PRESENT ILLNESS: This is an 84-year-old female who presented to [facility] emergency department from [facility] assisted living after a mechanical fall. The patient did hit her head. She denied loss of consciousness. The patient was found to have a hematoma on her right forehead with a negative head CT for bleeding. Right shoulder x-ray proved positive for nondisplaced fracture of the right proximal humerus. HOSPITAL COURSE: The patient's pain was controlled. She did receive a one time amlodipine due to hypertension. This is most likely secondary to significant pain. The patient's pain has been well controlled with oxycodone and acetaminophen. The patient had been accepted to [facility] nursing [facility] due to recurrent falls and weakness in conjunction with progressive dementia. PHYSICAL EXAMINATION: Vital signs are stable. She is afebrile. HEENT: Neck is supple without lymphadenopathy or jugular venous distention (JVD). CARDIOVASCULAR: Heart rate and rhythm regular. PULMONARY: Lungs are clear. ABDOMEN: Soft, nontender. EXTREMITIES: Bilateral lower extremities are without any edema. GENERAL: The patient does have significant ecchymosis and swelling to the right orbit. She has a sling to the right arm. NEUROLOGIC: The patient is alert to self. She is vague in her responses. Daughter provides most of her history. ASSESSMENT: 1. Mechanical fall. 2. Right proximal humerus fracture, nondisplaced. 3. Right forehead hematoma. 4. Dementia. 5. Hyperlipidemia. 6. Chronic anxiety. 7. Hyperglycemia. 8. Sjogren's disease. PLAN: The patient will be discharged to [facility]. Diet is consistent carbohydrate, 2 gram sodium. Activity is as per physical therapy (PT) recommendations. She is to followup with primary care provider at the nursing facility. MEDICATIONS: - oxycodone with acetaminophen 5/325 mg one tablet by mouth every 6 hours as needed for pain - Tylenol 650 mg by mouth every 4 hours as needed for pain, maximum daily dose of 3 grams - aspirin 81 mg one daily - atorvastatin 10 mg daily - calcium with vitamin D3 one tablet by mouth twice a day - clonazepam 0.5 mg by mouth three times a day - folic acid 1 mg by mouth daily - furosemide 40 mg daily - gabapentin 300 mg by mouth at night - milk of magnesia 30 mL by mouth daily as needed for constipation - meclizine 25 mg one by mouth three times a day as needed for dizziness - metaxalone 400 mg by mouth three times a day - pantoprazole sodium 40 mg by mouth daily - artificial tears 15 mL one drop OU every 4 hours as needed for dry eyes - Exelon patch transdermal at night - sertraline 100 mg by mouth at night - PreserVision tablet two by mouth daily The patient is discharged in stable and satisfactory condition. At the time of discharge, the patient's daughter has no further questions. edited: 07/11/2019 0740 víctorf MTDD
[2019-07-10] MEDS ORDERED: RIVASTIGMINE TD SCH (21:00)
== END 2019-07-10 12:40 ==
LOC: M ED 07:25 → M ED INP 10:05 → INTOOBSV 10:05 → ENRESERVDT 10:41 → ENRESERVTM 10:41 → M MS5PR 11:15
PROVIDERS: ADMIT Internal Medicine; ATTEND Internal Medicine
DX: S00.83XA Contusion of other part of head, initial encounter (principal); S42.201A Unspecified fracture of upper end of right humerus, initial encounter for closed fracture; W19.XXXA Unspecified fall, initial encounter; Y92.091 Bathroom in other non-institutional residence as the place of occurrence of the external cause; Y93.9 Activity, unspecified; Y99.9 Unspecified external cause status; E78.49 Other hyperlipidemia; I10 Essential (primary) hypertension; E11.9 Type 2 diabetes mellitus without complications; M06.9 Rheumatoid arthritis, unspecified; F41.9 Anxiety disorder, unspecified; F03.90 Unspecified dementia, unspecified severity, without behavioral disturbance, psychotic disturbance, mood disturbance, and anxiety; K21.9 Gastro-esophageal reflux disease without esophagitis; M35.00 Sjogren syndrome, unspecified; E55.9 Vitamin D deficiency, unspecified; Z79.82 Long term (current) use of aspirin; Z79.899 Other long term (current) drug therapy; Z88.2 Allergy status to sulfonamides; Z91.81 History of falling
CPT/HCPCS: 36415; 70450; 72125; 73030; 80048; 81001; 82550; 82553; 83735; 84443; 84484; 85027; 96372; 96374; 96375; 97161; 97165; 97530; 97535; 99285; G0378; J2270; J2405

== ENCOUNTER → 2019-07-17 | Outpatient (REF) | payer MEDICARE, BC, OTHER, MEDICAID ==
[~2019-07-17] MED LIST changes: +ASPI1CHW3 PO; -ASPI81CH44 PO; +CLON0.5T17 PO; -MECL-68 PO; +MECL-86 PO; +MECL1TAB31 PO; +MILKSUS3 PO
[2019-07-17 12:20] LABS: HEMATOCRIT 32.2 % (36.0-47.0); HEMOGLOBIN 9.7 g/dl (12.0-15.5); MEAN CORPUSCULAR HEMOGLOBIN 25.3 pg (27.0-33.0); MEAN CORPUSCULAR HGB CONC 30.1 g/dl (32.0-36.5); MEAN CORPUSCULAR VOLUME 83.9 fl (80.0-96.0); PLATELET COUNT, AUTOMATED 277 10^3/uL (150-450); RED BLOOD COUNT 3.84 10^6/uL (4.00-5.40); WHITE BLOOD COUNT 5.8 10^3/uL (4.0-10.0)
[2019-07-17 13:03] LABS: CALCIUM LEVEL 8.9 MG/DL (8.8-10.2); CREATININE FOR GFR 1.05 MG/DL (0.55-1.30); POTASSIUM SERUM 3.9 MEQ/L (3.5-5.1)
== END ==
PROVIDERS: ATTEND Family Medicine
DX: D64.9 Anemia, unspecified (principal)

== ENCOUNTER → 2019-07-24 | Outpatient (REF) ==
[2019-07-24 10:16] LABS: HEMATOCRIT 33.1 % (36.0-47.0); HEMOGLOBIN 9.4 g/dl (12.0-15.5); MEAN CORPUSCULAR HEMOGLOBIN 24.2 pg (27.0-33.0); MEAN CORPUSCULAR HGB CONC 28.4 g/dl (32.0-36.5); MEAN CORPUSCULAR VOLUME 85.3 fl (80.0-96.0); PLATELET COUNT, AUTOMATED 274 10^3/uL (150-450); RED BLOOD COUNT 3.88 10^6/uL (4.00-5.40); WHITE BLOOD COUNT 4.3 10^3/uL (4.0-10.0)
[2019-07-24 11:01] LABS: CALCIUM LEVEL 8.7 MG/DL (8.8-10.2); CREATININE FOR GFR 1.01 MG/DL (0.55-1.30); GLOMERULAR FILTRATION RATE 55.5 (>32); POTASSIUM SERUM 3.9 MEQ/L (3.5-5.1)
== END ==
PROVIDERS: ATTEND Family Medicine
DX: D64.9 Anemia, unspecified (principal)

== ENCOUNTER 2019-08-15 00:59 | Observation (INO) | payer MEDICARE, BC, OTHER, MEDICAID ==
[~2019-08-15] VITALS: Ht 160 cm; Wt 61.9 kg
[~2019-08-15 00:59] MED LIST changes: -ARTIDRO2 OU
--- NOTE | 2019-08-15 01:52 | REPVR ---
PROCEDURE INFORMATION: Exam: CT Head Without Contrast Exam date and time: 08/15/2019 1:04 AM Age: 84 years old Clinical indication: Injury or trauma; Fall; Initial encounter; Concussion / head injury TECHNIQUE: Imaging protocol: Computed tomography of the head without contrast. Radiation optimization: All CT scans at this facility use at least one of these dose optimization techniques: automated exposure control; mA and/or kV adjustment per patient size (includes targeted exams where dose is matched to clinical indication); or iterative reconstruction. COMPARISON: CT Head without contrast 07/09/2019 7:45 AM FINDINGS: Brain: Generalized parenchymal atrophy and evidence of microvascular ischemic disease involving the periventricular and subcortical white matter bilaterally. Ventricles: Normal. No ventriculomegaly. Bones/joints: Unremarkable. No acute fracture. Sinuses: Visualized sinuses are unremarkable. No fluid levels. Mastoid air cells: Visualized mastoid air cells are well aerated. Soft tissues: Large frontal scalp hematoma. IMPRESSION: No acute intracranial pathology. Electronically signed by: Pete Fatima On 08/15/2019 01:51:57 AM
[2019-08-15] MEDS ORDERED: CLON0.5T2 PO (01:53)
[2019-08-15] MEDS ORDERED: ARTISOL2 OU (01:53)
[2019-08-15] MEDS ORDERED: OXYC1TAB23 PO ×2 (01:53)
[2019-08-15] MEDS ORDERED: MECL12.589 PO (01:53)
[2019-08-15] MEDS ORDERED: BISA10SU PR (01:53)
[2019-08-15] MEDS ORDERED: ACET-907 PO (01:53)
[2019-08-15] MEDS ORDERED: FLEEENE12 PR (01:53)
--- NOTE | 2019-08-15 02:13 | REPVR ---
PROCEDURE INFORMATION: Exam: CT Cervical Spine Without Contrast Exam date and time: 08/15/2019 1:04 AM Age: 84 years old Clinical indication: Neck pain; Patient HX: Fall; Additional info: Trauma TECHNIQUE: Imaging protocol: Computed tomography images of the cervical spine without contrast. Radiation optimization: All CT scans at this facility use at least one of these dose optimization techniques: automated exposure control; mA and/or kV adjustment per patient size (includes targeted exams where dose is matched to clinical indication); or iterative reconstruction. COMPARISON: CT Spine,cervical w/o contrast 07/09/2019 7:45 AM FINDINGS: Vertebrae: Osteopenia. No acute fracture. Normal alignment. Discs/Spinal canal/Neural foramina: Severe degenerative disc disease at C5-C6 and particularly C6-C7. Significant stenosis of the spinal canal and bilateral neural foramina at C6-C7. Left neural foraminal stenosis at C2-C3, C3-C4, and C5-C6. Mild right neural foraminal stenosis at C5-C6. Incidental note is made of spinal canal stenosis at T1-2 Soft tissues: Unremarkable. Lungs: Lung apices are normal. IMPRESSION: No acute fractures or spondylolisthesis. Electronically signed by: Pete Fatima On 08/15/2019 02:13:21 AM
--- NOTE | 2019-08-15 02:25 | REPVR ---
PROCEDURE INFORMATION: Exam: CT Lumbar Spine Without Contrast Exam date and time: 08/15/2019 1:09 AM Age: 84 years old Clinical indication: Injury or trauma; Fall; Initial encounter; Blunt trauma (contusions or hematomas) TECHNIQUE: Imaging protocol: Computed tomography images of the lumbar spine without contrast. Radiation optimization: All CT scans at this facility use at least one of these dose optimization techniques: automated exposure control; mA and/or kV adjustment per patient size (includes targeted exams where dose is matched to clinical indication); or iterative reconstruction. COMPARISON: CT Spine, lumbar w/o contrast 04/16/2019 9:34 PM FINDINGS: Vertebrae: Osteopenia. Stable compression deformity of L1. Stable mild anterolisthesis of L4 on L5, degenerative in nature. Discs/Spinal canal/Neural foramina: Significant stenosis of the spinal canal at T11-12 due to a large posterior ridge osteophyte. Extensive multilevel degenerative disease and facet hypertrophy. Stenosis of the spinal canal at L3-L4 and L4-L5. Severe bilateral neural foraminal stenosis at L4-L5. Sacrum/coccyx: Severely degenerated bilateral sacroiliac joints. Extensive sclerotic changes in the bilateral sacral ala possibly reflect healing insufficiency fractures. Gallbladder and bile ducts: Status post cholecystectomy. Vasculature: Atherosclerotic disease. Soft tissues: Unremarkable. IMPRESSION: Stable compression deformity of L1. Stable mild anterolisthesis of L4 on L5, degenerative in nature. Severely degenerated bilateral sacroiliac joints. Extensive sclerotic changes in the bilateral sacral ala possibly reflect healing insufficiency fractures. Electronically signed by: Pete Fatima On 08/15/2019 02:25:30 AM
[2019-08-15] MEDS ORDERED: ADACEL/BOOSTRIX VACCINE (DIPHTH/PERTUSS/ACELL/TETANUS)0.5ML SYR (90715) IM ONE (03:45)
[2019-08-15 04:20] LABS: BASO % 0.6 % (0.0-1.0); EOS # 0.1 10^3/uL (0.0-0.5); EOS % 1.6 % (0.0-3.0); HEMATOCRIT 34.4 % (36.0-47.0); HEMOGLOBIN 10.1 g/dl (12.0-15.5); LYMPH # 0.8 10^3/uL (1.5-5.0); LYMPH % 16.3 % (24.0-44.0); MEAN CORPUSCULAR HEMOGLOBIN 24.3 pg (27.0-33.0); MEAN CORPUSCULAR HGB CONC 29.4 g/dl (32.0-36.5); MEAN CORPUSCULAR VOLUME 82.9 fl (80.0-96.0); MONO # 0.4 10^3/uL (0.0-0.8); MONO % 8.3 % (0.0-5.0); NEUTROPHILS # 3.7 10^3/uL (1.5-8.5); NEUTROPHILS % 72.8 % (36.0-66.0); PLATELET COUNT, AUTOMATED 194 10^3/uL (150-450); RED BLOOD COUNT 4.15 10^6/uL (4.00-5.40); WHITE BLOOD COUNT 5.1 10^3/uL (4.0-10.0)
[2019-08-15] MEDS ORDERED: MORPHINE 2 MG/ML 1ML VIAL (J2270) IV ONE (04:30)
[2019-08-15 04:42] LABS: INR 1.06; PROTHROMBIN TIME 13.5 SECONDS (11.8-14.0)
[2019-08-15 04:43] LABS: PARTIAL THROMBOPLASTIN TIME 30.7 SECONDS (25.0-38.4)
[2019-08-15 04:54] LABS: ALBUMIN 3.8 GM/DL (3.2-5.2); ALT/SGPT 15 U/L (12-78); BILIRUBIN,DIRECT < 0.1 MG/DL (0.0-0.2); BILIRUBIN,TOTAL 0.2 MG/DL (0.2-1.0); BLOOD UREA NITROGEN 19 MG/DL (7-18); CARBON DIOXIDE LEVEL 28 MEQ/L (21-32); CHLORIDE LEVEL 103 MEQ/L (98-107); CK-MB VALUE MASS 2.6 NG/ML (<3.6); CPK CREATINE PHOSPHOKINASE 153 U/L (26-192); CREATININE FOR GFR 1.18 MG/DL (0.55-1.30); FREE T4 0.85 NG/DL (0.76-1.46); GLOMERULAR FILTRATION RATE 46.3 (>32); GLUCOSE, FASTING 116 MG/DL (70-100); POTASSIUM SERUM 4.3 MEQ/L (3.5-5.1); SODIUM LEVEL 141 MEQ/L (136-145); TOTAL PROTEIN 7.7 GM/DL (6.4-8.2); TROPONIN I < 0.02 NG/ML (< 0.10)
[2019-08-15] MEDS ORDERED: PERCOCET 5MG/325MG TAB PO ONE (07:30)
--- NOTE | 2019-08-15 07:52 | REP ---
Clinical: Trauma. Technique: AP and cross-table lateral views of the left tibia / fibula. Comparison: Ankle radiographs date 07/28/2012. Findings: Evidence for presumed old fracture of the medial malleolus. However overlying soft tissue swelling is suggested and superimposed acute injury cannot be excluded. Remainder of the tibia and fibula appear intact. Impression: Presumed old injury at the medial malleolus. However superimposed acute injury cannot be excluded. Electronically Signed by Luis Lewis MD 08/15/2019 07:43 A
--- NOTE | 2019-08-15 07:59 | REP ---
Clinical: Chest pain . Comparison: None . Findings: The mediastinum and cardiac silhouette are stable and within normal limits for portable technique. The lung baum are clear without acute consolidation, effusion, or pneumothorax. Skeletal structures are intact. Impression: No acute cardiopulmonary process appreciated. Electronically Signed by Luis Lewis MD 08/15/2019 07:50 A
--- NOTE | 2019-08-15 08:12 | REP ---
Clinical: Trauma. Technique: AP, lateral, bilateral oblique and cross-table lateral views of the right knee. Findings: Tricompartmental osteoarthritic degenerative changes are appreciated. No obvious acute fracture or dislocation identified. Impression: Tricompartmental degenerative changes. No obvious acute fracture. Electronically Signed by Luis Lewis MD 08/15/2019 08:03 A
[2019-08-15] MEDS ORDERED: BISACODYL 10 MG SUPP PR PRN (08:15)
[2019-08-15] MEDS ORDERED: MOM 30ML SUSPENSION UDC PO PRN (08:15)
[2019-08-15] MEDS ORDERED: FLEET ENEMA PR PRN (08:15)
[2019-08-15] MEDS ORDERED: POLYVINYL ALCOHOL OPHTH SOLN 15 ML(LIQUITEARS) OU PRN (08:15)
[2019-08-15] MEDS ORDERED: MECLIZINE 12.5 MG TAB PO PRN (08:15)
--- NOTE | 2019-08-15 10:22 | HPEPDOC ---
General Date of Admission Aug 15, 2019 at 01:00 Date of Service: Aug 15, 2019 Primary Care Physician: Hill Soria M.D. Attending Physician: GUS VILLEDA MD Chief Complaint The patient is a 84-year-old female admitted with a reason for visit of Falls Frequently. Source: Patient, Family Exam Limitations: Physical impairment History of Present Illness Patient is an 84-year-old who presented to the emergency room after a fall at [facility]. [facility] She initially was admitted to the assisted [facility] for rehabilitation after a fall in July caused a fractured right humerus. Patient's daughter says that she believes that the falls are most likely caused by the patient's anxiety saying that she feels very anxious while walking and some falling down. This latest fall, the patient hit her head and her right knee. Patient says she did not lose consciousness and did not feel dizzy preceding the fall. Patient has frequent falls and the bathroom after sitting on the toilet. Patient's been working with physical therapy at [facility] and also uses a walker however, she frequently forgets to put the brakes on her walker when she goes to stand up and has falls. Patient does not complain of dizziness or lightheadedness prior to her falls. She does not complain of any chest pain or palpitations also prior to her falls. Patient's biggest complaint right now is the pain in her right knee from a small abrasion from this fall and pain in her right head from the large swelling and bruising from this last fall. Patient is multiple bruises throughout her body secondary to her multiple falls, her thin skin, and baby aspirin. Patient does not feel ill. Home Medications Scheduled Acetaminophen (Tylenol) 325 Mg Tablet, 650 MG PO BID, (Reported) 1200, 1900 Aspirin (Aspirin) 81 Mg Tab.chew, 81 MG PO DAILY, (Reported) Atorvastatin Calcium (Atorvastatin Calcium) 10 Mg Tablet, 10 MG PO QHS, (Reported) Calcium Carbonate/Vitamin D3 (Calcium 600-Vit D3 200 Tablet) 1 Each Tablet, 1 TAB PO BID, (Reported) Clonazepam (Clonazepam) 0.5 Mg Tablet, 0.5 MG PO TID, (Reported) 0800, 1200, 1900 Folic Acid (Folic Acid) 1 Mg Tablet, 1 MG PO DAILY, (Reported) Furosemide (Lasix) 40 Mg Tablet, 40 MG PO DAILY, (Reported) Gabapentin (Gabapentin) 300 Mg Capsule, 300 MG PO QHS, (Reported) Metaxalone (Metaxalone) 400 Mg Tablet, 400 MG PO TID, (Reported) 0800, 1300, 1900 Oxycodone HCl/Acetaminophen (Oxycodone-Acetaminophen 5-325) 1 Each Tablet, 1 TAB PO DAILY, (Reported) GIVEN PRIOR TO THERAPY Pantoprazole Sodium (Pantoprazole Sodium) 40 Mg Tablet.dr, 40 MG PO DAILY, (Reported) Sertraline HCl (Sertraline HCl) 100 Mg Tablet, 100 MG PO QHS, (Reported) Vit A/Vit C/Vit E/Zinc/Copper (Preservision Areds Tablet) 1 Each Tablet, 2 TAB PO QHS, (Reported) Scheduled PRN Acetaminophen (Tylenol) 325 Mg Tablet, 650 MG PO Q4H PRN for PAIN / FEVER, (Reported) Bisacodyl (Bisacodyl) 10 Mg Supp.rect, 10 MG [place] DAILY PRN for CONSTIPATION, (Reported) Dextran 70/Hypromellose (Artificial Tears Eye Drops) 15 Ml Drops, 1 DROP OU Q4H PRN for DRY EYES, (Reported) Magnesium Hydroxide (Milk of Magnesia) 400 Mg/5 Ml Oral.susp, 15 ML PO DAILY PRN for CONSTIPATION, (Reported) Meclizine HCl (Meclizine HCl) 12.5 Mg Tablet, 12.5 MG PO Q8H PRN for VERTIGO/DIZZINESS, (Reported) Oxycodone HCl/Acetaminophen (Oxycodone-Acetaminophen 5-325) 1 Each Tablet, 1 TAB PO Q6H PRN for PAIN, (Reported) Sodium Phosphate,[place]-Dibasic (Fleet Enema) 133 Ml Enema, 1 SOFY [place] DAILY PRN for CONSTIPATION, (Reported) Allergies Coded Allergies: Sulfa (Sulfonamide Antibiotics) (Verified Allergy, Unknown, 04/16/19) Past Medical History Medical History Chronic anxiety, mild dementia, hyperlipidemia, glucose intolerance, Sjogren syndrome, GERD, vitamin D deficiency, subclinical hypothyroidism, essential tremor Surgical History Her most history of fibular fracture, bilateral ovarian cysts at the age of 14, appendectomy, hysterectomy, cholecystectomy, colonoscopy with polyp removal, surgically repaired fracture of left elbow, dilatation and curettage, urethral tumor removal, other bladder surgery, abdominal hernia repairs, cataract surgery in right eye Family History Father age 54, mother at age 96 of cancer. Daughter at 41 of lung cancer, a son age 49 of esophageal cancer Social History * Smoker: Denies Alcohol: Denies Drugs: denies Recent Travel/Sick Contacts: Denies: Recent travel Pets in the home: Dog(s), Cat(s) Psychosocial History: Anxiety, Dementia A-FIB/CHADSVASC A-FIB History Current/History of A-Fib/PAF?: No Review of Systems Constitutional: Denies: Fever, Malaise Eyes: Denies: Vision change ENT: Denies: Head Aches Skin: Reports: Bruising Pulmonary: Denies: Dyspnea, Cough Cardiovascular: Denies: Chest Pain, Palpitations Gastrointestinal: Denies: Nausea, Vomiting, Abdominal Pain, Diarrhea Genitourinary: Denies: Dysuria, Frequency Hematologic: Reports: Bruising Endocrine: Denies: Polydipsia Musculoskeletal: Reports: Shoulder Pain (secondary to humeral fracture), Arm Pain; Denies: Neck Pain Neurological: Reports: Weakness Psych: Reports: Anxiety Physical Examination General Exam: Positive: Alert, No Acute Distress Eye Exam: Positive: PERRLA ENT Exam: Negative: Atraumatic (large area of swelling and ecchymosis over the right eye.) Neck Exam: Negative: Supple, JVD, Lymphadenopathy Chest Exam: Positive: Clear to auscultation Heart Exam: Positive: Rate Normal, Normal S1, Normal S2 Abdomen Exam: Positive: Normal bowel sounds, Soft, Tenderness (mild); Negative: Hepatospenomegaly Extremity Exam: Positive: Edema (trace bilaterally), Normal pulses; Negative: Clubbing, Cyanosis Skin Exam: Positive: Nl turgor and temperature, Other skin issue (multiple bruises) Neuro Exam: Positive: Other (patient had equal therapeutic massage technician strength is 5 out of 5. Patient was able to move her toes on command. Due to patient's frequent falls, patient did not want to get out of bed or move very much during neurological exam however, she was able to move her upper extremities and lower extremities in the bed) Other physical findings Imaging: A chest x-ray was reported as no acute cardiopulmonary process. A noncontrast CT of the head was reported as no acute intracranial pathology. A noncontrast CT of the cervical spine was reported as no acute fractures or spondylolisthesis. A noncontrast CT of the lumbar spine was reported as stable compression deformity of L1, stable mild anterolisthesis of L4 on L5, degenerative in nature. Severely degenerated bilateral sacroiliac joints. Extensive sclerotic changes in the bilateral sacral ala possibly reflecting healing insufficiency fractures An x-ray of the tibia and fibula of the lower left leg was reported as presumed old injury at the medial malleolus however, superimposed acute injury cannot be excluded. A x-ray of the right knee with performed and was reported to show tricompartmental degenerative changes, no obvious acute fracture. Vital Signs Vital Signs Date Time Temp Pulse Resp B/P (MAP) Pulse Ox O2 Delivery O2 Flow Rate FiO2 08/15/19 09:44 97.4 72 16 150/69 (96) 95 Room Air Laboratory Data Labs 24H Laboratory Tests 2 08/15/19 04:08: Immature Granulocyte % (Auto) 0.4, Neutrophils (%) (Auto) 72.8H, Lymphocytes (%) (Auto) 16.3L, Monocytes (%) (Auto) 8.3H, Eosinophils (%) (Auto) 1.6, Basophils (%) (Auto) 0.6, Neutrophils # (Auto) 3.7, Lymphocytes # (Auto) 0.8L, Monocytes # (Auto) 0.4, Eosinophils # (Auto) 0.1, Basophils # (Auto) 0.0, Nucleated Red Blood Cells % (auto) 0.0, Prothrombin Time 13.5, Prothromb Time International Ratio 1.06, Activated Partial Thromboplast Time 30.7, Anion Gap 10, Glomerular Filtration Rate 46.3, Calcium Level 9.0, Total Bilirubin 0.2, Direct Bilirubin < 0.1, Aspartate Amino Transf (AST/SGOT) 20, Alanine Aminotransferase (ALT/SGPT) 15, Alkaline Phosphatase 128H, Total Creatine Kinase 153, Creatine Kinase MB 2.6, Creatine Kinase MB Relative Index 1.70, Troponin I < 0.02, Total Protein 7.7, Albumin 3.8, Albumin/Globulin Ratio 0.97L, Thyroid Stimulating Hormone (TSH) 3.620, Free Thyroxine 0.85 CBC/BMP Laboratory Tests 08/15/19 04:08 Assessment/Plan Patient is an 84-year-old female who presented to the emergency room after a fall at [facility] nursing [facility]. Patient is had multiple mechanical falls over the past few months to be secondary to deconditioning, weakness, and anxiety. Problems (1) Falls frequently Status: Acute Problem Text: Patient has had multiple falls at [facility]. We will keep the patient for observation overnight to see how she does. She will work with physical therapy and we will slightly discharged back to [facility] tomorrow. (2) Other chronic pain Problem Text: We will continue with the patient's current pain medications. (3) Knee abrasion Status: Acute Problem Text: Patient has a dressing on this wound. It was cleaned and dressed in the emergency room. We will keep the dressing on until tomorrow or the dres sing gets soiled. (4) Hypothyroid Status: Chronic Problem Text: Continue outpatient medications. (5) Dementia Status: Chronic Problem Text: Continue outpatient care (6) Hyperlipidemia Status: Chronic Problem Text: Continue outpatient medications Plan / VTE VTE Prophylaxis Ordered?: Yes (Lovenox 30 mg) Plan Advanced Directives: MOLST Form is available (full code) GME ATTESTATION GME ATTESTATION My faculty preceptor for this patient encounter was physically present during the encounter and was fully available. All aspects of the patient interview, examination, medical decision making process, and medical care plan development were reviewed and approved by the faculty preceptor. The faculty preceptor is aware and concurs with the plan as stated in the body of this note and will attest to such by his/her cosignature. ATTENDING NOTE I, Gus Villeda, have independently examined this patient and performed my own physical exam, as well as reviewed the documentation and edited where necessary. I have discussed in detail with the resident / student the findings and plan of treatment as documented by the resident / student and edited their note. I agree with their findings and treatment plan and have edited their documentation. I will continue to follow the patient during this hospital stay. JOHN REIS DO Aug 15, 2019 10:22 GUS VILLEDA MD Aug 15, 2019 12:54
[2019-08-15 10:31] VITALS: BP 139/68
[2019-08-15] MEDS: FOLIC ACID 1 MG TAB PO SCH (11:48)
[2019-08-15] MEDS: PANTOPRAZOLE 40MG TAB (PROTONIX) PO SCH (11:48)
[2019-08-15] MEDS: ASPIRIN 81 MG CHEW TABLET PO SCH (11:48)
[2019-08-15] MEDS: FUROSEMIDE 40 MG TAB PO SCH (11:48)
[2019-08-15] MEDS: clonazePAM 0.5 MG TAB PO SCH ×2 (11:48→19:05)
[2019-08-15] MEDS: PERCOCET 5MG/325MG TAB PO SCH (11:51)
[2019-08-15] MEDS: ENOXAPARIN 30 MG/0.3 ML SYR (J1650) SC SCH (11:52)
[2019-08-15] MEDS: ACETAMINOPHEN TAB 650MG DOSE (2X325MG) PO SCH ×2 (13:02→19:06)
[2019-08-15 14:00] VITALS: BP 122/70
[2019-08-15] MEDS: PERCOCET 5MG/325MG TAB PO PRN (16:35)
--- NOTE | 2019-08-15 20:09 | ECGEPIP ---
[facility] - ED Test Date: 2019-08-15 Pat Name: JASEN CLEMONS Department: Room: - Gender: Female Interventional Radiology Rn: CHEMA : 1935 Requested By: RASHI Clark Order Number: [id number] Reading MD: Karime Davies Measurements Intervals [place] Rate: 70 P: 60 WY: 191 QRS: -56 QRSD: 79 T: 30 QT: 408 QTc: 443 Interpretive Statements SINUS RHYTHM WITH SINUS ARRHYTHMIA LEFT ANTERIOR FASCICULAR BLOCK DELAYED R PROGRESSION SIMILAR 03/26/19 Electronically Signed on 08-15-2019 20:08:37 EST by Karime Davies
[2019-08-15] MEDS ORDERED: OCUVITE 1 TAB PO SCH (21:00)
[2019-08-15] MEDS ORDERED: SERTRALINE 100 MG TAB PO SCH (21:00)
[2019-08-15] MEDS ORDERED: GABAPENTIN 300 MG CAP PO SCH (21:00)
[2019-08-15] MEDS ORDERED: ATORVASTATIN 10 MG TAB PO SCH (21:00)
[2019-08-15 22:00] VITALS: BP 125/56
[2019-08-15] MEDS ORDERED: CALCIUM CARBONATE 500 MG CHEW U/D PO PRN (23:15)
[2019-08-16] MEDS: PERCOCET 5MG/325MG TAB PO PRN (03:42)
[2019-08-16 06:00] VITALS: BP 158/87
[2019-08-16 06:25] LABS: HEMATOCRIT 31.4 % (36.0-47.0); HEMOGLOBIN 9.2 g/dl (12.0-15.5); MEAN CORPUSCULAR HEMOGLOBIN 24.5 pg (27.0-33.0); MEAN CORPUSCULAR HGB CONC 29.3 g/dl (32.0-36.5); MEAN CORPUSCULAR VOLUME 83.5 fl (80.0-96.0); PLATELET COUNT, AUTOMATED 215 10^3/uL (150-450); RED BLOOD COUNT 3.76 10^6/uL (4.00-5.40); WHITE BLOOD COUNT 5.7 10^3/uL (4.0-10.0)
[2019-08-16 06:46] LABS: CREATININE FOR GFR 1.03 MG/DL (0.55-1.30); GLOMERULAR FILTRATION RATE 54.2 (>32); POTASSIUM SERUM 3.8 MEQ/L (3.5-5.1)
[2019-08-16] MEDS: ENOXAPARIN 30 MG/0.3 ML SYR (J1650) SC SCH (09:09)
[2019-08-16] MEDS: PERCOCET 5MG/325MG TAB PO SCH (09:09)
[2019-08-16] MEDS: FOLIC ACID 1 MG TAB PO SCH (09:10)
[2019-08-16] MEDS: ASPIRIN 81 MG CHEW TABLET PO SCH (09:10)
[2019-08-16] MEDS: clonazePAM 0.5 MG TAB PO SCH ×2 (09:10→11:48)
[2019-08-16] MEDS: PANTOPRAZOLE 40MG TAB (PROTONIX) PO SCH (09:10)
[2019-08-16] MEDS: FUROSEMIDE 40 MG TAB PO SCH (09:10)
--- NOTE | 2019-08-16 11:02 | DS.PDOC ---
Discharge Summary General Date of Admission Aug 15, 2019 at 01:00 Date of Discharge 08/16/2019 Primary Care Physician: Hill Soria M.D. Attending Physician: LIZZIE VILLEDA MD Discharge Summary PROCEDURES PERFORMED DURING STAY: None. ADMITTING/DISCHARGE DIAGNOSES: 1. Falls frequently 2. Other chronic pain 3. Knee abrasion 4. Hypothyroidism 5. Dementia 6. Hyperlipidemia COMPLICATIONS/CHIEF COMPLAINT: Fall HISTORY OF PRESENT ILLNESS/HOSPITAL COURSE: is an 84-year-old female presented to the emergency room after a fall [facility] which causes her to hit her head and causing large swelling on her forehead. Patient has had multiple falls over the past few months. She had a fall about one month ago which caused a broken humerus on the right side. Patient and her daughter wanted to have her admitted for observation. Head CT, and cervical spine CT, lumbar spine CT, right knee x-ray and left tib-fib x-rays were negative for acute fractures. Patient's pain was controlled with her pain medication from home. After 24 hours of observation, no further issues were discovered for secondary from her fall and the patient was seen ready to be discharged back to [facility] continue with her physical therapy. DISCHARGE MEDICATIONS: Please see below. ALLERGIES: Please see below. PHYSICAL EXAMINATION ON DISCHARGE: Vitals: (see below) General: Alert and oriented female who was laying in bed when I walked into the room. Patient does not appear to be in acute distress. HEENT: Large area of swelling and ecchymosis over the right for head with ecchymosis surrounding the right eye. No signs of active bleeding. Neck: No JVD or lymphadenopathy Cardiac: RRR, No murmurs Pulm: Clear to auscultation b/l. No wheezing, rhonchi Abd: Mild tenderness throughout the abdomen Ext: 1+ pitting edema bilateral lower extremities LABORATORY DATA: Please see below. IMAGING: A chest x-ray performed on 08/15/2019 was reported as no acute cardiopulmonary process. A noncontrast CT of the head performed on 08/15/2019 was reported as no acute intracranial pathology. A new noncontrast CT of the cervical spine performed on 08/15/2019 was reported as no acute fractures or spondylolisthesis. A noncontrast CT of the lumbar spine performed on 08/15/2019 was reported as stable compression deformity of L1, stable mild anterior listhesis of L4 on L5, degenerative nature. Severely degenerated bilateral sacroiliac joints. Extensive sclerotic changes in the bilateral sacral ala possibly reflecting healing insufficiency fractures. X-ray of the tibia and fibula of the left lower leg performed on 08/15/2019 was reported as presumed old injury at the medial malleolus however, superimposed acute injury cannot be excluded. X-ray of the right knee performed on 08/15/2019 was reported to show tricompartmental degenerative changes, no obvious fracture. PROGNOSIS: Fair ACTIVITY: As tolerated. DIET: Cardiac diet DISCHARGE PLAN/DISPOSITION: Discharge back to [facility] for continued rehabilitation DISCHARGE INSTRUCTIONS: 1. Continue physical therapy at [facility]. 2. Follow-up with primary provider at [facility]. 3. Return to the ER if you experience any problems DISCHARGE CONDITION: Stable. TIME SPENT ON DISCHARGE: 20 minutes. Vital Signs/I&Os Vital Signs Date Time Temp Pulse Resp B/P (MAP) Pulse Ox O2 Delivery O2 Flow Rate FiO2 08/16/19 09:39 18 08/16/19 06:00 97.6 84 158/87 (110) 94 Room Air I&O- Last 24 Hours up to 6 AM 08/16/19 06:00 Intake Total 700 ml Output Total 1100 ml Balance -400 ml Laboratory Data Labs 24H Laboratory Tests 2 08/16/19 05:39: Nucleated Red Blood Cells % (auto) 0.0, Anion Gap 7L, Glomerular Filtration Rate 54.2, Calcium Level 9.0 CBC/BMP Laboratory Tests 08/16/19 05:39 Discharge Medications Scheduled Acetaminophen (Tylenol) 325 Mg Tablet, 650 MG PO BID, (Reported) 1200, 1900 Aspirin (Aspirin) 81 Mg Tab.chew, 81 MG PO DAILY, (Reported) Atorvastatin Calcium (Atorvastatin Calcium) 10 Mg Tablet, 10 MG PO QHS, (Reported) Calcium Carbonate/Vitamin D3 (Calcium 600-Vit D3 200 Tablet) 1 Each Tablet, 1 TAB PO BID, (Reported) Clonazepam (Clonazepam) 0.5 Mg Tablet, 0.5 MG PO TID, (Reported) 0800, 1200, 1900 Folic Acid (Folic Acid) 1 Mg Tablet, 1 MG PO DAILY, (Reported) Furosemide (Lasix) 40 Mg Tablet, 40 MG PO DAILY, (Reported) Gabapentin (Gabapentin) 300 Mg Capsule, 300 MG PO QHS, (Reported) Metaxalone (Metaxalone) 400 Mg Tablet, 400 MG PO TID, (Reported) 0800, 1300, 1900 Oxycodone HCl/Acetaminophen (Oxycodone-Acetaminophen 5-325) 1 Each Tablet, 1 TAB PO DAILY, (Reported) GIVEN PRIOR TO THERAPY Pantoprazole Sodium (Pantoprazole Sodium) 40 Mg Tablet.dr, 40 MG PO DAILY, (Reported) Sertraline HCl (Sertraline HCl) 100 Mg Tablet, 100 MG PO QHS, (Reported) Vit A/Vit C/Vit E/Zinc/Copper (Preservision Areds Tablet) 1 Each Tablet, 2 TAB P O QHS, (Reported) Scheduled PRN Acetaminophen (Tylenol) 325 Mg Tablet, 650 MG PO Q4H PRN for PAIN / FEVER, (Reported) Bisacodyl (Bisacodyl) 10 Mg Supp.rect, 10 MG [place] DAILY PRN for CONSTIPATION, (Reported) Dextran 70/Hypromellose (Artificial Tears Eye Drops) 15 Ml Drops, 1 DROP OU Q4H PRN for DRY EYES, (Reported) Magnesium Hydroxide (Milk of Magnesia) 400 Mg/5 Ml Oral.susp, 15 ML PO DAILY PRN for CONSTIPATION, (Reported) Meclizine HCl (Meclizine HCl) 12.5 Mg Tablet, 12.5 MG PO Q8H PRN for VERTIGO/DIZZINESS, (Reported) Oxycodone HCl/Acetaminophen (Oxycodone-Acetaminophen 5-325) 1 Each Tablet, 1 TAB PO Q6H PRN for PAIN, (Reported) Sodium Phosphate,[place]-Dibasic (Fleet Enema) 133 Ml Enema, 1 SOFY [place] DAILY PRN for CONSTIPATION, (Reported) Allergies Coded Allergies: Sulfa (Sulfonamide Antibiotics) (Verified Allergy, Unknown, 04/16/19) GME ATTESTATION GME ATTESTATION My faculty preceptor for this patient encounter was physically present during the encounter and was fully available. All aspects of the patient interview, examination, medical decision making process, and medical care plan development were reviewed and approved by the faculty preceptor. The faculty preceptor is aware and concurs with the plan as stated in the body of this note and will attest to such by his/her cosignature. ATTENDING NOTE I, Vijesh Villeda, have independently examined this patient and performed my own physical exam, as well as reviewed the documentation and edited where necessary. I have discussed in detail with the resident / student the findings and plan of treatment as documented by the resident / student and edited their note. I agree with their findings and treatment plan and have edited their documentation. I will continue to follow the patient during this hospital stay. JOHN REIS DO Aug 16, 2019 11:02 LIZZIE VILLEDA MD Aug 16, 2019 12:13
[2019-08-16] MEDS: ACETAMINOPHEN TAB 650MG DOSE (2X325MG) PO SCH (11:49)
[2019-08-16] MEDS ORDERED: PERCOCET 5MG/325MG TAB PO ONE (12:00)
== END 2019-08-16 12:31 ==
LOC: M ED 00:59 → M ED INP 01:00 → ENRESERVTM 09:31 → ENRESERVDT 09:31 → M MSPAV 10:31
PROVIDERS: ADMIT Internal Medicine; ATTEND Internal Medicine
DX: R29.6 Repeated falls (principal); S00.83XA Contusion of other part of head, initial encounter; S80.211A Abrasion, right knee, initial encounter; M17.11 Unilateral primary osteoarthritis, right knee; W19.XXXA Unspecified fall, initial encounter; Y92.128 Other place in nursing home as the place of occurrence of the external cause; S42.301D Unspecified fracture of shaft of humerus, right arm, subsequent encounter for fracture with routine healing; G89.29 Other chronic pain; E03.9 Hypothyroidism, unspecified; F03.90 Unspecified dementia, unspecified severity, without behavioral disturbance, psychotic disturbance, mood disturbance, and anxiety; E78.5 Hyperlipidemia, unspecified; F41.9 Anxiety disorder, unspecified; M35.00 Sjogren syndrome, unspecified; K21.9 Gastro-esophageal reflux disease without esophagitis; E55.9 Vitamin D deficiency, unspecified; G25.0 Essential tremor; R73.02 Impaired glucose tolerance (oral); Z91.81 History of falling; Z79.899 Other long term (current) drug therapy; Z79.82 Long term (current) use of aspirin; Z79.891 Long term (current) use of opiate analgesic; Z88.2 Allergy status to sulfonamides; Z23 Encounter for immunization
CPT/HCPCS: 36415; 70450; 71045; 72125; 72131; 73564; 73590; 80048; 80076; 82550; 82553; 84439; 84443; 84484; 85025; 85027; 85610; 85730; 90471; 90715; 93005; 93041; 94760; 96372; 96374; 99285; G0378; J1650; J2270

== ENCOUNTER → 2019-08-17 | Outpatient (REF) | payer MEDICARE, BC, OTHER, MEDICAID ==
[~2019-08-17] MED LIST changes: +ARTISOL2 OU; +BISA10SU PR; +FLEEENE12 PR; +MECL12.589 PO; +OXYC1TAB23 PO
== END ==
PROVIDERS: ATTEND Family Medicine
DX: D64.9 Anemia, unspecified (principal); E11.9 Type 2 diabetes mellitus without complications

== ENCOUNTER → 2019-08-23 | Outpatient (REF) | payer MEDICARE, BC, OTHER, MEDICAID ==
[2019-08-23 09:42] LABS: HEMATOCRIT 31.8 % (36.0-47.0); HEMOGLOBIN 9.6 g/dl (12.0-15.5); MEAN CORPUSCULAR HEMOGLOBIN 25.4 pg (27.0-33.0); MEAN CORPUSCULAR HGB CONC 30.2 g/dl (32.0-36.5); MEAN CORPUSCULAR VOLUME 84.1 fl (80.0-96.0); PLATELET COUNT, AUTOMATED 240 10^3/uL (150-450); RED BLOOD COUNT 3.78 10^6/uL (4.00-5.40); WHITE BLOOD COUNT 4.2 10^3/uL (4.0-10.0)
[2019-08-23 10:10] LABS: CALCIUM LEVEL 8.9 MG/DL (8.8-10.2); CREATININE FOR GFR 1.06 MG/DL (0.55-1.30); GLOMERULAR FILTRATION RATE 52.4 (>32); POTASSIUM SERUM 4.5 MEQ/L (3.5-5.1)
== END ==
PROVIDERS: ATTEND Physician Assistant
DX: D64.9 Anemia, unspecified (principal)

== ENCOUNTER → 2019-08-30 | Outpatient (REF) | payer MEDICARE, BC, OTHER, MEDICAID ==
[2019-08-30 11:26] LABS: HEMATOCRIT 32.1 % (36.0-47.0); HEMOGLOBIN 9.5 g/dl (12.0-15.5); MEAN CORPUSCULAR HGB CONC 29.6 g/dl (32.0-36.5); MEAN CORPUSCULAR VOLUME 84.5 fl (80.0-96.0); PLATELET COUNT, AUTOMATED 265 10^3/uL (150-450); WHITE BLOOD COUNT 5.1 10^3/uL (4.0-10.0)
[2019-08-30 11:47] LABS: CALCIUM LEVEL 9.5 MG/DL (8.8-10.2); CREATININE FOR GFR 1.22 MG/DL (0.55-1.30); GLOMERULAR FILTRATION RATE 44.6 (>32); POTASSIUM SERUM 4.1 MEQ/L (3.5-5.1)
== END ==
PROVIDERS: ATTEND Physician Assistant
DX: D64.9 Anemia, unspecified (principal)

== ENCOUNTER → 2019-09-06 | Outpatient (REF) | payer MEDICARE, BC, OTHER, MEDICAID ==
[2019-09-06 12:41] LABS: HEMATOCRIT 33.6 % (36.0-47.0); MEAN CORPUSCULAR HEMOGLOBIN 25.4 pg (27.0-33.0); MEAN CORPUSCULAR HGB CONC 29.8 g/dl (32.0-36.5); MEAN CORPUSCULAR VOLUME 85.5 fl (80.0-96.0); PLATELET COUNT, AUTOMATED 224 10^3/uL (150-450); RED BLOOD COUNT 3.93 10^6/uL (4.00-5.40); WHITE BLOOD COUNT 4.3 10^3/uL (4.0-10.0)
[2019-09-06 13:08] LABS: CALCIUM LEVEL 8.7 MG/DL (8.8-10.2); CREATININE FOR GFR 1.18 MG/DL (0.55-1.30); GLOMERULAR FILTRATION RATE 46.3 (>32); POTASSIUM SERUM 4.3 MEQ/L (3.5-5.1)
== END ==
PROVIDERS: ATTEND Physician Assistant
DX: D64.9 Anemia, unspecified (principal)

== ENCOUNTER → 2019-09-11 | Outpatient (REF) | payer MEDICARE, BC, OTHER, MEDICAID ==
[2019-09-11 11:57] LABS: HEMATOCRIT 31.5 % (36.0-47.0); HEMOGLOBIN 9.5 g/dl (12.0-15.5); MEAN CORPUSCULAR HEMOGLOBIN 25.5 pg (27.0-33.0); MEAN CORPUSCULAR HGB CONC 30.2 g/dl (32.0-36.5); MEAN CORPUSCULAR VOLUME 84.7 fl (80.0-96.0); PLATELET COUNT, AUTOMATED 194 10^3/uL (150-450); RED BLOOD COUNT 3.72 10^6/uL (4.00-5.40); WHITE BLOOD COUNT 3.6 10^3/uL (4.0-10.0)
[2019-09-11 12:29] LABS: CREATININE FOR GFR 1.08 MG/DL (0.55-1.30); GLOMERULAR FILTRATION RATE 51.3 (>32); POTASSIUM SERUM 4.2 MEQ/L (3.5-5.1)
== END ==
PROVIDERS: ATTEND Physician Assistant
DX: D64.9 Anemia, unspecified (principal)

== ENCOUNTER → 2019-10-15 | Outpatient (REF) | payer MEDICARE, BC, OTHER, MEDICAID ==
[~2019-10-15] MED LIST changes: +CYCL-707 PO; -CYCL10TA PO
[2019-10-15 12:14] LABS: HEMATOCRIT 33.7 % (36.0-47.0); HEMOGLOBIN 10.3 g/dl (12.0-15.5); MEAN CORPUSCULAR HEMOGLOBIN 26.6 pg (27.0-33.0); MEAN CORPUSCULAR HGB CONC 30.6 g/dl (32.0-36.5); MEAN CORPUSCULAR VOLUME 87.1 fl (80.0-96.0); PLATELET COUNT, AUTOMATED 208 10^3/uL (150-450); RED BLOOD COUNT 3.87 10^6/uL (4.00-5.40); WHITE BLOOD COUNT 4.3 10^3/uL (4.0-10.0)
[2019-10-15 12:31] LABS: CREATININE FOR GFR 1.21 MG/DL (0.55-1.30); POTASSIUM SERUM 4.2 MEQ/L (3.5-5.1)
== END ==
PROVIDERS: ATTEND Physician Assistant
DX: D64.9 Anemia, unspecified (principal)

== ENCOUNTER → 2019-10-16 | Outpatient (REF) | payer MEDICARE, BC, OTHER, MEDICAID ==
[2019-10-16 12:28] LABS: BASO % 0.6 % (0.0-1.0); EOS # 0.1 10^3/uL (0.0-0.5); EOS % 1.5 % (0.0-3.0); HEMATOCRIT 32.6 % (36.0-47.0); HEMOGLOBIN 9.8 g/dl (12.0-15.5); LYMPH # 1.1 10^3/uL (1.5-5.0); LYMPH % 24.6 % (24.0-44.0); MEAN CORPUSCULAR HEMOGLOBIN 26.1 pg (27.0-33.0); MEAN CORPUSCULAR HGB CONC 30.1 g/dl (32.0-36.5); MEAN CORPUSCULAR VOLUME 86.9 fl (80.0-96.0); MONO # 0.5 10^3/uL (0.0-0.8); MONO % 11.7 % (0.0-5.0); NEUTROPHILS # 2.8 10^3/uL (1.5-8.5); NEUTROPHILS % 61.4 % (36.0-66.0); PLATELET COUNT, AUTOMATED 201 10^3/uL (150-450); RED BLOOD COUNT 3.75 10^6/uL (4.00-5.40); WHITE BLOOD COUNT 4.6 10^3/uL (4.0-10.0)
[2019-10-16 13:03] LABS: ALBUMIN 3.6 GM/DL (3.2-5.2); ALT/SGPT 14 U/L (12-78); BILIRUBIN,TOTAL 0.2 MG/DL (0.2-1.0); BLOOD UREA NITROGEN 17 MG/DL (7-18); CALCIUM LEVEL 9.2 MG/DL (8.8-10.2); CARBON DIOXIDE LEVEL 30 MEQ/L (21-32); CHLORIDE LEVEL 106 MEQ/L (98-107); CK-MB VALUE MASS 2.5 NG/ML (<3.6); CPK CREATINE PHOSPHOKINASE 92 U/L (26-192); CREATININE FOR GFR 1.13 MG/DL (0.55-1.30); GLOMERULAR FILTRATION RATE 48.7 (>32); GLUCOSE, FASTING 91 MG/DL (70-100); MB/CK RELATIVE INDEX 2.72 (< OR =4); POTASSIUM SERUM 4.3 MEQ/L (3.5-5.1); SODIUM LEVEL 141 MEQ/L (136-145); TOTAL PROTEIN 7.1 GM/DL (6.4-8.2); TROPONIN I < 0.02 NG/ML (< 0.10)
== END ==
PROVIDERS: ATTEND Family Medicine
DX: R42 Dizziness and giddiness (principal); Z79.899 Other long term (current) drug therapy

== ENCOUNTER → 2019-10-16 | Outpatient (CLI) | payer MEDICARE, BC, OTHER, MEDICAID ==
--- NOTE | 2019-10-16 14:42 | REP ---
CT BRAIN WITHOUT CONTRAST: CT brain performed without IV contrast. Coronal reconstruction images are performed. Comparison 08/15/2019. There is mild atrophy. There is no midline shift or mass effect. Astorga-white differentiation is well maintained. There are mild chronic periventricular small vessel ischemic changes, stable. No acute intracranial hemorrhage or extra-axial fluid collection is seen. Vascular calcifications are seen in the carotid siphons. IMPRESSION: Chronic changes are stable compared to 08/15/2019 exam. No acute intracranial process. Electronically Signed by Grupo Astorga MD 10/16/2019 03:33 P
== END ==
LOC: M RAD 13:46
PROVIDERS: ATTEND Physician Assistant
DX: R42 Dizziness and giddiness (principal); R26.89 Other abnormalities of gait and mobility; Z79.899 Other long term (current) drug therapy; R53.1 Weakness; Z79.82 Long term (current) use of aspirin

== ENCOUNTER → 2019-11-05 | Outpatient (REF) | payer MEDICARE, BC, OTHER, MEDICAID ==
[2019-11-05 15:37] LABS: APPEARANCE, URINE TURBID (CLEAR); BACTERIA, URINE AUTO 2+ (NEGATIVE); BILIRUBIN, URINE AUTO NEGATIVE (NEGATIVE); BLOOD, URINE BLOOD 2+ (NEGATIVE); COLOR, URINE YELLOW (YELLOW); GLUCOSE, URINE (UA) AUTO NEGATIVE (NEGATIVE); KETONE, URINE AUTO NEGATIVE (NEGATIVE); LEUKOCYTE ESTERASE, URINE AUTO 3+ (NEGATIVE); NITRITE, URINE AUTO NEGATIVE (NEGATIVE); PROTEIN, URINE AUTO 2+ mg/dL (NEGATIVE); RBC, URINE AUTO 70 /HPF (0-3); RENAL EPITHELIAL CELLS 2 /HPF; SPECIFIC GRAVITY URINE AUTO 1.013 (1.002-1.035); SQUAMOUS EPITHELIAL CELL UR AU 2 /HPF (0-6); UROBILINOGEN, URINE AUTO 0.2 mg/dL (0.0-2.0); WBC, URINE AUTO TNTC /HPF (0-3)
== END ==
PROVIDERS: ATTEND Physician Assistant
DX: R30.0 Dysuria (principal)

== ENCOUNTER → 2019-11-20 | Outpatient (REF) ==
[~2019-11-20] MED LIST changes: -ASPI81TA85 PO; +ASPI81TA86 PO; -CALC600T3 PO; +CALC600T86 PO; +GABA-282 PO; -GABA-843 PO; -MECL12.589 PO; +MECL12.590 PO; +PANT40TA29 PO; -PANT40TA3 PO
== END ==
PROVIDERS: ATTEND Internal Medicine
DX: Z03.818 Encounter for observation for suspected exposure to other biological agents ruled out (principal)

== ENCOUNTER → 2020-01-01 | Outpatient (REF) | payer MEDICARE, BC, OTHER, MEDICAID ==
[~2020-01-01] MED LIST changes: +ASPI81TA85 PO; -ASPI81TA86 PO; +CALC600T3 PO; -CALC600T86 PO; -GABA-282 PO; +GABA-843 PO; +MECL12.589 PO; -MECL12.590 PO; -PANT40TA29 PO; +PANT40TA3 PO
== END ==
PROVIDERS: ATTEND Physician Assistant
DX: G50.1 Atypical facial pain (principal); K08.89 Other specified disorders of teeth and supporting structures

== ENCOUNTER → 2020-01-17 | Outpatient (REF) | payer MEDICARE, BC, OTHER, MEDICAID ==
--- NOTE | 2020-01-17 23:42 | REPPI ---
REASON: Pain after trauma. AP and lateral views of each wrist were obtained. A trauma series consists of four views each. Limited two-view examination cannot rule out a fracture. Limited two-view examination of the left wrist shows evidence to suggest a triquetral fracture. There are degenerative changes, as well. Other fractures cannot be ruled out due to exam limitations. Limited two-view examination of the right wrist shows degenerative changes and shows no gross fracture; however, a fracture cannot be ruled out. Electronically Signed by Thaddeus Morales DO 01/18/2020 11:23 A
== END ==
PROVIDERS: ATTEND Family Medicine
DX: M24.131 Other articular cartilage disorders, right wrist (principal); M24.132 Other articular cartilage disorders, left wrist; M25.531 Pain in right wrist; M25.532 Pain in left wrist

== ENCOUNTER → 2020-01-18 | Outpatient (REF) | payer MEDICARE, BC, OTHER, MEDICAID ==
--- NOTE | 2020-01-19 08:17 | REPPI ---
RIGHT TOES: Three views of the right toes are performed with special attention paid to the 5th toe. The patient has 5th toe pain after a fall. There does appear to be a nondisplaced fracture of the medial corner of the base of the 5th proximal phalanx. I see no other evidence of acute fracture or dislocation. There is mild diffuse narrowing of interphalangeal joints. Electronically Signed by Grupo Astorga MD 01/21/2020 09:57 A
== END ==
PROVIDERS: ATTEND Family Medicine
DX: S62.645A Nondisplaced fracture of proximal phalanx of left ring finger, initial encounter for closed fracture (principal); X58.XXXA Exposure to other specified factors, initial encounter; Y92.89 Other specified places as the place of occurrence of the external cause; Y93.89 Activity, other specified; Y99.8 Other external cause status

== ENCOUNTER → 2020-02-12 | Outpatient (REF) | payer MEDICARE, BC, OTHER, MEDICAID ==
[~2020-02-12] MED LIST changes: -ASPI81TA85 PO; +ASPI81TA86 PO; -CALC600T3 PO; +CALC600T86 PO; +PANT40TA29 PO; -PANT40TA3 PO
[2020-04-07 21:57] LABS: HEMATOCRIT 33.1 % (36.0-47.0); HEMOGLOBIN 10.2 g/dl (12.0-15.5); MEAN CORPUSCULAR HEMOGLOBIN 28.7 pg (27.0-33.0); MEAN CORPUSCULAR HGB CONC 30.8 g/dl (32.0-36.5); PLATELET COUNT, AUTOMATED 190 10^3/uL (150-450); RED BLOOD COUNT 3.56 10^6/uL (4.00-5.40); WHITE BLOOD COUNT 5.3 10^3/uL (4.0-10.0)
[2020-04-08 03:55] LABS: ALBUMIN 3.9 GM/DL (3.2-5.2); BILIRUBIN,TOTAL 0.2 MG/DL (0.2-1.0); CREATININE FOR GFR 1.45 MG/DL (0.55-1.30); GLOMERULAR FILTRATION RATE 36.4 (>32); POTASSIUM SERUM 4.4 MEQ/L (3.5-5.1); THYROID STIMULATING HORMONE 3.63 uIU/ML (0.358-3.740); TOTAL PROTEIN 7.6 GM/DL (6.4-8.2)
== END ==
PROVIDERS: ATTEND Internal Medicine
DX: D64.9 Anemia, unspecified (principal)

== ENCOUNTER → 2020-04-15 | Outpatient (REF) | payer MEDICARE, BC, OTHER, MEDICAID ==
[2020-04-15 11:51] LABS: HEMATOCRIT 33.9 % (36.0-47.0); HEMOGLOBIN 10.2 g/dl (12.0-15.5); MEAN CORPUSCULAR HEMOGLOBIN 27.7 pg (27.0-33.0); MEAN CORPUSCULAR HGB CONC 30.1 g/dl (32.0-36.5); MEAN CORPUSCULAR VOLUME 92.1 fl (80.0-96.0); PLATELET COUNT, AUTOMATED 214 10^3/uL (150-450); RED BLOOD COUNT 3.68 10^6/uL (4.00-5.40); WHITE BLOOD COUNT 4.3 10^3/uL (4.0-10.0)
[2020-04-15 12:18] LABS: CALCIUM LEVEL 9.2 MG/DL (8.8-10.2); CREATININE FOR GFR 0.95 MG/DL (0.55-1.30); GLOMERULAR FILTRATION RATE 59.4 (>32); POTASSIUM SERUM 3.7 MEQ/L (3.5-5.1)
== END ==
PROVIDERS: ATTEND Physician Assistant
DX: D64.9 Anemia, unspecified (principal)

== ENCOUNTER → 2020-04-28 | Outpatient (CLI) | payer MEDICARE, MEDICAID, BC, OTHER ==
--- NOTE | 2020-04-28 12:26 | REP ---
INDICATION: R CALF PAIN/SWELLING. COMPARISON: None. TECHNIQUE: Duplex right lower extremity venous ultrasound is performed in the usual fashion. FINDINGS: The deep veins are anechoic and fully compressible from the groin to the popliteal fossa in the right lower extremity. Color flow imaging is homogeneous. Spectral Doppler interrogation demonstrates intact respiratory variation in flow and normal manual augmentation of flow. There is no evidence of deep vein thrombosis. IMPRESSION: Negative right lower extremity duplex venous ultrasound. No evidence of deep vein thrombosis. <Electronically signed by Tristian Mata > 04/28/20 [id number]
== END ==
LOC: M RAD 11:49
PROVIDERS: ATTEND Physician Assistant
DX: M79.661 Pain in right lower leg (principal)

== ENCOUNTER → 2020-05-06 | Outpatient (REF) | payer MEDICARE, MEDICAID, BC, OTHER | PROVIDERS: ATTEND Family Medicine | DX: E11.9 Type 2 diabetes mellitus without complications (principal) ==

== ENCOUNTER → 2020-05-14 | Outpatient (REF) | payer MEDICARE, MEDICAID, BC, OTHER ==
[2020-05-14 10:32] LABS: HEMOGLOBIN A1c 5.7 %
== END ==
PROVIDERS: ATTEND Physician Assistant
DX: E11.9 Type 2 diabetes mellitus without complications (principal)

== ENCOUNTER → 2020-05-15 | Outpatient (REF) | PROVIDERS: ATTEND Internal Medicine | DX: Z53.9 Procedure and treatment not carried out, unspecified reason (principal) ==

== ENCOUNTER → 2020-05-28 | Outpatient (REF) | payer MEDICARE, BC, OTHER, MEDICAID ==
[~2020-05-28] MED LIST changes: -MECL12.589 PO; +MECL12.590 PO
== END ==
LOC: EDSTATUS 05-22 06:47
PROVIDERS: ATTEND Internal Medicine
DX: Z20.828 Contact with and (suspected) exposure to other viral communicable diseases (principal)

== ENCOUNTER → 2020-06-15 | Outpatient (REF) | payer MEDICARE, MEDICAID, BC, OTHER | PROVIDERS: ATTEND Internal Medicine | DX: Z20.828 Contact with and (suspected) exposure to other viral communicable diseases (principal) ==

== ENCOUNTER → 2020-06-19 | Outpatient (REF) | payer MEDICARE, MEDICAID, BC, OTHER ==
[~2020-06-19] MED LIST changes: +GABA-282 PO; -GABA-843 PO
== END ==
PROVIDERS: ATTEND Internal Medicine
DX: Z20.828 Contact with and (suspected) exposure to other viral communicable diseases (principal)

== ENCOUNTER → 2020-06-25 | Outpatient (REF) | payer MEDICARE, MEDICAID, BC, OTHER | PROVIDERS: ATTEND Internal Medicine | DX: Z20.828 Contact with and (suspected) exposure to other viral communicable diseases (principal) ==

== ENCOUNTER → 2020-06-30 | Outpatient (REF) | payer MEDICARE, MEDICAID, BC, OTHER ==
[~2020-06-30] MED LIST changes: -GABA-282 PO; +GABA-843 PO
[2020-06-30 13:49] LABS: RSV AMPLIFICATION NEGATIVE (NEGATIVE)
== END ==
PROVIDERS: ATTEND Internal Medicine
DX: Z20.828 Contact with and (suspected) exposure to other viral communicable diseases (principal)

== ENCOUNTER → 2020-07-11 | Outpatient (REF) | payer MEDICARE, MEDICAID, BC, OTHER | PROVIDERS: ATTEND Internal Medicine | DX: Z53.9 Procedure and treatment not carried out, unspecified reason (principal) ==

== ENCOUNTER → 2020-07-16 | Outpatient (REF) | payer MEDICARE, MEDICAID, BC, OTHER ==
[~2020-07-16] MED LIST changes: +GABA-282 PO; -GABA-843 PO
== END ==
PROVIDERS: ATTEND Internal Medicine
DX: M25.551 Pain in right hip (principal)

== ENCOUNTER → 2020-07-16 | Outpatient (CLI) | payer MEDICARE, MEDICAID, BC, OTHER ==
--- NOTE | 2020-07-16 09:04 | REP ---
INDICATION: PAIN COMPARISON: None. TECHNIQUE: AP and frog-lateral views of the hip FINDINGS: Generalized age-related changes include subtle increased sclerosis to the acetabulum with minimal joint space narrowing. A somewhat bulky osteophyte along the inferior margin of the femoral head cannot definitively be excluded based on given images. Enthesopathy is also noted along the pelvic rim and femoral trochanter. No acute fracture or dislocation. Surrounding soft tissues are unremarkable. IMPRESSION: Mild generalized age-related changes as described above. <Electronically signed by Luis Lewis > 07/16/20 0900
== END ==
LOC: M RAD 08:20
PROVIDERS: ATTEND Internal Medicine
DX: M25.551 Pain in right hip (principal)

== ENCOUNTER → 2020-07-17 | Outpatient (REF) ==
[2020-07-17 14:55] LABS: HEMATOCRIT 35.7 % (36.0-47.0); MEAN CORPUSCULAR HEMOGLOBIN 27.8 pg (27.0-33.0); MEAN CORPUSCULAR HGB CONC 30.8 g/dl (32.0-36.5); MEAN CORPUSCULAR VOLUME 90.2 fl (80.0-96.0); PLATELET COUNT, AUTOMATED 241 10^3/uL (150-450); RED BLOOD COUNT 3.96 10^6/uL (4.00-5.40); WHITE BLOOD COUNT 10.7 10^3/uL (4.0-10.0)
[2020-07-17 15:09] LABS: CALCIUM LEVEL 9.2 MG/DL (8.8-10.2); CREATININE FOR GFR 0.97 MG/DL (0.55-1.30); POTASSIUM SERUM 3.5 MEQ/L (3.5-5.1)
== END ==
PROVIDERS: ATTEND Physician Assistant
DX: D64.9 Anemia, unspecified (principal)

== ENCOUNTER → 2020-07-23 | Outpatient (REF) | PROVIDERS: ATTEND Internal Medicine | DX: Z20.828 Contact with and (suspected) exposure to other viral communicable diseases (principal) ==

== ENCOUNTER → 2020-08-29 | Outpatient (REF) | payer MEDICARE, MEDICAID, BC, OTHER ==
[2020-08-29 12:58] LABS: HEMATOCRIT 32.8 % (36.0-47.0); HEMOGLOBIN 10.2 g/dl (12.0-15.5); MEAN CORPUSCULAR HGB CONC 31.1 g/dl (32.0-36.5); MEAN CORPUSCULAR VOLUME 90.1 fl (80.0-96.0); PLATELET COUNT, AUTOMATED 272 10^3/uL (150-450); RED BLOOD COUNT 3.64 10^6/uL (4.00-5.40); WHITE BLOOD COUNT 4.3 10^3/uL (4.0-10.0)
[2020-08-29 13:18] LABS: ALT/SGPT 17 U/L (12-78); BILIRUBIN,TOTAL 0.3 MG/DL (0.2-1.0); BLOOD UREA NITROGEN 11 MG/DL (7-18); CALCIUM LEVEL 8.7 MG/DL (8.8-10.2); CARBON DIOXIDE LEVEL 29 MEQ/L (21-32); CHLORIDE LEVEL 106 MEQ/L (98-107); GLOMERULAR FILTRATION RATE > 60.0 (>32); GLUCOSE, FASTING 78 MG/DL (70-100); POTASSIUM SERUM 3.7 MEQ/L (3.5-5.1); SODIUM LEVEL 141 MEQ/L (136-145); TOTAL PROTEIN 6.3 GM/DL (6.4-8.2)
== END ==
PROVIDERS: ATTEND Internal Medicine
DX: F41.9 Anxiety disorder, unspecified (principal); Z79.899 Other long term (current) drug therapy

== ENCOUNTER → 2020-10-10 | Outpatient (REF) | payer MEDICARE, MEDICAID, BC, OTHER ==
[~2020-10-10] MED LIST changes: +MECL-136 PO; -MECL12.590 PO
[2020-10-10 20:27] LABS: RSV AMPLIFICATION NEGATIVE (NEGATIVE)
== END ==
PROVIDERS: ATTEND Internal Medicine
DX: Z11.52 Encounter for screening for COVID-19 (principal)

== ENCOUNTER → 2020-11-11 | Outpatient (REF) | payer MEDICARE, MEDICAID, BC, OTHER ==
[~2020-11-11] MED LIST changes: -ACET-908 PO; +ACET-910 PO
[2020-11-11 10:08] LABS: HEMATOCRIT 34.5 % (36.0-47.0); HEMOGLOBIN 10.6 g/dl (12.0-15.5); MEAN CORPUSCULAR HEMOGLOBIN 28.1 pg (27.0-33.0); MEAN CORPUSCULAR HGB CONC 30.7 g/dl (32.0-36.5); MEAN CORPUSCULAR VOLUME 91.5 fl (80.0-96.0); PLATELET COUNT, AUTOMATED 208 10^3/uL (150-450); RED BLOOD COUNT 3.77 10^6/uL (4.00-5.40); WHITE BLOOD COUNT 4.6 10^3/uL (4.0-10.0)
[2020-11-11 10:40] LABS: BLOOD UREA NITROGEN 13 MG/DL (7-18); CALCIUM LEVEL 9.5 MG/DL (8.8-10.2); CARBON DIOXIDE LEVEL 30 MEQ/L (21-32); CHLORIDE LEVEL 105 MEQ/L (98-107); GLOMERULAR FILTRATION RATE > 60.0 (>32); GLUCOSE, FASTING 107 MG/DL (70-100); POTASSIUM SERUM 3.7 MEQ/L (3.5-5.1); SODIUM LEVEL 141 MEQ/L (136-145)
== END ==
PROVIDERS: ATTEND Internal Medicine
DX: F41.9 Anxiety disorder, unspecified (principal); Z79.899 Other long term (current) drug therapy

== ENCOUNTER → 2020-12-15 | Outpatient (REF) | payer MEDICARE, MEDICAID, BC, OTHER ==
[2020-12-15 11:46] LABS: HEMOGLOBIN A1c 5.5 %
== END ==
PROVIDERS: ATTEND Internal Medicine
DX: E11.9 Type 2 diabetes mellitus without complications (principal)

== ENCOUNTER → 2021-01-06 | Outpatient (REF) | payer MEDICARE, MEDICAID, BC, OTHER ==
[2021-01-06 12:24] LABS: HEMATOCRIT 33.7 % (36.0-47.0); HEMOGLOBIN 10.1 g/dl (12.0-15.5); MEAN CORPUSCULAR VOLUME 90.1 fl (80.0-96.0); PLATELET COUNT, AUTOMATED 246 10^3/uL (150-450); RED BLOOD COUNT 3.74 10^6/uL (4.00-5.40); WHITE BLOOD COUNT 6.6 10^3/uL (4.0-10.0)
[2021-01-06 13:07] LABS: BLOOD UREA NITROGEN 19 MG/DL (7-18); CALCIUM LEVEL 8.6 MG/DL (8.8-10.2); CARBON DIOXIDE LEVEL 31 MEQ/L (21-32); CHLORIDE LEVEL 106 MEQ/L (98-107); GLOMERULAR FILTRATION RATE > 60.0 (>32); GLUCOSE, FASTING 137 MG/DL (70-100); POTASSIUM SERUM 3.6 MEQ/L (3.5-5.1); SODIUM LEVEL 141 MEQ/L (136-145)
== END ==
PROVIDERS: ATTEND Physician Assistant
DX: D64.9 Anemia, unspecified (principal)

== ENCOUNTER → 2021-03-13 | Outpatient (CLI) | payer MEDICARE, BC, OTHER, MEDICAID ==
--- NOTE | 2021-03-13 15:05 | REP ---
INDICATION: RIGHT RIB PAIN- CT/MRI HOLDING AREA. COMPARISON: Comparison chest x-ray August 15, 2019. TECHNIQUE: Five views including PA chest. FINDINGS: PA chest radiograph shows no evidence of pneumothorax or hydrothorax. Heart is enlarged unchanged. Thoracic aorta is tortuous as before. No new mediastinal widening. There are clips in right upper quadrant of the abdomen. The lung baum are clear. Multiple views of the right rib cage show no definite acute rib fracture. No bony destructive lesion is seen. The right 10th lateral rib is deformed but this appears to be old. IMPRESSION: Old-appearing deformity of the right lateral 10th rib. No acute rib fracture seen. Cardiomegaly. Otherwise negative <Electronically signed by Tristian Mata > 03/13/21 0621
== END ==
LOC: M RAD 14:28
PROVIDERS: ATTEND Physician Assistant
DX: R07.81 Pleurodynia (principal); Z87.81 Personal history of (healed) traumatic fracture; I51.7 Cardiomegaly

== ENCOUNTER → 2021-04-08 | Outpatient (REF) | payer MEDICARE, BC, OTHER, MEDICAID ==
[2021-04-08 11:12] LABS: HEMATOCRIT 34.2 % (36.0-47.0); HEMOGLOBIN 10.3 g/dl (12.0-15.5); MEAN CORPUSCULAR HGB CONC 30.1 g/dl (32.0-36.5); MEAN CORPUSCULAR VOLUME 89.8 fl (80.0-96.0); PLATELET COUNT, AUTOMATED 248 10^3/uL (150-450); RED BLOOD COUNT 3.81 10^6/uL (4.00-5.40); WHITE BLOOD COUNT 6.3 10^3/uL (4.0-10.0)
[2021-04-08 13:13] LABS: CREATININE FOR GFR 1.19 MG/DL (0.55-1.30); GLOMERULAR FILTRATION RATE 45.7 (>32); POTASSIUM SERUM 4.1 MEQ/L (3.5-5.1)
== END ==
PROVIDERS: ATTEND Physician Assistant
DX: E11.9 Type 2 diabetes mellitus without complications (principal)

== ENCOUNTER → 2021-04-21 | Outpatient (CLI) | payer MEDICARE, BC, OTHER, MEDICAID ==
--- NOTE | 2021-04-21 17:16 | REP ---
INDICATION: PORTABLE HAND PAIN COMPARISON: None. TECHNIQUE: Two limited views left hand. FINDINGS: There is no evidence of acute fracture, dislocation, or intrinsic bone disease. IMPRESSION: No fracture or dislocation. <Electronically signed by Grupo Astorga > 04/21/21 [id number]
== END ==
PROVIDERS: ATTEND Internal Medicine
DX: M79.642 Pain in left hand (principal)

== ENCOUNTER → 2021-06-03 | Outpatient (REF) | payer MEDICARE, BC, OTHER, MEDICAID ==
[2021-06-03 11:11] LABS: HEMATOCRIT 34.2 % (36.0-47.0); HEMOGLOBIN 10.5 g/dl (12.0-15.5); MEAN CORPUSCULAR HEMOGLOBIN 27.2 pg (27.0-33.0); MEAN CORPUSCULAR HGB CONC 30.7 g/dl (32.0-36.5); MEAN CORPUSCULAR VOLUME 88.6 fl (80.0-96.0); PLATELET COUNT, AUTOMATED 251 10^3/uL (150-450); RED BLOOD COUNT 3.86 10^6/uL (4.00-5.40); WHITE BLOOD COUNT 5.9 10^3/uL (4.0-10.0)
[2021-06-03 11:29] LABS: HEMOGLOBIN A1c 5.5 %
[2021-06-03 11:40] LABS: BLOOD UREA NITROGEN 16 MG/DL (7-18); CALCIUM LEVEL 8.9 MG/DL (8.8-10.2); CARBON DIOXIDE LEVEL 30 MEQ/L (21-32); CHLORIDE LEVEL 105 MEQ/L (98-107); CREATININE FOR GFR 0.93 MG/DL (0.55-1.30); GLOMERULAR FILTRATION RATE > 60.0 (>32); GLUCOSE, FASTING 181 MG/DL (70-100); POTASSIUM SERUM 3.7 MEQ/L (3.5-5.1); SODIUM LEVEL 142 MEQ/L (136-145)
== END ==
PROVIDERS: ATTEND Internal Medicine
DX: D64.9 Anemia, unspecified (principal); Z79.899 Other long term (current) drug therapy

== ENCOUNTER → 2021-06-30 | Outpatient (CLI) | payer MEDICARE, OTHER, MEDICAID | LOC: M PAIN 09:30 | PROVIDERS: ATTEND Nurse Practitioner Family | DX: M79.10 Myalgia, unspecified site (principal); K21.9 Gastro-esophageal reflux disease without esophagitis; E55.9 Vitamin D deficiency, unspecified; D50.9 Iron deficiency anemia, unspecified; Z86.14 Personal history of Methicillin resistant Staphylococcus aureus infection; Z86.59 Personal history of other mental and behavioral disorders; Z88.2 Allergy status to sulfonamides; Z88.8 Allergy status to other drugs, medicaments and biological substances; Z91.011 Allergy to milk products; Z79.82 Long term (current) use of aspirin; Z79.891 Long term (current) use of opiate analgesic; Z79.899 Other long term (current) drug therapy ==

== ENCOUNTER → 2021-07-08 | Outpatient (REF) | payer MEDICARE, OTHER, MEDICAID ==
[2021-07-08 14:04] LABS: HEMOGLOBIN A1c 5.8 %
== END ==
PROVIDERS: ATTEND Internal Medicine
DX: D64.9 Anemia, unspecified (principal); Z79.899 Other long term (current) drug therapy

== ENCOUNTER → 2021-09-02 | Outpatient (REF) | payer MEDICARE, OTHER, MEDICAID ==
[2021-09-02 12:05] LABS: HEMATOCRIT 32.8 % (36.0-47.0); HEMOGLOBIN 9.8 g/dl (12.0-15.5); MEAN CORPUSCULAR HEMOGLOBIN 27.1 pg (27.0-33.0); MEAN CORPUSCULAR HGB CONC 29.9 g/dl (32.0-36.5); MEAN CORPUSCULAR VOLUME 90.6 fl (80.0-96.0); PLATELET COUNT, AUTOMATED 295 10^3/uL (150-450); RED BLOOD COUNT 3.62 10^6/uL (4.00-5.40); WHITE BLOOD COUNT 6.3 10^3/uL (4.0-10.0)
[2021-09-02 13:20] LABS: CALCIUM LEVEL 9.3 MG/DL (8.8-10.2); CREATININE FOR GFR 1.1 MG/DL (0.55-1.30); POTASSIUM SERUM 3.7 MEQ/L (3.5-5.1)
== END ==
PROVIDERS: ATTEND Internal Medicine
DX: D64.9 Anemia, unspecified (principal)

== ENCOUNTER → 2021-09-24 | Outpatient (REF) | payer MEDICARE, OTHER, MEDICAID | PROVIDERS: ATTEND Internal Medicine | DX: R05.9 Cough, unspecified (principal) ==

== ENCOUNTER → 2021-10-05 | Outpatient (REF) | payer MEDICARE, OTHER, MEDICAID ==
[~2021-10-05] MED LIST changes: -AZAT50TA2 PO; +AZAT50TA37 PO
[2021-10-05 13:00] LABS: HEMATOCRIT 31.6 % (36.0-47.0); HEMOGLOBIN 9.7 g/dl (12.0-15.5); MEAN CORPUSCULAR HGB CONC 30.7 g/dl (32.0-36.5); PLATELET COUNT, AUTOMATED 262 10^3/uL (150-450); RED BLOOD COUNT 3.59 10^6/uL (4.00-5.40); WHITE BLOOD COUNT 6.5 10^3/uL (4.0-10.0)
[2021-10-05 13:24] LABS: BLOOD UREA NITROGEN 18 MG/DL (7-18); CARBON DIOXIDE LEVEL 32 MEQ/L (21-32); CHLORIDE LEVEL 105 MEQ/L (98-107); GLOMERULAR FILTRATION RATE > 60.0 (>32); GLUCOSE, FASTING 91 MG/DL (70-100); POTASSIUM SERUM 4.5 MEQ/L (3.5-5.1); SODIUM LEVEL 139 MEQ/L (136-145)
== END ==
PROVIDERS: ATTEND Internal Medicine
DX: D64.9 Anemia, unspecified (principal)

== ENCOUNTER → 2021-10-05 | Outpatient (CLI) | payer MEDICARE, OTHER, MEDICAID ==
[~2021-10-05] MED LIST changes: +AZAT50TA2 PO; -AZAT50TA37 PO; +BUPIVACAINE HCL 0.25% 10ML VIAL As Ordered ONE; +BUPIVACAINE HCL 0.25% 30ML VIAL As Ordered ONE; +TRIAMCINOLONE ACETONIDE SUSP 40 MG/ML VIAL (J3301) As Ordered ONE
== END ==
LOC: M PAIN 08:30
PROVIDERS: ATTEND Anesthesiology
DX: M79.18 Myalgia, other site (principal); R73.03 Prediabetes; K21.9 Gastro-esophageal reflux disease without esophagitis; Z86.59 Personal history of other mental and behavioral disorders; Z88.2 Allergy status to sulfonamides; Z88.8 Allergy status to other drugs, medicaments and biological substances; Z91.011 Allergy to milk products; Z79.82 Long term (current) use of aspirin; Z79.891 Long term (current) use of opiate analgesic; Z79.899 Other long term (current) drug therapy
CPT/HCPCS: 20552; J3301

== ENCOUNTER → 2021-10-08 | Outpatient (REF) | payer MEDICAID, MEDICARE, OTHER ==
[~2021-10-08] MED LIST changes: -BUPIVACAINE HCL 0.25% 10ML VIAL As Ordered ONE; -BUPIVACAINE HCL 0.25% 30ML VIAL As Ordered ONE; -TRIAMCINOLONE ACETONIDE SUSP 40 MG/ML VIAL (J3301) As Ordered ONE
== END ==
PROVIDERS: ATTEND Physician Assistant
DX: R05.9 Cough, unspecified (principal)

== ENCOUNTER → 2021-11-04 | Outpatient (REF) | payer MEDICARE, OTHER, MEDICAID ==
[~2021-11-04] MED LIST changes: -AZAT50TA2 PO; +AZAT50TA37 PO
[2021-11-04 13:05] LABS: HEMOGLOBIN 9.1 g/dl (12.0-15.5); MEAN CORPUSCULAR HEMOGLOBIN 26.2 pg (27.0-33.0); MEAN CORPUSCULAR HGB CONC 29.4 g/dl (32.0-36.5); MEAN CORPUSCULAR VOLUME 89.3 fl (80.0-96.0); PLATELET COUNT, AUTOMATED 275 10^3/uL (150-450); RED BLOOD COUNT 3.47 10^6/uL (4.00-5.40); WHITE BLOOD COUNT 5.2 10^3/uL (4.0-10.0)
[2021-11-04 14:07] LABS: BLOOD UREA NITROGEN 16 MG/DL (7-18); CALCIUM LEVEL 9.4 MG/DL (8.8-10.2); CARBON DIOXIDE LEVEL 28 MEQ/L (21-32); CHLORIDE LEVEL 104 MEQ/L (98-107); GLOMERULAR FILTRATION RATE > 60.0 (>32); GLUCOSE, FASTING 149 MG/DL (70-100); POTASSIUM SERUM 4.1 MEQ/L (3.5-5.1); SODIUM LEVEL 141 MEQ/L (136-145)
[2021-11-04 21:27] LABS: HEMOGLOBIN A1c 5.8 %
== END ==
PROVIDERS: ATTEND Internal Medicine
DX: D64.9 Anemia, unspecified (principal); Z79.899 Other long term (current) drug therapy

== ENCOUNTER → 2022-01-18 | Outpatient (REF) | payer MEDICARE, OTHER, MEDICAID ==
[2022-01-18 11:48] LABS: HEMOGLOBIN A1c 5.3 %
== END ==
PROVIDERS: ATTEND Internal Medicine
DX: Z13.1 Encounter for screening for diabetes mellitus (principal); Z79.899 Other long term (current) drug therapy

== ENCOUNTER → 2022-01-28 | Outpatient (CLI) | payer MEDICARE, BC, OTHER | LOC: M RAD 12:21 | PROVIDERS: ATTEND Psychiatry & Neurology Neurology | DX: G93.0 Cerebral cysts (principal); R51.9 Headache, unspecified; M54.18 Radiculopathy, sacral and sacrococcygeal region ==

== ENCOUNTER → 2022-03-10 | Outpatient (REF) | payer MEDICARE, BC, OTHER ==
[2022-03-10 12:00] LABS: HEMATOCRIT 33.7 % (36.0-47.0); HEMOGLOBIN 9.9 g/dl (12.0-15.5); MEAN CORPUSCULAR HEMOGLOBIN 24.6 pg (27.0-33.0); MEAN CORPUSCULAR HGB CONC 29.4 g/dl (32.0-36.5); MEAN CORPUSCULAR VOLUME 83.6 fl (80.0-96.0); PLATELET COUNT, AUTOMATED 277 10^3/uL (150-450); RED BLOOD COUNT 4.03 10^6/uL (4.00-5.40); WHITE BLOOD COUNT 5.4 10^3/uL (4.0-10.0)
[2022-03-10 12:45] LABS: CREATININE FOR GFR 0.98 MG/DL (0.55-1.30); GLOMERULAR FILTRATION RATE 57.2 (>32); POTASSIUM SERUM 3.7 MEQ/L (3.5-5.1)
[2022-03-10 14:38] LABS: HEMOGLOBIN A1c 5.8 %
== END ==
PROVIDERS: ATTEND Internal Medicine
DX: D64.9 Anemia, unspecified (principal); Z79.899 Other long term (current) drug therapy

== ENCOUNTER → 2022-05-17 | Outpatient (REF) | payer MEDICARE, BC, OTHER | PROVIDERS: ATTEND Physician Assistant | DX: R41.0 Disorientation, unspecified (principal) ==

== ENCOUNTER → 2022-05-17 | Outpatient (REF) | payer MEDICARE, BC, OTHER ==
[2022-05-17 11:31] LABS: BASO # 0.1 10^3/uL (0.0-0.2); EOS # 0.3 10^3/uL (0.0-0.5); EOS % 4.8 % (0.0-3.0); HEMATOCRIT 29.3 % (36.0-47.0); HEMOGLOBIN 8.6 g/dl (12.0-15.5); LYMPH % 16.4 % (24.0-44.0); MEAN CORPUSCULAR HGB CONC 29.4 g/dl (32.0-36.5); MEAN CORPUSCULAR VOLUME 81.8 fl (80.0-96.0); MONO # 0.6 10^3/uL (0.0-0.8); MONO % 9.3 % (2.0-8.0); NEUTROPHILS # 4.1 10^3/uL (1.5-8.5); NEUTROPHILS % 68.2 % (36.0-66.0); PLATELET COUNT, AUTOMATED 274 10^3/uL (150-450); RED BLOOD COUNT 3.58 10^6/uL (4.00-5.40)
[2022-05-17 12:05] LABS: BLOOD UREA NITROGEN 11 MG/DL (7-18); CALCIUM LEVEL 8.8 MG/DL (8.8-10.2); CARBON DIOXIDE LEVEL 29 MEQ/L (21-32); CHLORIDE LEVEL 108 MEQ/L (98-107); CREATININE FOR GFR 0.83 MG/DL (0.55-1.30); GLOMERULAR FILTRATION RATE > 60.0 (>32); GLUCOSE, FASTING 134 MG/DL (70-100); POTASSIUM SERUM 3.7 MEQ/L (3.5-5.1); SODIUM LEVEL 141 MEQ/L (136-145)
== END ==
PROVIDERS: ATTEND Physician Assistant
DX: R41.0 Disorientation, unspecified (principal)

== ENCOUNTER → 2022-06-09 | Outpatient (REF) | payer MEDICARE, BC, OTHER ==
[2022-06-09 12:22] LABS: HEMATOCRIT 32.6 % (36.0-47.0); HEMOGLOBIN 9.2 g/dl (12.0-15.5); MEAN CORPUSCULAR HEMOGLOBIN 23.5 pg (27.0-33.0); MEAN CORPUSCULAR HGB CONC 28.2 g/dl (32.0-36.5); MEAN CORPUSCULAR VOLUME 83.4 fl (80.0-96.0); PLATELET COUNT, AUTOMATED 301 10^3/uL (150-450); RED BLOOD COUNT 3.91 10^6/uL (4.00-5.40); WHITE BLOOD COUNT 5.9 10^3/uL (4.0-10.0)
[2022-06-09 12:46] LABS: BLOOD UREA NITROGEN 16 MG/DL (9-23); CALCIUM LEVEL 8.9 MG/DL (8.3-10.6); CARBON DIOXIDE LEVEL 29 MMOL/L (20-31); CHLORIDE LEVEL 103 MMOL/L (98-107); CREATININE FOR GFR 0.92 MG/DL (0.55-1.30); GLOMERULAR FILTRATION RATE > 60.0 (>32); GLUCOSE, FASTING 166 MG/DL (74-106); POTASSIUM SERUM 3.5 MMOL/L (3.5-5.1); SODIUM LEVEL 141 MMOL/L (136-145)
== END ==
PROVIDERS: ATTEND Internal Medicine
DX: D64.9 Anemia, unspecified (principal)

== ENCOUNTER → 2022-06-11 | Outpatient (REF) | payer MEDICARE, BC, OTHER | PROVIDERS: ATTEND Internal Medicine | DX: N39.0 Urinary tract infection, site not specified (principal) ==

== ENCOUNTER → 2022-06-24 | Outpatient (REF) | payer MEDICARE, BC, OTHER | PROVIDERS: ATTEND Physician Assistant | DX: R68.83 Chills (without fever) (principal) ==

== ENCOUNTER → 2022-07-14 | Outpatient (REF) | payer MEDICARE, BC, OTHER ==
[2022-07-14 11:57] LABS: HEMOGLOBIN A1c 5.7 % (4.0-6.0)
== END ==
PROVIDERS: ATTEND Physician Assistant
DX: D64.9 Anemia, unspecified (principal); Z79.899 Other long term (current) drug therapy

== ENCOUNTER → 2022-07-20 | Outpatient (REF) | payer MEDICARE, BC, OTHER | PROVIDERS: ATTEND Physician Assistant | DX: J02.9 Acute pharyngitis, unspecified (principal) ==

== ENCOUNTER → 2022-08-11 | Outpatient (CLI) | payer MEDICARE, BC, OTHER | PROVIDERS: ATTEND Internal Medicine | DX: R05.9 Cough, unspecified (principal) ==

== ENCOUNTER → 2022-08-11 | Outpatient (REF) | payer MEDICARE, BC, OTHER | PROVIDERS: ATTEND Physician Assistant | DX: R05.9 Cough, unspecified (principal) ==

== ENCOUNTER → 2022-09-15 | Outpatient (REF) | payer MEDICARE, BC, OTHER, MEDICAID | PROVIDERS: ATTEND Physician Assistant | DX: D64.9 Anemia, unspecified (principal) ==

== ENCOUNTER → 2022-10-04 | Outpatient (REF) | payer MEDICARE, BC, OTHER, MEDICAID ==
[2022-10-04 10:11] LABS: HEMATOCRIT 30.8 % (36.0-47.0); HEMOGLOBIN 8.9 g/dl (12.0-15.5); MEAN CORPUSCULAR HEMOGLOBIN 22.9 pg (27.0-33.0); MEAN CORPUSCULAR HGB CONC 28.9 g/dl (32.0-36.5); MEAN CORPUSCULAR VOLUME 79.4 fl (80.0-96.0); PLATELET COUNT, AUTOMATED 341 10^3/uL (150-450); RED BLOOD COUNT 3.88 10^6/uL (4.00-5.40); WHITE BLOOD COUNT 6.3 10^3/uL (4.0-10.0)
[2022-10-04 13:30] LABS: ALBUMIN 3.1 G/DL (3.2-5.2); BILIRUBIN,DIRECT 0.1 MG/DL (<0.4); BILIRUBIN,TOTAL 0.2 MG/DL (0.3-1.2); CALCIUM LEVEL 8.9 MG/DL (8.3-10.6); CREATININE FOR GFR 0.97 MG/DL (0.55-1.30); GLOMERULAR FILTRATION RATE 57.7 (>32); POTASSIUM SERUM 4.3 MMOL/L (3.5-5.1); THYROXINE (T4) 6.1 UG/DL (4.5-10.9); TOTAL 25(OH) VITAMIN D 25.9 NG/ML (20.0-100.0)
[2022-10-04 14:40] LABS: THYROID STIMULATING HORMONE 5.254 uIU/ML (0.55-4.78)
== END ==
PROVIDERS: ATTEND Physician Assistant
DX: R53.83 Other fatigue (principal); Z79.899 Other long term (current) drug therapy

== ENCOUNTER → 2022-10-13 | Outpatient (REF) | payer MEDICARE, BC, OTHER, MEDICAID ==
[~2022-10-13] MED LIST changes: +ARTIDRO4 OU; +ASPI-655 PO; -ASPI1CHW3 PO
== END ==
PROVIDERS: ATTEND Internal Medicine
DX: D64.9 Anemia, unspecified (principal); Z53.8 Procedure and treatment not carried out for other reasons

== ENCOUNTER → 2022-10-25 | Outpatient (CLI) | payer MEDICARE, BC, OTHER, MEDICAID | LOC: M RAD 08:40 | PROVIDERS: ATTEND Physician Assistant | DX: R10.31 Right lower quadrant pain (principal) ==

== ENCOUNTER → 2022-11-08 | Outpatient (REF) | payer MEDICARE, BC, OTHER, MEDICAID | PROVIDERS: ATTEND Physician Assistant | DX: D64.9 Anemia, unspecified (principal); Z79.899 Other long term (current) drug therapy ==

== ENCOUNTER → 2022-12-13 | Outpatient (REF) | payer MEDICARE, BC, OTHER, MEDICAID ==
[2022-12-13 11:28] LABS: HEMATOCRIT 31.6 % (36.0-47.0); MEAN CORPUSCULAR HEMOGLOBIN 22.6 pg (27.0-33.0); MEAN CORPUSCULAR HGB CONC 28.5 g/dl (32.0-36.5); MEAN CORPUSCULAR VOLUME 79.2 fl (80.0-96.0); PLATELET COUNT, AUTOMATED 357 10^3/uL (150-450); RED BLOOD COUNT 3.99 10^6/uL (4.00-5.40)
[2022-12-13 12:02] LABS: BLOOD UREA NITROGEN 15 MG/DL (9-23); CALCIUM LEVEL 8.6 MG/DL (8.3-10.6); CARBON DIOXIDE LEVEL 28 MMOL/L (20-31); CHLORIDE LEVEL 104 MMOL/L (98-107); CREATININE FOR GFR 0.91 MG/DL (0.55-1.30); GLOMERULAR FILTRATION RATE > 60.0 (>32); GLUCOSE, FASTING 123 MG/DL (74-106); POTASSIUM SERUM 3.9 MMOL/L (3.5-5.1); SODIUM LEVEL 141 MMOL/L (136-145)
== END ==
PROVIDERS: ATTEND Internal Medicine
DX: E78.5 Hyperlipidemia, unspecified (principal)

== ENCOUNTER → 2023-03-14 | Outpatient (REF) | payer MEDICARE, BC, OTHER, MEDICAID ==
[~2023-03-14] MED LIST changes: +MECL-209 PO; -MECL1TAB31 PO
[2023-03-14 10:42] LABS: HEMATOCRIT 33.5 % (36.0-47.0); HEMOGLOBIN 9.7 g/dl (12.0-15.5); MEAN CORPUSCULAR HEMOGLOBIN 22.5 pg (27.0-33.0); MEAN CORPUSCULAR VOLUME 77.5 fl (80.0-96.0); PLATELET COUNT, AUTOMATED 318 10^3/uL (150-450); RED BLOOD COUNT 4.32 10^6/uL (4.00-5.40); WHITE BLOOD COUNT 9.5 10^3/uL (4.0-10.0)
[2023-03-14 11:21] LABS: CALCIUM LEVEL 8.4 MG/DL (8.3-10.6); CREATININE FOR GFR 1.12 MG/DL (0.55-1.30); GLOMERULAR FILTRATION RATE 48.9 (>32); POTASSIUM SERUM 3.9 MMOL/L (3.5-5.1)
[2023-03-14 11:23] LABS: HEMOGLOBIN A1c 6.5 % (4.0-6.0)
== END ==
PROVIDERS: ATTEND Internal Medicine
DX: D64.9 Anemia, unspecified (principal); Z79.899 Other long term (current) drug therapy

== ENCOUNTER → 2023-03-20 | Outpatient (REF) | payer MEDICARE, BC, OTHER, MEDICAID | LOC: M LAB 09:10 | PROVIDERS: ATTEND Internal Medicine | DX: R50.9 Fever, unspecified (principal) ==

== ENCOUNTER 2023-04-03 18:37 | Inpatient (IN) | payer MEDICARE, BC, OTHER, MEDICAID ==
[~2023-04-03] VITALS: Ht 160 cm; Wt 88.4 kg
[2023-04-03] MEDS ORDERED: IBUPROFEN 600MG TAB PO ONE (19:00)
[2023-04-03 19:51] LABS: BASO % 0.1 % (0.0-1.0); EOS % 0.1 % (0.0-3.0); HEMATOCRIT 30.4 % (36.0-47.0); LYMPH # 0.7 10^3/uL (1.5-5.0); LYMPH % 6.1 % (24.0-44.0); MEAN CORPUSCULAR HEMOGLOBIN 22.3 pg (27.0-33.0); MEAN CORPUSCULAR HGB CONC 29.6 g/dl (32.0-36.5); MEAN CORPUSCULAR VOLUME 75.4 fl (80.0-96.0); MONO # 0.6 10^3/uL (0.0-0.8); NEUTROPHILS # 10.2 10^3/uL (1.5-8.5); PLATELET COUNT, AUTOMATED 348 10^3/uL (150-450); RED BLOOD COUNT 4.03 10^6/uL (4.00-5.40); WHITE BLOOD COUNT 11.6 10^3/uL (4.0-10.0)
[2023-04-03 20:07] LABS: ALBUMIN 2.9 G/DL (3.2-5.2); BILIRUBIN,DIRECT 0.3 MG/DL (<0.4); BILIRUBIN,TOTAL 0.6 MG/DL (0.3-1.2); CALCIUM LEVEL 8.2 MG/DL (8.3-10.6); CREATININE FOR GFR 1.05 MG/DL (0.55-1.30); GLOMERULAR FILTRATION RATE 52.5 (>32); POTASSIUM SERUM 4.1 MMOL/L (3.5-5.1); TOTAL PROTEIN 6.4 G/DL (5.7-8.2)
[2023-04-03 20:09] LABS: THYROID STIMULATING HORMONE 3.693 uIU/ML (0.55-4.78); THYROXINE (T4) 6.7 UG/DL (4.5-10.9)
[2023-04-03 20:14] LABS: PROCALCITONIN 0.07 ng/ml
[2023-04-03] MEDS ORDERED: CEFTAROLINE FOSAMIL 400 MG in D5W MINI-BAG PLUS 50 ML IV ONE (22:20)
[2023-04-03] MEDS ORDERED: SERT50TA29 PO (23:08)
[2023-04-03] MEDS ORDERED: OLAN2.5T25 PO (23:08)
[2023-04-03] MEDS ORDERED: CLON0.5T2 PO (23:08)
[2023-04-03] MEDS ORDERED: OLAN1TAB16 PO (23:08)
[2023-04-03] MEDS ORDERED: PANT20TA51 PO (23:08)
[2023-04-03] MEDS ORDERED: FERR1TAB8 PO (23:11)
[2023-04-03] MEDS ORDERED: FURO40TA2 PO (23:11)
[2023-04-03] MEDS ORDERED: DULC10SU2 PR (23:11)
[2023-04-03] MEDS ORDERED: CETALOT TP (23:15)
[2023-04-03] MEDS ORDERED: [UNRECOGNIZED DRUG - CODE] TP (23:15)
[2023-04-03] MEDS ORDERED: HOME MED LIST COMPLETE! XX SCH (23:15)
[2023-04-04] MEDS ORDERED: MOM 30ML SUSPENSION UDC PO PRN
[2023-04-04] MEDS ORDERED: VANCOMYCIN HCL 1,000 MG, VIAL MATE ADAPTER 1 EACH in NS 250 ML IV ONE (01:00)
[2023-04-04] MEDS: HEPARIN SOD (PORCINE) 5000UNITS/ML 1ML VIAL/SYRINGE SC SCH ×3 (06:22→20:41)
[2023-04-04 07:03] LABS: HEMATOCRIT 30.7 % (36.0-47.0); HEMOGLOBIN 9.1 g/dl (12.0-15.5); MEAN CORPUSCULAR HEMOGLOBIN 22.5 pg (27.0-33.0); MEAN CORPUSCULAR HGB CONC 29.6 g/dl (32.0-36.5); PLATELET COUNT, AUTOMATED 300 10^3/uL (150-450); RED BLOOD COUNT 4.04 10^6/uL (4.00-5.40); WHITE BLOOD COUNT 10.8 10^3/uL (4.0-10.0)
[2023-04-04 07:39] LABS: ALBUMIN 2.8 G/DL (3.2-5.2); ALKALINE PHOSPHATASE 119 U/L (46-116); ALT/SGPT 11 U/L (7.0-40); AST/SGOT 18 U/L (<34); BILIRUBIN,TOTAL 0.5 MG/DL (0.3-1.2); BLOOD UREA NITROGEN 18 MG/DL (9-23); CALCIUM LEVEL 8.5 MG/DL (8.3-10.6); CARBON DIOXIDE LEVEL 31 MMOL/L (20-31); CHLORIDE LEVEL 105 MMOL/L (98-107); CREATININE FOR GFR 1.09 MG/DL (0.55-1.30); GLOMERULAR FILTRATION RATE 50.3 (>32); GLUCOSE, FASTING 101 MG/DL (74-106); MAGNESIUM LEVEL 1.8 MG/DL (1.8-2.4); POTASSIUM SERUM 4.6 MMOL/L (3.5-5.1); SODIUM LEVEL 142 MMOL/L (136-145); TOTAL PROTEIN 6.4 G/DL (5.7-8.2)
[2023-04-04] MEDS ORDERED: VANCOMYCIN HCL 1,000 MG, VIAL MATE ADAPTER 1 EACH in NS 250 ML IV SCH (08:00)
[2023-04-04 08:05] LABS: ERYTHROCYTE SEDIMENTATION RATE 82 mm/hr (0-30)
[2023-04-04] MEDS: OLANZapine 5 MG TAB PO SCH (08:35)
[2023-04-04] MEDS: DOCUSATE SODIUM 100MG CAPSULE PO SCH ×2 (08:35→20:40)
[2023-04-04] MEDS: ASPIRIN 81MG CHEW TABLET PO SCH (08:36)
[2023-04-04] MEDS: clonazePAM 0.5 MG TAB PO SCH ×2 (08:38→20:40)
[2023-04-04] MEDS ORDERED: FUROSEMIDE 40 MG TAB PO SCH (09:00)
[2023-04-04 09:57] LABS: C REACTIVE PROTEIN QUANTITATIV 10.8 MG/DL (<1.0)
[2023-04-04] MEDS: PANTOPRAZOLE 20 MG TAB PO SCH (09:59)
[2023-04-04] MEDS ORDERED: BISACODYL 10MG SUPP PR PRN (10:15)
[2023-04-04 11:29] LABS: ANTI-STREPTOLYSIN O QUANT < 25.0 IU/ML (<195)
[2023-04-04] MEDS: FERROUS SULFATE 325MG TAB PO SCH (11:39)
[2023-04-04 14:55] VITALS: BP 123/62; TEMP 98.1; O2SAT 97
[2023-04-04] MEDS: PERCOCET 5MG/325MG TAB PO PRN (15:43)
[2023-04-04 19:58] VITALS: BP 100/50; TEMP 99.9; O2SAT 94
[2023-04-04 20:15] VITALS: TEMP 102.3
[2023-04-04] MEDS: OLANZapine 2.5MG TABLET PO SCH (20:40)
[2023-04-04] MEDS: ATORVASTATIN 10 MG TAB PO SCH (20:40)
[2023-04-04] MEDS: SERTRALINE HCL 25 MG TABLET PO SCH (20:40)
[2023-04-04] MEDS: ACETAMINOPHEN TAB 650MG DOSE (2X325MG) PO PRN (20:41)
[2023-04-04 22:22] VITALS: BP 112/60; TEMP 99.6; O2SAT 93
[2023-04-04 22:26] VITALS: TEMP 100.6
[2023-04-04] MEDS ORDERED: LR 1,000 ML IV ONE (22:40)
[2023-04-04] MEDS ORDERED: KETOROLAC 30 MG/ML 1ML VIAL IV ONE (22:55)
[2023-04-04 23:09] VITALS: BP 102/63; TEMP 100.2; O2SAT 94
[2023-04-04 23:10] LABS: BASO % 0.1 % (0.0-1.0); EOS # 0.1 10^3/uL (0.0-0.5); EOS % 0.9 % (0.0-3.0); HEMATOCRIT 30.6 % (36.0-47.0); HEMOGLOBIN 9.2 g/dl (12.0-15.5); LYMPH # 1.1 10^3/uL (1.5-5.0); MEAN CORPUSCULAR HEMOGLOBIN 22.5 pg (27.0-33.0); MEAN CORPUSCULAR HGB CONC 30.1 g/dl (32.0-36.5); MONO # 0.5 10^3/uL (0.0-0.8); MONO % 4.8 % (2.0-8.0); NEUTROPHILS % 83.8 % (36.0-66.0); PLATELET COUNT, AUTOMATED 307 10^3/uL (150-450); RED BLOOD COUNT 4.08 10^6/uL (4.00-5.40); WHITE BLOOD COUNT 10.7 10^3/uL (4.0-10.0)
[2023-04-04 23:47] LABS: CALCIUM LEVEL 8.1 MG/DL (8.3-10.6); CK-MB VALUE MASS 1.2 NG/ML (<3.6); CREATININE FOR GFR 1.29 MG/DL (0.55-1.30); GLOMERULAR FILTRATION RATE 41.4 (>32); MAGNESIUM LEVEL 1.7 MG/DL (1.8-2.4); MB/CK RELATIVE INDEX 0.76 (< OR =4); POTASSIUM SERUM 3.9 MMOL/L (3.5-5.1)
[2023-04-05] VITALS (12 sets, daily range): BP systolic 90–152; BP diastolic 45–77; TEMP 97–98.6; O2SAT 87–98
[2023-04-05] MEDS ORDERED: MAG SULF 1GM/100ML (MAG RUN) 1 GM in IV 1 EA IV ONE ×2
[2023-04-05] MEDS: diphenhydrAMINE CREAM 30GM TOP PRN (00:54)
[2023-04-05] MEDS ORDERED: NS 1,000 ML IV ONE (02:10)
[2023-04-05] MEDS: PERCOCET 5MG/325MG TAB PO PRN ×3 (04:13→23:31)
[2023-04-05] MEDS: HEPARIN SOD (PORCINE) 5000UNITS/ML 1ML VIAL/SYRINGE SC SCH ×3 (05:00→22:09)
[2023-04-05] MEDS ORDERED: clonazePAM 0.5 MG TAB PO ONE (05:00)
[2023-04-05] MEDS ORDERED: METOPROLOL SUCC *XL* 25MG TAB (TopROL *XL*) PO ONE (06:00)
[2023-04-05 07:48] LABS: EOS # 0.1 10^3/uL (0.0-0.5); EOS % 0.5 % (0.0-3.0); HEMATOCRIT 30.1 % (36.0-47.0); HEMOGLOBIN 8.9 g/dl (12.0-15.5); LYMPH # 0.9 10^3/uL (1.5-5.0); LYMPH % 9.3 % (24.0-44.0); MEAN CORPUSCULAR HEMOGLOBIN 22.5 pg (27.0-33.0); MEAN CORPUSCULAR HGB CONC 29.6 g/dl (32.0-36.5); MEAN CORPUSCULAR VOLUME 76.2 fl (80.0-96.0); MONO # 0.4 10^3/uL (0.0-0.8); MONO % 3.9 % (2.0-8.0); NEUTROPHILS # 8.4 10^3/uL (1.5-8.5); NEUTROPHILS % 85.9 % (36.0-66.0); PLATELET COUNT, AUTOMATED 315 10^3/uL (150-450); RED BLOOD COUNT 3.95 10^6/uL (4.00-5.40); WHITE BLOOD COUNT 9.8 10^3/uL (4.0-10.0)
[2023-04-05 08:21] LABS: C REACTIVE PROTEIN QUANTITATIV 18.6 MG/DL (<1.0); VANCOMYCIN LEVEL TROUGH 8.7 UG/ML (10.0-20.0)
[2023-04-05 08:23] LABS: CALCIUM LEVEL 7.7 MG/DL (8.3-10.6); CREATININE FOR GFR 1.1 MG/DL (0.55-1.30); GLOMERULAR FILTRATION RATE 49.8 (>32); MAGNESIUM LEVEL 1.8 MG/DL (1.8-2.4); POTASSIUM SERUM 3.7 MMOL/L (3.5-5.1)
[2023-04-05] MEDS ORDERED: VANCOMYCIN HCL 500 MG in D5W MINI-BAG PLUS 100 ML IV ONE (08:35)
[2023-04-05] MEDS ORDERED: ISOVUE-370 76% 100ML VIAL As Ordered ONE (10:03)
[2023-04-05] MEDS ORDERED: MAGNESIUM OXIDE 400MG TAB (MAG-OX) PO ONE (13:00)
[2023-04-05] MEDS ORDERED: MORPHINE 4 MG/ML 1ML VIAL IV ONE (13:00)
[2023-04-05] MEDS ORDERED: VANCOMYCIN HCL 1,000 MG, VIAL MATE ADAPTER 1 EACH in D5W 250 ML IV SCH (13:00)
[2023-04-05] MEDS ORDERED: POTASSIUM CHLORIDE 10MEQ SR TABLET PO ONE (13:00)
[2023-04-05] MEDS: LR 1,000 ML IV SCH ×2 (13:05→23:32)
[2023-04-05] MEDS: FERROUS SULFATE 325MG TAB PO SCH (14:19)
[2023-04-05] MEDS: ASPIRIN 81MG CHEW TABLET PO SCH (14:19)
[2023-04-05] MEDS: PANTOPRAZOLE 20 MG TAB PO SCH (14:20)
[2023-04-05] MEDS: clonazePAM 0.5 MG TAB PO SCH ×2 (14:20→20:39)
[2023-04-05] MEDS: OLANZapine 5 MG TAB PO SCH (14:20)
[2023-04-05] MEDS: DOCUSATE SODIUM 100MG CAPSULE PO SCH ×2 (15:30→20:39)
[2023-04-05] MEDS ORDERED: CEPHALEXIN 500 MG CAP PO SCH (16:50)
[2023-04-05] MEDS: CEPHALEXIN 500 MG CAP PO SCH ×2 (18:21→23:31)
[2023-04-05] MEDS: ATORVASTATIN 10 MG TAB PO SCH (20:38)
[2023-04-05] MEDS: SERTRALINE HCL 25 MG TABLET PO SCH (20:38)
[2023-04-05] MEDS: OLANZapine 2.5MG TABLET PO SCH (20:42)
[2023-04-05] MEDS: ACETAMINOPHEN TAB 650MG DOSE (2X325MG) PO PRN (22:08)
[2023-04-06] VITALS (9 sets, daily range): BP systolic 112–131; BP diastolic 56–63; TEMP 97.1–98.1; O2SAT 87–97
[2023-04-06 04:37] LABS: EOS # 0.1 10^3/uL (0.0-0.5); EOS % 0.7 % (0.0-3.0); HEMATOCRIT 27.3 % (36.0-47.0); LYMPH # 1.1 10^3/uL (1.5-5.0); LYMPH % 14.7 % (24.0-44.0); MEAN CORPUSCULAR HEMOGLOBIN 22.3 pg (27.0-33.0); MEAN CORPUSCULAR HGB CONC 29.3 g/dl (32.0-36.5); MEAN CORPUSCULAR VOLUME 76.3 fl (80.0-96.0); MONO # 0.4 10^3/uL (0.0-0.8); MONO % 5.4 % (2.0-8.0); NEUTROPHILS # 5.9 10^3/uL (1.5-8.5); NEUTROPHILS % 78.7 % (36.0-66.0); PLATELET COUNT, AUTOMATED 271 10^3/uL (150-450); RED BLOOD COUNT 3.58 10^6/uL (4.00-5.40); WHITE BLOOD COUNT 7.5 10^3/uL (4.0-10.0)
[2023-04-06 04:54] LABS: C REACTIVE PROTEIN QUANTITATIV 15.7 MG/DL (<1.0)
[2023-04-06 04:56] LABS: CALCIUM LEVEL 7.7 MG/DL (8.3-10.6); CREATININE FOR GFR 1.07 MG/DL (0.55-1.30); GLOMERULAR FILTRATION RATE 51.4 (>32); MAGNESIUM LEVEL 1.8 MG/DL (1.8-2.4); POTASSIUM SERUM 4.1 MMOL/L (3.5-5.1)
[2023-04-06] MEDS: HEPARIN SOD (PORCINE) 5000UNITS/ML 1ML VIAL/SYRINGE SC SCH ×3 (05:27→21:06)
[2023-04-06] MEDS: CEPHALEXIN 500 MG CAP PO SCH ×3 (05:27→18:06)
[2023-04-06] MEDS: DOCUSATE SODIUM 100MG CAPSULE PO SCH ×2 (08:03→21:06)
[2023-04-06] MEDS: clonazePAM 0.5 MG TAB PO SCH ×2 (08:03→21:05)
[2023-04-06] MEDS: FERROUS SULFATE 325MG TAB PO SCH (08:03)
[2023-04-06] MEDS: ASPIRIN 81MG CHEW TABLET PO SCH (08:03)
[2023-04-06] MEDS: OLANZapine 5 MG TAB PO SCH (08:03)
[2023-04-06] MEDS: PANTOPRAZOLE 20 MG TAB PO SCH (08:03)
[2023-04-06] MEDS: PERCOCET 5MG/325MG TAB PO PRN ×2 (08:11→19:51)
[2023-04-06] MEDS: diphenhydrAMINE CREAM 30GM TOP PRN (11:53)
[2023-04-06] MEDS ORDERED: FUROSEMIDE 20MG/2ML VIAL IV ONE (13:55)
[2023-04-06] MEDS: SERTRALINE HCL 25 MG TABLET PO SCH (21:06)
[2023-04-06] MEDS: ATORVASTATIN 10 MG TAB PO SCH (21:06)
[2023-04-06] MEDS: OLANZapine 2.5MG TABLET PO SCH (21:06)
[2023-04-07] MEDS: CEPHALEXIN 500 MG CAP PO SCH ×4 (00:25→17:55)
[2023-04-07] MEDS: HEPARIN SOD (PORCINE) 5000UNITS/ML 1ML VIAL/SYRINGE SC SCH ×3 (06:11→22:47)
[2023-04-07 06:26] VITALS: BP 154/96; TEMP 94; O2SAT 90
[2023-04-07 06:39] LABS: EOS # 0.1 10^3/uL (0.0-0.5); EOS % 1.1 % (0.0-3.0); HEMATOCRIT 27.3 % (36.0-47.0); HEMOGLOBIN 8.1 g/dl (12.0-15.5); LYMPH # 1.2 10^3/uL (1.5-5.0); LYMPH % 17.1 % (24.0-44.0); MEAN CORPUSCULAR HEMOGLOBIN 22.6 pg (27.0-33.0); MEAN CORPUSCULAR HGB CONC 29.7 g/dl (32.0-36.5); MONO # 0.5 10^3/uL (0.0-0.8); MONO % 6.9 % (2.0-8.0); NEUTROPHILS # 5.4 10^3/uL (1.5-8.5); NEUTROPHILS % 74.6 % (36.0-66.0); PLATELET COUNT, AUTOMATED 262 10^3/uL (150-450); RED BLOOD COUNT 3.59 10^6/uL (4.00-5.40); WHITE BLOOD COUNT 7.3 10^3/uL (4.0-10.0)
[2023-04-07 07:12] LABS: C REACTIVE PROTEIN QUANTITATIV 13.1 MG/DL (<1.0)
[2023-04-07 07:14] LABS: CALCIUM LEVEL 7.8 MG/DL (8.3-10.6); CREATININE FOR GFR 0.98 MG/DL (0.55-1.30); GLOMERULAR FILTRATION RATE 56.9 (>32); MAGNESIUM LEVEL 1.8 MG/DL (1.8-2.4); POTASSIUM SERUM 4.1 MMOL/L (3.5-5.1)
[2023-04-07 07:38] VITALS: TEMP 97.5
[2023-04-07] MEDS: ASPIRIN 81MG CHEW TABLET PO SCH (09:18)
[2023-04-07] MEDS: clonazePAM 0.5 MG TAB PO SCH ×2 (09:19→22:49)
[2023-04-07] MEDS: FERROUS SULFATE 325MG TAB PO SCH (09:19)
[2023-04-07] MEDS: PANTOPRAZOLE 20 MG TAB PO SCH (09:19)
[2023-04-07] MEDS: OLANZapine 5 MG TAB PO SCH (09:19)
[2023-04-07] MEDS: DOCUSATE SODIUM 100MG CAPSULE PO SCH ×2 (09:19→22:49)
[2023-04-07] MEDS: ACETAMINOPHEN TAB 650MG DOSE (2X325MG) PO PRN ×2 (09:19→17:58)
[2023-04-07] MEDS ORDERED: FUROSEMIDE 40MG/4ML VIAL IV ONE (10:05)
[2023-04-07 14:00] VITALS: BP 136/61; TEMP 97.2; O2SAT 91
[2023-04-07 19:43] VITALS: BP 140/62; TEMP 97.5; O2SAT 92
[2023-04-07] MEDS: PERCOCET 5MG/325MG TAB PO PRN (22:48)
[2023-04-07] MEDS: OLANZapine 2.5MG TABLET PO SCH (22:48)
[2023-04-07] MEDS: ATORVASTATIN 10 MG TAB PO SCH (22:48)
[2023-04-07] MEDS: SERTRALINE HCL 25 MG TABLET PO SCH (22:48)
[2023-04-08] MEDS: CEPHALEXIN 500 MG CAP PO SCH ×2 (00:57→05:49)
[2023-04-08 05:37] VITALS: BP 136/75; TEMP 97.5; O2SAT 93
[2023-04-08] MEDS: HEPARIN SOD (PORCINE) 5000UNITS/ML 1ML VIAL/SYRINGE SC SCH (05:49)
[2023-04-08] MEDS: diphenhydrAMINE CREAM 30GM TOP PRN (05:52)
[2023-04-08] MEDS ORDERED: CEPH500C PO (07:43)
[2023-04-08] MEDS ORDERED: COLA100C5 PO (07:43)
[2023-04-08] MEDS ORDERED: XARE10TA PO (07:43)
[2023-04-08] MEDS: PANTOPRAZOLE 20 MG TAB PO SCH (08:10)
[2023-04-08] MEDS: OLANZapine 5 MG TAB PO SCH (08:10)
[2023-04-08] MEDS: DOCUSATE SODIUM 100MG CAPSULE PO SCH (08:11)
[2023-04-08] MEDS: FERROUS SULFATE 325MG TAB PO SCH (08:11)
[2023-04-08] MEDS: ASPIRIN 81MG CHEW TABLET PO SCH (08:11)
[2023-04-08] MEDS: clonazePAM 0.5 MG TAB PO SCH (08:11)
[2023-04-08] MEDS: ACETAMINOPHEN TAB 650MG DOSE (2X325MG) PO PRN (08:12)
[2023-04-08 08:18] LABS: BASO % 0.1 % (0.0-1.0); EOS # 0.1 10^3/uL (0.0-0.5); EOS % 1.5 % (0.0-3.0); HEMATOCRIT 29.6 % (36.0-47.0); HEMOGLOBIN 8.8 g/dl (12.0-15.5); MEAN CORPUSCULAR HEMOGLOBIN 22.3 pg (27.0-33.0); MEAN CORPUSCULAR HGB CONC 29.7 g/dl (32.0-36.5); MEAN CORPUSCULAR VOLUME 74.9 fl (80.0-96.0); MONO # 0.5 10^3/uL (0.0-0.8); MONO % 6.8 % (2.0-8.0); NEUTROPHILS # 5.8 10^3/uL (1.5-8.5); NEUTROPHILS % 77.8 % (36.0-66.0); PLATELET COUNT, AUTOMATED 274 10^3/uL (150-450); RED BLOOD COUNT 3.95 10^6/uL (4.00-5.40); WHITE BLOOD COUNT 7.4 10^3/uL (4.0-10.0)
[2023-04-08 08:41] LABS: BLOOD UREA NITROGEN 16 MG/DL (9-23); CALCIUM LEVEL 8.1 MG/DL (8.3-10.6); CARBON DIOXIDE LEVEL 29 MMOL/L (20-31); CHLORIDE LEVEL 107 MMOL/L (98-107); CREATININE FOR GFR 0.88 MG/DL (0.55-1.30); GLOMERULAR FILTRATION RATE > 60.0 (>32); GLUCOSE, FASTING 106 MG/DL (74-106); MAGNESIUM LEVEL 1.8 MG/DL (1.8-2.4); POTASSIUM SERUM 4.1 MMOL/L (3.5-5.1); SODIUM LEVEL 140 MMOL/L (136-145)
== END 2023-04-08 08:40 | DRG 871 ==
LOC: M ED 18:37 → EDBD 18:37 → M ED INP 23:32 → ENRESERV 04-04 13:00 → M MSPAV 04-04 14:54 → M ICU 04-04 22:52 → M MS5PR 04-06 18:21
PROVIDERS: ADMIT Family Medicine; ATTEND Internal Medicine
DX: A41.9 Sepsis, unspecified organism (principal); S72.001A Fracture of unspecified part of neck of right femur, initial encounter for closed fracture; L03.115 Cellulitis of right lower limb; I47.19 Other supraventricular tachycardia; J98.11 Atelectasis; Z66 Do not resuscitate; F03.90 Unspecified dementia, unspecified severity, without behavioral disturbance, psychotic disturbance, mood disturbance, and anxiety; E78.5 Hyperlipidemia, unspecified; M35.00 Sjogren syndrome, unspecified; Z99.3 Dependence on wheelchair; E74.39 Other disorders of intestinal carbohydrate absorption; F41.9 Anxiety disorder, unspecified; F32.A Depression, unspecified; D64.9 Anemia, unspecified; R07.89 Other chest pain; E55.9 Vitamin D deficiency, unspecified; K21.9 Gastro-esophageal reflux disease without esophagitis; E03.9 Hypothyroidism, unspecified; G25.0 Essential tremor; Z98.41 Cataract extraction status, right eye; Z90.49 Acquired absence of other specified parts of digestive tract; Z90.79 Acquired absence of other genital organ(s); Z79.82 Long term (current) use of aspirin; Z79.899 Other long term (current) drug therapy; Z79.891 Long term (current) use of opiate analgesic; Z88.2 Allergy status to sulfonamides; Z20.822 Contact with and (suspected) exposure to COVID-19; W05.0XXA Fall from non-moving wheelchair, initial encounter; Y92.129 Unspecified place in nursing home as the place of occurrence of the external cause

== ENCOUNTER → 2023-04-13 | Outpatient (REF) ==
[~2023-04-13] MED LIST changes: +CEPH500C PO; +CETALOT TP; +COLA100C5 PO; +DULC10SU2 PR; +FERR1TAB8 PO; +OLAN1TAB16 PO; +OLAN2.5T25 PO; +PANT20TA51 PO; +SERT50TA29 PO; +XARE10TA PO; +[UNRECOGNIZED DRUG - CODE] TP
[2023-04-13 16:09] LABS: HEMATOCRIT 32.2 % (36.0-47.0); HEMOGLOBIN 9.3 g/dl (12.0-15.5); MEAN CORPUSCULAR HEMOGLOBIN 22.4 pg (27.0-33.0); MEAN CORPUSCULAR HGB CONC 28.9 g/dl (32.0-36.5); MEAN CORPUSCULAR VOLUME 77.4 fl (80.0-96.0); PLATELET COUNT, AUTOMATED 366 10^3/uL (150-450); RED BLOOD COUNT 4.16 10^6/uL (4.00-5.40); WHITE BLOOD COUNT 8.2 10^3/uL (4.0-10.0)
[2023-04-13 16:39] LABS: ALBUMIN 2.8 G/DL (3.2-5.2); BILIRUBIN,DIRECT 0.1 MG/DL (<0.4); BILIRUBIN,TOTAL 0.3 MG/DL (0.3-1.2); CALCIUM LEVEL 8.6 MG/DL (8.3-10.6); CREATININE FOR GFR 1.2 MG/DL (0.55-1.30); POTASSIUM SERUM 4.2 MMOL/L (3.5-5.1); TOTAL PROTEIN 6.3 G/DL (5.7-8.2)
[2023-04-13 16:41] LABS: THYROID STIMULATING HORMONE 11.686 uIU/ML (0.55-4.78)
[2023-04-13 17:22] LABS: HEPATITIS B CORE ANTIBODY IGM NEGATIVE (NEGATIVE); HEPATITIS C VIRUS ABY INDEX 0.07 INDEX (<0.8)
== END ==
PROVIDERS: ATTEND Physician Assistant
DX: L29.9 Pruritus, unspecified (principal)

== ENCOUNTER → 2023-04-15 | Outpatient (REF) | payer MEDICARE, BC, OTHER, MEDICAID | PROVIDERS: ATTEND Physician Assistant | DX: L03.90 Cellulitis, unspecified (principal); Z53.8 Procedure and treatment not carried out for other reasons ==

== ENCOUNTER → 2023-04-18 | Outpatient (REF) ==
[2023-04-18 11:31] LABS: HEMATOCRIT 31.9 % (36.0-47.0); HEMOGLOBIN 9.1 g/dl (12.0-15.5); MEAN CORPUSCULAR HEMOGLOBIN 22.1 pg (27.0-33.0); MEAN CORPUSCULAR HGB CONC 28.5 g/dl (32.0-36.5); MEAN CORPUSCULAR VOLUME 77.4 fl (80.0-96.0); PLATELET COUNT, AUTOMATED 474 10^3/uL (150-450); RED BLOOD COUNT 4.12 10^6/uL (4.00-5.40); WHITE BLOOD COUNT 9.5 10^3/uL (4.0-10.0)
[2023-04-18 11:53] LABS: BLOOD UREA NITROGEN 28 MG/DL (9-23); CALCIUM LEVEL 8.8 MG/DL (8.3-10.6); CARBON DIOXIDE LEVEL 30 MMOL/L (20-31); CHLORIDE LEVEL 105 MMOL/L (98-107); CREATININE FOR GFR 0.79 MG/DL (0.55-1.30); GLOMERULAR FILTRATION RATE > 60.0 (>32); GLUCOSE, FASTING 155 MG/DL (74-106); POTASSIUM SERUM 4.3 MMOL/L (3.5-5.1); SODIUM LEVEL 143 MMOL/L (136-145)
[2023-04-18 11:55] LABS: THYROXINE (T4) 6.5 UG/DL (4.5-10.9)
[2023-04-18 11:56] LABS: THYROID STIMULATING HORMONE 1.725 uIU/ML (0.55-4.78)
== END ==
PROVIDERS: ATTEND Physician Assistant
DX: L03.90 Cellulitis, unspecified (principal)

== ENCOUNTER → 2023-05-24 | Outpatient (REF) | payer MEDICARE, BC, OTHER, MEDICAID ==
[2023-05-24 13:40] LABS: HEMATOCRIT 28.1 % (36.0-47.0); HEMOGLOBIN 8.3 g/dl (12.0-15.5); MEAN CORPUSCULAR HEMOGLOBIN 22.6 pg (27.0-33.0); MEAN CORPUSCULAR HGB CONC 29.5 g/dl (32.0-36.5); MEAN CORPUSCULAR VOLUME 76.4 fl (80.0-96.0); PLATELET COUNT, AUTOMATED 441 10^3/uL (150-450); RED BLOOD COUNT 3.68 10^6/uL (4.00-5.40); WHITE BLOOD COUNT 7.8 10^3/uL (4.0-10.0)
[2023-05-24 14:05] LABS: BLOOD UREA NITROGEN 14 MG/DL (9-23); CALCIUM LEVEL 8.3 MG/DL (8.3-10.6); CARBON DIOXIDE LEVEL 27 MMOL/L (20-31); CHLORIDE LEVEL 103 MMOL/L (98-107); CREATININE FOR GFR 0.73 MG/DL (0.55-1.30); GLOMERULAR FILTRATION RATE > 60.0 (>32); GLUCOSE, FASTING 110 MG/DL (74-106); POTASSIUM SERUM 3.9 MMOL/L (3.5-5.1); SODIUM LEVEL 140 MMOL/L (136-145)
== END ==
PROVIDERS: ATTEND Physician Assistant
DX: R63.4 Abnormal weight loss (principal)

== ENCOUNTER → 2023-06-13 | Outpatient (REF) | payer MEDICARE, BC, OTHER, MEDICAID ==
[2023-06-13 11:50] LABS: HEMATOCRIT 28.4 % (36.0-47.0); HEMOGLOBIN 8.1 g/dl (12.0-15.5); MEAN CORPUSCULAR HEMOGLOBIN 21.7 pg (27.0-33.0); MEAN CORPUSCULAR HGB CONC 28.5 g/dl (32.0-36.5); MEAN CORPUSCULAR VOLUME 76.1 fl (80.0-96.0); PLATELET COUNT, AUTOMATED 485 10^3/uL (150-450); RED BLOOD COUNT 3.73 10^6/uL (4.00-5.40); WHITE BLOOD COUNT 9.3 10^3/uL (4.0-10.0)
[2023-06-13 12:14] LABS: BLOOD UREA NITROGEN 13 MG/DL (9-23); CALCIUM LEVEL 7.9 MG/DL (8.3-10.6); CARBON DIOXIDE LEVEL 28 MMOL/L (20-31); CHLORIDE LEVEL 102 MMOL/L (98-107); CREATININE FOR GFR 0.86 MG/DL (0.55-1.30); GLOMERULAR FILTRATION RATE > 60.0 (>32); GLUCOSE, FASTING 127 MG/DL (74-106); SODIUM LEVEL 137 MMOL/L (136-145)
== END ==
PROVIDERS: ATTEND Physician Assistant
DX: D64.9 Anemia, unspecified (principal)

== ENCOUNTER → 2023-06-15 | Outpatient (REF) | payer MEDICARE, BC, OTHER, MEDICAID ==
[2023-06-15 12:20] LABS: BLOOD UREA NITROGEN 12 MG/DL (9-23); CALCIUM LEVEL 8.2 MG/DL (8.3-10.6); CARBON DIOXIDE LEVEL 25 MMOL/L (20-31); CHLORIDE LEVEL 103 MMOL/L (98-107); CREATININE FOR GFR 0.76 MG/DL (0.55-1.30); GLOMERULAR FILTRATION RATE > 60.0 (>32); GLUCOSE, FASTING 149 MG/DL (74-106); POTASSIUM SERUM 3.7 MMOL/L (3.5-5.1); SODIUM LEVEL 139 MMOL/L (136-145)
== END ==
PROVIDERS: ATTEND Physician Assistant
DX: E87.6 Hypokalemia (principal)

== ENCOUNTER → 2023-06-20 | Outpatient (REF) | payer MEDICARE, BC, OTHER, MEDICAID ==
[2023-06-20 11:13] LABS: HEMATOCRIT 27.7 % (36.0-47.0); HEMOGLOBIN 7.7 g/dl (12.0-15.5); MEAN CORPUSCULAR HEMOGLOBIN 21.1 pg (27.0-33.0); MEAN CORPUSCULAR HGB CONC 27.8 g/dl (32.0-36.5); MEAN CORPUSCULAR VOLUME 75.9 fl (80.0-96.0); PLATELET COUNT, AUTOMATED 550 10^3/uL (150-450); RED BLOOD COUNT 3.65 10^6/uL (4.00-5.40); WHITE BLOOD COUNT 8.2 10^3/uL (4.0-10.0)
== END ==
PROVIDERS: ATTEND Physician Assistant
DX: D64.9 Anemia, unspecified (principal)

== ENCOUNTER → 2023-06-22 | Outpatient (REF) | payer MEDICARE, BC, OTHER, MEDICAID ==
[2023-06-22 10:53] LABS: HEMATOCRIT 28.5 % (36.0-47.0); HEMOGLOBIN 8.1 g/dl (12.0-15.5); MEAN CORPUSCULAR HEMOGLOBIN 21.6 pg (27.0-33.0); MEAN CORPUSCULAR HGB CONC 28.4 g/dl (32.0-36.5); PLATELET COUNT, AUTOMATED 575 10^3/uL (150-450); RED BLOOD COUNT 3.75 10^6/uL (4.00-5.40); WHITE BLOOD COUNT 8.8 10^3/uL (4.0-10.0)
== END ==
PROVIDERS: ATTEND Physician Assistant
DX: D64.9 Anemia, unspecified (principal)

== ENCOUNTER → 2023-06-29 | Outpatient (REF) | payer MEDICARE, BC, OTHER, MEDICAID ==
[2023-06-29 09:49] LABS: HEMOGLOBIN 7.7 g/dl (12.0-15.5); MEAN CORPUSCULAR HEMOGLOBIN 21.6 pg (27.0-33.0); MEAN CORPUSCULAR HGB CONC 28.5 g/dl (32.0-36.5); MEAN CORPUSCULAR VOLUME 75.6 fl (80.0-96.0); PLATELET COUNT, AUTOMATED 421 10^3/uL (150-450); RED BLOOD COUNT 3.57 10^6/uL (4.00-5.40); WHITE BLOOD COUNT 7.9 10^3/uL (4.0-10.0)
== END ==
PROVIDERS: ATTEND Physician Assistant
DX: D64.9 Anemia, unspecified (principal)

== ENCOUNTER → 2023-06-30 | Outpatient (REF) | payer MEDICARE, BC, OTHER, MEDICAID ==
[~2023-06-30] MED LIST changes: +ATIV1TAB10 PO; +CEFD300CAP PO; +HYOS125TA PO; +METR-265 PO; +MORP1SOL5 PO; +NYST1POW9 TOP; +ONDA-83 PO; +PANT-23 PO; +POTA-151 PO
[2023-07-01 04:47] LABS: HEMATOCRIT 26.4 % (36.0-47.0); HEMOGLOBIN 7.6 g/dl (12.0-15.5); MEAN CORPUSCULAR HEMOGLOBIN 21.5 pg (27.0-33.0); MEAN CORPUSCULAR HGB CONC 28.8 g/dl (32.0-36.5); MEAN CORPUSCULAR VOLUME 74.8 fl (80.0-96.0); PLATELET COUNT, AUTOMATED 398 10^3/uL (150-450); RED BLOOD COUNT 3.53 10^6/uL (4.00-5.40); WHITE BLOOD COUNT 8.1 10^3/uL (4.0-10.0)
== END ==
PROVIDERS: ATTEND Physician Assistant
DX: D64.9 Anemia, unspecified (principal)

== ENCOUNTER → 2023-07-01 | Outpatient (REF) | payer MEDICARE, BC, OTHER, MEDICAID ==
[2023-07-01 11:19] LABS: ALBUMIN 2.1 G/DL (3.2-5.2); ALKALINE PHOSPHATASE 109 U/L (46-116); ALT/SGPT < 9 U/L (7.0-40); AST/SGOT 12 U/L (<34); BILIRUBIN,TOTAL 0.3 MG/DL (0.3-1.2); BLOOD UREA NITROGEN 16 MG/DL (9-23); CALCIUM LEVEL 8.2 MG/DL (8.3-10.6); CARBON DIOXIDE LEVEL 27 MMOL/L (20-31); CHLORIDE LEVEL 104 MMOL/L (98-107); GLOMERULAR FILTRATION RATE > 60.0 (>32); GLUCOSE, FASTING 74 MG/DL (74-106); POTASSIUM SERUM 4.6 MMOL/L (3.5-5.1); SODIUM LEVEL 140 MMOL/L (136-145); TOTAL PROTEIN 5.8 G/DL (5.7-8.2)
== END ==
PROVIDERS: ATTEND Internal Medicine
DX: R50.9 Fever, unspecified (principal)

== ENCOUNTER → 2023-07-02 | Outpatient (REF) | payer MEDICARE, BC, OTHER, MEDICAID ==
[2023-07-02 13:22] LABS: HEMATOCRIT 25.8 % (36.0-47.0); HEMOGLOBIN 7.4 g/dl (12.0-15.5); MEAN CORPUSCULAR HEMOGLOBIN 21.4 pg (27.0-33.0); MEAN CORPUSCULAR HGB CONC 28.7 g/dl (32.0-36.5); MEAN CORPUSCULAR VOLUME 74.6 fl (80.0-96.0); PLATELET COUNT, AUTOMATED 397 10^3/uL (150-450); RED BLOOD COUNT 3.46 10^6/uL (4.00-5.40); WHITE BLOOD COUNT 8.5 10^3/uL (4.0-10.0)
== END ==
PROVIDERS: ATTEND Physician Assistant
DX: D64.9 Anemia, unspecified (principal)

== ENCOUNTER 2023-07-03 10:37 | Inpatient (IN) | payer MEDICARE, BC, OTHER, MEDICAID ==
[~2023-07-03] VITALS: Ht 160 cm; Wt 71.8 kg
[~2023-07-03 10:37] MED LIST changes: -ATIV1TAB10 PO; -CEFD300CAP PO; -HYOS125TA PO; -METR-265 PO; -MORP1SOL5 PO; -NYST1POW9 TOP; -ONDA-83 PO; -PANT-23 PO; -POTA-151 PO
[2023-07-03] MEDS ORDERED: NS 1,000 ML IV SCH (10:55)
[2023-07-03 11:29] LABS: EOS # 0.2 10^3/uL (0.0-0.5); EOS % 1.9 % (0.0-3.0); HEMATOCRIT 27.4 % (36.0-47.0); HEMOGLOBIN 7.8 g/dl (12.0-15.5); LYMPH # 1.4 10^3/uL (1.5-5.0); LYMPH % 14.5 % (24.0-44.0); MEAN CORPUSCULAR HGB CONC 28.5 g/dl (32.0-36.5); MEAN CORPUSCULAR VOLUME 73.9 fl (80.0-96.0); MONO # 0.7 10^3/uL (0.0-0.8); MONO % 7.2 % (2.0-8.0); NEUTROPHILS # 7.1 10^3/uL (1.5-8.5); PLATELET COUNT, AUTOMATED 449 10^3/uL (150-450); RED BLOOD COUNT 3.71 10^6/uL (4.00-5.40); WHITE BLOOD COUNT 9.4 10^3/uL (4.0-10.0)
[2023-07-03 11:46] LABS: INR 1.2; PROTHROMBIN TIME 14.9 SECONDS (12.5-14.5)
[2023-07-03 11:50] LABS: LIPASE 14 U/L (12-53)
[2023-07-03 11:52] LABS: ALBUMIN 2.2 G/DL (3.2-5.2); ALKALINE PHOSPHATASE 116 U/L (46-116); ALT/SGPT < 9 U/L (7.0-40); AST/SGOT 13 U/L (<34); BILIRUBIN,DIRECT 0.1 MG/DL (<0.4); BILIRUBIN,TOTAL 0.3 MG/DL (0.3-1.2); BLOOD UREA NITROGEN 15 MG/DL (9-23); CALCIUM LEVEL 8.3 MG/DL (8.3-10.6); CARBON DIOXIDE LEVEL 29 MMOL/L (20-31); CHLORIDE LEVEL 103 MMOL/L (98-107); CREATININE FOR GFR 0.84 MG/DL (0.55-1.30); GLOMERULAR FILTRATION RATE > 60.0 (>32); GLUCOSE, FASTING 94 MG/DL (74-106); POTASSIUM SERUM 4.6 MMOL/L (3.5-5.1); SODIUM LEVEL 138 MMOL/L (136-145); TOTAL PROTEIN 6.1 G/DL (5.7-8.2)
[2023-07-03] MEDS ORDERED: ISOVUE-370 76% 100ML VIAL As Ordered ONE (15:31)
[2023-07-03] MEDS ORDERED: PIPERACILLIN/TAZOBACTAM SOD 3.375 GM in D5W MINI-BAG PLUS 50 ML IV ONE (16:50)
[2023-07-03] MEDS ORDERED: MORPHINE 2 MG/ML 1ML VIAL IV PRN ×2 (17:30)
[2023-07-03] MEDS ORDERED: ACETAMINOPHEN 500 MG TAB PO PRN ×2 (17:30)
[2023-07-03] MEDS ORDERED: PANT-23 PO (18:25)
[2023-07-03] MEDS ORDERED: POTA-151 PO (18:25)
[2023-07-03] MEDS ORDERED: ONDA-83 PO (18:25)
[2023-07-03] MEDS ORDERED: NYST1POW9 TOP (18:25)
[2023-07-03] MEDS ORDERED: HOME MED LIST COMPLETE! XX SCH (18:30)
[2023-07-03] MEDS: clonazePAM 0.5 MG TAB PO SCH (19:16)
[2023-07-03] MEDS ORDERED: PILL CUTTER 1 EACH XX ONE (19:17)
[2023-07-03] MEDS: LR 1,000 ML IV SCH (19:21)
[2023-07-03] MEDS ORDERED: OLANZapine 2.5MG TABLET PO SCH (21:00)
[2023-07-03 21:05] VITALS: BP 127/58; TEMP 97; O2SAT 95
[2023-07-03] MEDS: PIPERACILLIN/TAZOBACTAM SOD 3.375 GM in D5W MINI-BAG PLUS 50 ML IV SCH (22:33)
[2023-07-03] MEDS: SERTRALINE HCL 25 MG TABLET PO SCH (22:34)
[2023-07-03] MEDS: OLANZapine 5 MG TAB PO SCH (22:34)
[2023-07-03] MEDS: ATORVASTATIN 10 MG TAB PO SCH (22:34)
[2023-07-04] VITALS (10 sets, daily range): BP systolic 105–149; BP diastolic 64–90; TEMP 96.5–97.9; O2SAT 91–98
[2023-07-04] MEDS: PIPERACILLIN/TAZOBACTAM SOD 3.375 GM in D5W MINI-BAG PLUS 50 ML IV SCH ×4 (05:08→23:19)
[2023-07-04 07:56] LABS: HEMATOCRIT 30.3 % (36.0-47.0); HEMOGLOBIN 9.1 g/dl (12.0-15.5); MEAN CORPUSCULAR HEMOGLOBIN 22.7 pg (27.0-33.0); MEAN CORPUSCULAR VOLUME 75.6 fl (80.0-96.0); PLATELET COUNT, AUTOMATED 435 10^3/uL (150-450); RED BLOOD COUNT 4.01 10^6/uL (4.00-5.40); WHITE BLOOD COUNT 9.1 10^3/uL (4.0-10.0)
[2023-07-04 08:12] LABS: BLOOD UREA NITROGEN 14 MG/DL (9-23); CARBON DIOXIDE LEVEL 26 MMOL/L (20-31); CHLORIDE LEVEL 103 MMOL/L (98-107); CREATININE FOR GFR 0.79 MG/DL (0.55-1.30); GLOMERULAR FILTRATION RATE > 60.0 (>32); GLUCOSE, FASTING 83 MG/DL (74-106); MAGNESIUM LEVEL 1.6 MG/DL (1.8-2.4); POTASSIUM SERUM 4.4 MMOL/L (3.5-5.1); SODIUM LEVEL 139 MMOL/L (136-145)
[2023-07-04] MEDS: ENOXAPARIN 40MG/0.4ML SYRINGE (J1650 PER 10MG) SC SCH (08:23)
[2023-07-04] MEDS: PANTOPRAZOLE 40MG TAB (PROTONIX) PO SCH (08:24)
[2023-07-04] MEDS: OLANZapine 5 MG TAB PO SCH ×2 (08:24→20:22)
[2023-07-04] MEDS: clonazePAM 0.5 MG TAB PO SCH ×2 (08:24→20:22)
[2023-07-04] MEDS ORDERED: MAG SULF 1GM/100ML (MAG RUN) 1 GM in IV 1 EA IV ONE (09:00)
[2023-07-04] MEDS: LR 1,000 ML IV SCH ×3 (09:59→23:30)
[2023-07-04] MEDS: SERTRALINE HCL 25 MG TABLET PO SCH (20:22)
[2023-07-04] MEDS: ATORVASTATIN 10 MG TAB PO SCH (20:23)
[2023-07-05 01:59] VITALS: BP 130/88; TEMP 97.3; O2SAT 92
[2023-07-05] MEDS: PIPERACILLIN/TAZOBACTAM SOD 3.375 GM in D5W MINI-BAG PLUS 50 ML IV SCH ×2 (05:28→11:00)
[2023-07-05 05:43] VITALS: BP 129/64; TEMP 97.5; O2SAT 93
[2023-07-05 06:51] LABS: HEMOGLOBIN 8.4 g/dl (12.0-15.5); MEAN CORPUSCULAR HEMOGLOBIN 22.1 pg (27.0-33.0); MEAN CORPUSCULAR VOLUME 76.3 fl (80.0-96.0); PLATELET COUNT, AUTOMATED 425 10^3/uL (150-450); WHITE BLOOD COUNT 8.2 10^3/uL (4.0-10.0)
[2023-07-05 07:10] LABS: BLOOD UREA NITROGEN 11 MG/DL (9-23); CALCIUM LEVEL 7.9 MG/DL (8.3-10.6); CARBON DIOXIDE LEVEL 27 MMOL/L (20-31); CHLORIDE LEVEL 105 MMOL/L (98-107); CREATININE FOR GFR 0.77 MG/DL (0.55-1.30); GLOMERULAR FILTRATION RATE > 60.0 (>32); GLUCOSE, FASTING 88 MG/DL (74-106); MAGNESIUM LEVEL 1.8 MG/DL (1.8-2.4); POTASSIUM SERUM 3.8 MMOL/L (3.5-5.1); SODIUM LEVEL 140 MMOL/L (136-145)
[2023-07-05] MEDS: OLANZapine 5 MG TAB PO SCH ×2 (07:44→20:11)
[2023-07-05] MEDS: PANTOPRAZOLE 40MG TAB (PROTONIX) PO SCH (07:44)
[2023-07-05] MEDS: LR 1,000 ML IV SCH (07:44)
[2023-07-05] MEDS: clonazePAM 0.5 MG TAB PO SCH ×2 (07:44→18:19)
[2023-07-05] MEDS: ENOXAPARIN 40MG/0.4ML SYRINGE (J1650 PER 10MG) SC SCH (07:44)
[2023-07-05] MEDS ORDERED: MORPHINE 10MG/0.5ML ORAL CONCENTRATE SOLUTION U/D SL PRN (12:05)
[2023-07-05] MEDS ORDERED: ONDANSETRON 4MG ORAL DISINTEGRATING TAB PO PRN (12:05)
[2023-07-05] MEDS ORDERED: HYOSCYAMINE SULFATE 0.125 MG SUBL TABLET PO PRN (12:05)
[2023-07-05] MEDS ORDERED: LORazepam 1 MG TAB PO PRN (12:05)
[2023-07-05] MEDS: CEFDINIR 300 MG CAP (OMNICEF) PO SCH ×2 (12:40→20:11)
[2023-07-05] MEDS: metroNIDAZOLE (FLAGYL) 500MG TABLET PO SCH ×2 (16:21→20:12)
[2023-07-05] MEDS: SERTRALINE HCL 25 MG TABLET PO SCH (20:12)
[2023-07-06] MEDS ORDERED: HYOS125TA PO (08:00)
[2023-07-06] MEDS ORDERED: ATIV1TAB10 PO (08:00)
[2023-07-06] MEDS ORDERED: METR-265 PO (08:00)
[2023-07-06] MEDS ORDERED: CEFD300CAP PO (08:00)
[2023-07-06] MEDS ORDERED: MORP1SOL5 PO (08:00)
[2023-07-06] MEDS ORDERED: OXYC1TAB23 PO (08:03)
[2023-07-06] MEDS: clonazePAM 0.5 MG TAB PO SCH (09:15)
[2023-07-06] MEDS: PANTOPRAZOLE 40MG TAB (PROTONIX) PO SCH (09:15)
[2023-07-06] MEDS: OLANZapine 5 MG TAB PO SCH (09:15)
[2023-07-06] MEDS: CEFDINIR 300 MG CAP (OMNICEF) PO SCH (09:15)
[2023-07-06] MEDS: metroNIDAZOLE (FLAGYL) 500MG TABLET PO SCH (09:15)
== END 2023-07-06 12:55 | DRG 375 ==
LOC: EDBD 10:37 → M ED 10:37 → M ED INP 17:26 → ENRESERV 20:30 → M MS5PR 21:28
PROVIDERS: ADMIT Family Medicine; ATTEND Internal Medicine Nephrology
PROC: 30233N1 Transfusion of Nonautologous Red Blood Cells into Peripheral Vein, Percutaneous Approach (ICD-10-PCS; principal; 2023-07-04)
DX: C18.9 Malignant neoplasm of colon, unspecified (principal); K56.1 Intussusception; Z66 Do not resuscitate; E03.9 Hypothyroidism, unspecified; K63.89 Other specified diseases of intestine; F03.90 Unspecified dementia, unspecified severity, without behavioral disturbance, psychotic disturbance, mood disturbance, and anxiety; F41.9 Anxiety disorder, unspecified; E78.5 Hyperlipidemia, unspecified; M35.00 Sjogren syndrome, unspecified; K21.9 Gastro-esophageal reflux disease without esophagitis; E55.9 Vitamin D deficiency, unspecified; G25.0 Essential tremor; Z98.41 Cataract extraction status, right eye; Z90.49 Acquired absence of other specified parts of digestive tract; Z90.79 Acquired absence of other genital organ(s); Z79.899 Other long term (current) drug therapy; Z88.1 Allergy status to other antibiotic agents; Z88.2 Allergy status to sulfonamides; Z91.011 Allergy to milk products; Z20.822 Contact with and (suspected) exposure to COVID-19

== ENCOUNTER → 2023-07-06 | Outpatient (REF) | payer BC, MEDICAID, MEDICARE, OTHER ==
[~2023-07-06] MED LIST changes: +ATIV1TAB10 PO; +CEFD300CAP PO; +HYOS125TA PO; +METR-265 PO; +MORP1SOL5 PO; +NYST1POW9 TOP; +ONDA-83 PO; +PANT-23 PO; +POTA-151 PO
== END ==
PROVIDERS: ATTEND Physician Assistant
DX: Z53.8 Procedure and treatment not carried out for other reasons (principal)

== ENCOUNTER → 2023-07-11 | Outpatient (REF) | payer MEDICARE, BC, OTHER, MEDICAID | PROVIDERS: ATTEND Physician Assistant | DX: Z53.8 Procedure and treatment not carried out for other reasons (principal) ==

== ENCOUNTER → 2023-08-03 | Outpatient (CLI) | payer MEDICARE, BC, OTHER, MEDICAID | LOC: M SOG 08:10 | PROVIDERS: ATTEND Physician Assistant | DX: M25.551 Pain in right hip (principal) ==